=== PATIENT | female | born 1950 | race Caucasian/White ===

== ENCOUNTER 2020-09-22 19:38 | Inpatient (IN) ==
--- NOTE | 2020-09-22 20:25 | DR.DIZZY ---
HPI Time seen Time Seen by Provider: 09/22/20 20:00 HPI Comment HPI Comment: weakness- fevers- malaise. chills. dysuria. no cough- no SOB. Complaint Chief Complaint Doctor Comments: as above Chief Complaint:: pt has been to two ER visits at other facilities this week with two negative covid tests. Daughter states pt is dehydrated and only received 1 bag of fluid last night at the ED. Daughter states pt is very weak. Self Treatment fo Chief Complaint: two ER visits. discharged both times. COVID-19 Coronavirus risk:travel/contact w/high risk person: No Has patient experienced Coronavirus symptoms: No Nurses Notes Reviewed Nurses Notes Review: Yes Source History Provided: Patient and Family Member Mode of Arrival Mode of Arrival: Wheelchair Timing Onset of Chief Complaint: 09/15/20 Context Stroke Symptoms: None PMH PMH Past Medical History: Yes Past Medical History: Diabetes and Hypertension Past Surgical History: Yes Surgical History: Unknown Family History History of Family Medical Conditions: Yes Family Medical History: Diabetes Mellitus and Hypertension Infectious screening In the last 2 months have you had wt loss of >10#?: NO Have you had fever, night sweats or hemotysis?: No Have you traveled outside the country in the last 6 months?: No Isolation: Droplet ROS Review of Systems Constitutional: See HPI, Fever, Malaise, Weakness and Fatigue Eyes: No Symptoms Reported ENTM: No Symptoms Reported Respiratoy: No Symptoms Reported Cardiovascular: No Symptoms Reported Gastrointestinal/Abdominal: No Symptoms Reported Genitourinary: See HPI and Dysuria Neurological: No Symptoms Reported Musculoskeletal: No Symptoms Reported Integumentary: No Symptoms Reported Hematologic/Lymphatic: No Symptoms Reported Endocrine: No Symptoms Reported PE Vital Signs Vitals: Temperature 100.8 F Pulse Rate [Left] 76 Pulse Rate 74 Respiratory Rate 27 Blood Pressure [Left Arm] 168/79 Blood Pressure 169/80 O2 Sat by Pulse Oximetry 91 General Limitations: Altered Mental Status General Appearance: Alert and In Distress Head Head Exam: Normal Inspection and Atraumatic Eyes Eye exam: Normal Appearance, PERRL and EOMI ENT ENT Exam: Normal Exam, Normal Oropharynx, Normal External Ear Exam and Mucous Membranes Dry Neck Neck Exam: Normal Inspection Respiratory Respiratory Exam: Normal Lung Sounds Bilat; negative Accessory Muscle Use and Respiratory Distress Abdominal Exam Abdominal Exam: Normal Inspection, Normal Bowel Sounds and Soft Extremeties Extremities Exam: Normal Inspection and Full ROM Back Back Exam: Normal Inspection Neurologic Neurological Exam: Alert and Oriented X3; negative Motor Sensory Deficit and Reflexes Normal MDM Additional Information Obtained Additional Information Obtained From: Family Differential Diagnosis Differential Diagnosis: Dehydration COURSE Treatment Treatment: IV fluid resusc, IV abx. improving in ED. Reevaluation 1st: Improved ROR Labs Reviewed Laboratory Results Reviewed?: Yes Result Diagrams: 09/22/20 20:05 09/22/20 20:05 Laboratory: WBC 19.8 X10^3/uL (3.6-10.0) H 09/22/20 20:05 RBC 4.51 X10^6/uL (3.5-5.4) 09/22/20 20:05 Hgb 11.6 g/dL (12.0-16.0) L 09/22/20 20:05 Hct 37.0 % (36.0-47.0) 09/22/20 20:05 MCV 82.1 fL (80.0-100.0) 09/22/20 20:05 MCH 25.8 pg (27.0-34.0) L 09/22/20 20:05 MCHC 31.4 g/dL (33.0-35.0) L 09/22/20 20:05 RDW 18.0 % (11.6-16.5) H 09/22/20 20:05 Plt Count 168 X10^3/uL (150.0-450.0) 09/22/20 20:05 Plt Count Comment Adequate (ADEQUATE) 09/22/20 20:05 MPV 9.7 fL (7.4-11.0) 09/22/20 20:05 Neut % (Auto) 55.1 % (42.0-75.0) 09/22/20 20:05 Lymph % (Auto) 22.0 % (21.0-51.0) 09/22/20 20:05 [place] % (Auto) 22.0 % (0.0-13.0) H 09/22/20 20:05 Eos % (Auto) 0.1 % (0.9-2.9) L 09/22/20 20:05 Baso % (Auto) 0.8 % (0.2-1.0) 09/22/20 20:05 Neut # (Auto) 10.9 x10^3/uL (2.2-4.8) H 09/22/20 20:05 Lymph # (Auto) 4.4 X10^3/uL (1.3-2.9) H 09/22/20 20:05 [place] # (Auto) 4.3 x10^3/uL (0.3-0.8) H 09/22/20 20:05 Eos # (Auto) 0.0 x10^3/uL (0.0-0.2) 09/22/20 20:05 Baso # (Auto) 0.2 X10^3/uL (0.0-0.1) H 09/22/20 20:05 Absolute Nucleated RBC 1.6 /100WBC 09/22/20 20:05 Total Counted 100 09/22/20 20:05 Neutrophils % (Manual) 66 % (39-76) 09/22/20 20:05 Lymphocytes % (Manual) 20 % (13-43) 09/22/20 20:05 Monocytes % (Manual) 14 % (4-9) H 09/22/20 20:05 Plt Morphology Comment Normal (NORMAL) 09/22/20 20:05 RBC Morphology Abnormal (NORMAL) A 09/22/20 20:05 Hypochromasia Slight A 09/22/20 20:05 Anisocytosis Slight A 09/22/20 20:05 ESR 7 MM/HOUR (0-20) 09/22/20 20:05 PT 15.2 SECONDS (11.8-14.3) 09/22/20 20:05 INR Target Range - 09/22/20 20:05 INR 1.24 (0.8-1.3) 09/22/20 20:05 Sodium 140 mmol/L (136-145) 09/22/20 20:05 Corrected Sodium 140 mmol/L (136-145) 09/22/20 20:05 Potassium 3.7 mmol/L (3.5-5.1) 09/22/20 20:05 Chloride 103 mmol/L (98-107) 09/22/20 20:05 Carbon Dioxide 21.6 mmol/L (21-32) 09/22/20 20:05 BUN 14 mg/dL (7-18) 09/22/20 20:05 Creatinine 0.88 mg/dL (0.55-1.02) 09/22/20 20:05 Est GFR (MDRD) Af Amer > 60 (>60) 09/22/20 20:05 Est GFR (MDRD) Non-Af > 60 (>60) 09/22/20 20:05 Glucose 117 mg/dL (65-99) H 09/22/20 20:05 Lactic Acid 3.8 mmol/L (0.4-2.0) H 09/22/20 20:05 Calcium 10.1 mg/dL (8.5-10.1) 09/22/20 20:05 Corrected Calcium 10.9 mg/dL (8.5-10.1) H 09/22/20 20:05 Magnesium 2.0 mg/dL (1.7-2.9) 09/22/20 20:05 Total Bilirubin 1.20 mg/dL (0.2-1.0) H 09/22/20 20:05 AST 225 Units/L (15-37) H 09/22/20 20:05 ALT 73 Units/L (12-78) 09/22/20 20:05 Alkaline Phosphatase 378 Units/L (46-116) H 09/22/20 20:05 Lactate Dehydrogenase 4395 Units/L (81-234) H 09/22/20 20:05 Creatine Kinase 267 Units/L (26-192) H 09/22/20 20:05 CK-MB (CK-2) 1.3 ng/mL (0-4.0) 09/22/20 20:05 CK/CKMB % Calc 0.5 % (<4) 09/22/20 20:05 Troponin I < 0.02 ng/mL (0-1.5) 09/22/20 20:05 C-Reactive Protein 48.90 mg/L (0-3.0) H 09/22/20 20:05 B-Natriuretic Peptide 91.1 pg/mL (0-79) H 09/22/20 20:05 Total Protein 6.3 g/dL (6.4-8.2) L 09/22/20 20:05 Albumin 3.0 g/dL (3.4-5.0) L 09/22/20 20:05 Globulin 3.3 g/dL (2.5-4.5) 09/22/20 20:05 Albumin/Globulin Ratio 0.9 Ratio (1.1-2.1) L 09/22/20 20:05 Specimen Type Catherized urine 09/22/20 21:01 Urine Color Yellow (YELLOW) 09/22/20 21:01 Urine Appearance Slightly hazy (CLEAR) 09/22/20 21:01 Urine pH 5.0 (5.0 - 8.0) 09/22/20 21:01 Ur Specific [place] 1.020 (1.000-1.030) 09/22/20 21:01 Urine Protein 4+ (NEGATIVE) 09/22/20 21: Urine Glucose (UA) Negative (NEGATIVE) 09/22/20 21: Urine Ketones 2+ (NEGATIVE) 09/22/20 21: Urine Occult Blood 4+ (NEGATIVE) 09/22/20 21: Urine Nitrite Positive (NEGATIVE) 09/22/20 21: Urine Bilirubin Negative (NEGATIVE) 09/22/20 21: Urine Urobilinogen 2+ (NORMAL) 09/22/20 21: Ur Leukocyte Esterase 1+ (NEGATIVE) 09/22/20 21:01 Urine Opiates Screen Negative (NEG=<300) 09/22/20 21:01 Urine Methadone Screen Negative (NEG=<300) 09/22/20 21:01 Ur Barbiturates Screen Negative (NEG=<200) 09/22/20 21:01 Ur Phencyclidine Scrn Negative (NEG=<25) 09/22/20 21:01 Ur Amphetamines Screen Negative (NEG=<1000) 09/22/20 21: U Benzodiazepines Scrn Negative (NEG=<200) 09/22/20 21:01 Urine Cocaine Screen Negative (NEG=<300) 09/22/20 21:01 U Marijuana (THC) Screen Negative (NEG=<50) 09/22/20 21:01 Other Results Comments: elev lactate, elev wbc. pos UA XRAY XRAY Interpreted by: Radiologist X-ray Results: neg plain films chest Opioid Opioid Risk Tool Total: 0 Total Score Risk Category: Low Risk Copyright: Efren CARDENAS predicting aberrant behaviors Diagnosis Discharge Problem: Sepsis, Acute UTI Instructions Forms: Precautions for COVID19 Patient Portal Social Distancing ADDITIONAL NOTES Additional Notes Additional Notes: spoke w dr tong who agrees to admit for urosepsis
[2020-09-22] MEDS ORDERED: NS 1000 ML 1,000 ML ONE ×2 (20:28→21:32)
[2020-09-22] MEDS: NS 1000 ML 1,000 ML IV ONE ×4 (20:32→21:42)
[2020-09-22 20:46] LABS: BASOPHILS # (AUTO) 0.2 X10^3/uL (0.0-0.1); BASOPHILS % (AUTO) 0.8 % (0.2-1.0); EOSINOPHILS % (AUTO) 0.1 % (0.9-2.9); HEMOGLOBIN 11.6 g/dL (12.0-16.0); LYMPHOCYTES # (AUTO) 4.4 X10^3/uL (1.3-2.9); MEAN CORPUSCULAR HEMOGLOBIN 25.8 pg (27.0-34.0); MEAN CORPUSCULAR HGB CONC 31.4 g/dL (33.0-35.0); MEAN CORPUSCULAR VOLUME 82.1 fL (80.0-100.0); MEAN PLATELET VOLUME 9.7 fL (7.4-11.0); MONOCYTES # (AUTO) 4.3 x10^3/uL (0.3-0.8); NEUTROPHILS # (AUTO) 10.9 x10^3/uL (2.2-4.8); NEUTROPHILS % (AUTO) 55.1 % (42.0-75.0); PLATELET COUNT 168 X10^3/uL (150.0-450.0); RED BLOOD COUNT 4.51 X10^6/uL (3.5-5.4); WHITE BLOOD COUNT 19.8 X10^3/uL (3.6-10.0)
--- NOTE | 2020-09-22 20:53 | RAD ---
HISTORYShortness of breath; WeaknessSTUDYCHEST, 1 VIEWCOMPARISONNone availableTECHNIQUEChest radiographic imaging, AP portable projection, 1 imageFINDINGSNo cardiomegaly.No focal airspace disease.No pleural effusion.No pneumothorax.No acute osseous abnormality.IMPRESSIONNo imaging findings of acute cardiopulmonary disease.Electronically signed by: Martin Rivers (Sep 22, 2020 20:50:40)
[2020-09-22 20:59] LABS: LACTIC ACID 3.8 mmol/L (0.4-2.0)
[2020-09-22 21:08] LABS: BLOOD UREA NITROGEN 14 mg/dL (7-18); CALCIUM 10.1 mg/dL (8.5-10.1); CARBON DIOXIDE 21.6 mmol/L (21-32); CHLORIDE 103 mmol/L (98-107); COR NA(FOR HYPERGLY) 140 mmol/L (136-145); CREATININE 0.88 mg/dL (0.55-1.02); SODIUM 140 mmol/L (136-145); TROPONIN I < 0.02 ng/mL (0-1.5); eGFR NON BLACK RACES > 60 (>60)
[2020-09-22 21:12] LABS: ALANINE AMINOTRANSFERASE 73 Units/L (12-78); ALKALINE PHOSPHATASE 378 Units/L (46-116); ASPARTATE AMINO TRANSFERASE 225 Units/L (15-37); CKMB % 0.5 % (<4); COR CA(FOR HYPOALB) 10.9 mg/dL (8.5-10.1); CREATINE KINASE 267 Units/L (26-192); CREATINE KINASE MB 1.3 ng/mL (0-4.0); TOTAL PROTEIN 6.3 g/dL (6.4-8.2)
[2020-09-22 21:22] LABS: ANISOCYTOSIS SLIGHT; HYPOCHROMASIA SLIGHT; PLATELET MORPHOLOGY COMMENT NORMAL (NORMAL)
[2020-09-22 21:24] LABS: ERYTHROCYTE SEDIMENTATION RATE 7 MM/HOUR (0-20)
[2020-09-22 21:26] LABS: LACTATE DEHYDROGENASE 4395 Units/L (81-234)
[2020-09-22] MEDS ORDERED: ROCEPHIN 1 GRAM IV PREMIX 1 G/50 ML IV.SOLN. IV ONE ×2 (21:28→21:33)
[2020-09-22 21:36] LABS: BILIRUBIN,URINE NEGATIVE (NEGATIVE); BLOOD/HEMOGLOBIN,URINE 4+ (NEGATIVE); GLUCOSE, URINE NEGATIVE (NEGATIVE); KETONES,URINE 2+ (NEGATIVE); LEUKOCYTE ESTERASE ,URINE 1+ (NEGATIVE); NITRITES,URINE POSITIVE (NEGATIVE); PROTEIN,URINE 4+ (NEGATIVE); UROBILINOGEN,URINE 2+ (NORMAL)
[2020-09-22 21:38] LABS: APPEARANCE,URINE SLIGHTLY HAZY (CLEAR); COLOR,URINE YELLOW (YELLOW)
[2020-09-23 00:32] VITALS: BMI 25.8
[2020-09-23] MEDS: NS 1000 ML 1,000 ML IV SCH ×3 (00:45→15:45)
[2020-09-23] MEDS ORDERED: NS 1000 ML 1,000 ML ONE (00:49)
[2020-09-23 05:22] LABS: BASOPHILS # (AUTO) 0.1 X10^3/uL (0.0-0.1); BASOPHILS % (AUTO) 0.4 % (0.2-1.0); EOSINOPHILS % (AUTO) 0.1 % (0.9-2.9); HEMATOCRIT 33.4 % (36.0-47.0); HEMOGLOBIN 10.5 g/dL (12.0-16.0); LYMPHOCYTES # (AUTO) 3.9 X10^3/uL (1.3-2.9); LYMPHOCYTES % (AUTO) 26.6 % (21.0-51.0); MEAN CORPUSCULAR HEMOGLOBIN 25.8 pg (27.0-34.0); MEAN CORPUSCULAR HGB CONC 31.6 g/dL (33.0-35.0); MEAN CORPUSCULAR VOLUME 81.8 fL (80.0-100.0); MEAN PLATELET VOLUME 10.2 fL (7.4-11.0); MONOCYTES # (AUTO) 2.6 x10^3/uL (0.3-0.8); MONOCYTES % (AUTO) 17.6 % (0.0-13.0); NEUTROPHILS # (AUTO) 8.1 x10^3/uL (2.2-4.8); NEUTROPHILS % (AUTO) 55.3 % (42.0-75.0); PLATELET COUNT 150 X10^3/uL (150.0-450.0); RED BLOOD COUNT 4.08 X10^6/uL (3.5-5.4); RED CELL DISTRIBUTION WIDTH 18.5 % (11.6-16.5); WHITE BLOOD COUNT 14.6 X10^3/uL (3.6-10.0)
[2020-09-23 05:30] LABS: ALANINE AMINOTRANSFERASE 57 Units/L (12-78); ALBUMIN 2.7 g/dL (3.4-5.0); ALKALINE PHOSPHATASE 310 Units/L (46-116); ASPARTATE AMINO TRANSFERASE 186 Units/L (15-37); BLOOD UREA NITROGEN 13 mg/dL (7-18); CALCIUM 9.2 mg/dL (8.5-10.1); CARBON DIOXIDE 21.9 mmol/L (21-32); CHLORIDE 106 mmol/L (98-107); COR CA(FOR HYPOALB) 10.2 mg/dL (8.5-10.1); COR NA(FOR HYPERGLY) 142 mmol/L (136-145); CREATININE 0.71 mg/dL (0.55-1.02); SODIUM 141 mmol/L (136-145); TOTAL PROTEIN 5.7 g/dL (6.4-8.2); eGFR NON BLACK RACES > 60 (>60)
[2020-09-23 06:05] LABS: ANISOCYTOSIS SLIGHT; HYPOCHROMASIA SLIGHT; PLATELET MORPHOLOGY COMMENT NORMAL (NORMAL)
[2020-09-23] MEDS: LEVAQUIN PREMIX IV 500 MG 500 MG/100 ML BAG IV SCH (10:37)
[2020-09-23] MEDS ORDERED: PHARMACY CONSULT - TPN XX SCH (11:00)
[2020-09-23] MEDS: FORTAZ or TAZICEF VIAL INJ 1 G in NS 100 ML IV + SPIKE MINIBAG* 100 ML IV SCH ×5 (11:11→21:23)
--- NOTE | 2020-09-23 12:18 | DR.H&P ---
H&P - History & Physical for Day of: H&P Date: 09/23/20 - Chief Complaint Chief Complaint: NAUSEA, VOMITING, WEAKNESS, FEVER, CHILLS, DYSURIA, AND SHORTNESS OF BREATH - History of Present Illness History of Present Illness: IS A 70 YEAR OLD FEMALE WHO PRESENTED TO THE ER WITH COMPLAINTS OF NAUSEA, VOMITING, WEAKNESS, FEVER, CHILLS, DYSURIA, AND SHORTNESS OF BREATH. PATIENT HAS BEEN SEEN AT AN ER FACILITY ON TWO DIFFERENT OCCASIONS THIS WEEK. SHE WAS GIVEN ONE LITER OF IV FLUIDS ON WEDNESDAY NIGHT AND WAS THEN DISCHARGED. SHE HAS TESTED NEGATIVE FOR COVID-19 TWO TIMES WELL. HER PMH INCLUDES DIABETES AND HYPERTENSION. ON ARRIVAL TO THE ER, VITALS WERE 100.8-76-18-92%RA-183/92. LABS WERE OBTAINED. ABNORMAL LAB VALUES INCLUDE THE FOLLOWING: WBC 19.8, HGB 11.6, GLUCOSE 117, LACTIC ACID 3.8, TOTAL BILI 1.20, AST 225, ALK PHOS 378, LACTATE DEHYDROGENASE 4395, CREATINE KINASE 267, CRP 48.90, BNP 91.1, TOTAL PROTEIN 6.3, ALBUMIN 3.0. URINALYSIS REVEALED POSITIVE NITRITES, OCCULT BLOOD 1+, KETONES 2+, LEUKOCYTES 1+, PROTEIN 4+. COVID-19, INFLUENZA, AND RSV NEGATIVE. BLOOD CULTURES WERE SET UP. A CHEST XRAY WAS OBTAINED AND REVEALED: No imaging findings of acute cardiopulmonary disease. WHILE IN THE ER, SHE WAS GIVEN A NORMAL SALINE BOLUS X 2 LITERS, ROCEPHIN 1G IV X 1. SHE WAS ADMITTED TO THE HOSPITAL FOR FURTHER EVALUATION AND TREATMENT OF SEPSIS DUE TO UTI. SHE WAS STARTED ON NS AT KVO, LEVAQUIN 500MG IV DAILY, FORTAZ 1G IV Q8H, ZOFRAN 4MG IV Q4H PRN NAUSEA, CLINIMIX FOR NUTRITION AT 40 ML/HR. OTHERWISE, WE WILL FOLLOW UP WITH AM LABS AND CONTINUE TO MONITOR. TIME SPENT ON CLINICAL ASSESSMENT, REVIEWING LABS AND IMAGING, DECISION MAKING, AND DOCUMENTATION GREATER THAN 75 MINUTES. - Past Medical History Past Medical History: Hypertension, Diabetes - Past Surgical History Surgical History: Appendectomy, Cholecystectomy, Hysterectomy, Weight Loss Surgery - Family History Family Medical History: Hypertension - Social History Does patient currently use any type of tobacco product: No Have you used tobacco products in the last 12 months: No Type of Tobacco Use: None Alcohol Use: None Drug Use: None - Medications Home Medications: codeine Allergy (Verified 09/22/20 20:50) CONTINUE taking the following medications aspirin [Aspir-81] 81 mg PO DAILY 09/22/20 [History] benzonatate 200 mg PO Q8H PRN 09/22/20 [History] bisoprolol-hydrochlorothiazide 1 tab PO DAILY 09/22/20 [History] ciprofloxacin HCl 500 mg PO BID 09/22/20 [History] levothyroxine 75 mcg PO DAILY 09/22/20 [History] lisinopril 10 mg PO DAILY 09/22/20 [History] metformin 500 mg PO DAILY 09/22/20 [History] ondansetron 4 mg PO Q8H PRN 09/22/20 [History] sertraline 50 mg PO DAILY 09/22/20 [History] simvastatin 40 mg PO QHS 09/22/20 [History] - Review of Systems Constitutional: See HPI, Fever, Chills, Weakness Eyes: No Symptoms Reported ENT: No Symptoms Reported Respiratory: Shortness of Breath. denies: Cough Cardiovascular: No Symptoms Reported Gastrointestinal: See HPI, Nausea, Vomiting Genitourinary: No Symptoms Reported Musculoskeletal: No Symptoms Reported Skin: No Symptoms Reported Neurological: Weakness - Physical Exam Vital Signs: Temperature 97.1 F Pulse Rate [Left] 70 Pulse Rate 64 Respiratory Rate 20 Blood Pressure [Left Arm] 191/80 Blood Pressure 135/84 O2 Sat by Pulse Oximetry 94 Oriented: Normal Eyes: Normal Ear: Normal Nose: Normal Throat: Normal Respiratory: Diminished Throughout Cardiovascular: Normal : Normal Auscultation: Bowel Sounds: Normal Palpation: Normal Tenderness: Normal Skin: Normal Musculoskeletal: Normal Psychiatric: Normal Mood Description: Calm Affect: Normal Speech Pattern: Clear - Assessment/Plan (1) Acute UTI Status: Acute Plan: ADMIT, NS AT KVO, LEVAQUIN 500MG IV DAILY, FORTAZ 1G IV Q8H, ZOFRAN 4MG IV Q4H PRN NAUSEA, CLINIMIX FOR NUTRITION AT 40 ML/HR. (2) Sepsis Qualifiers: Sepsis type: sepsis due to unspecified organism Sepsis acute organ dysfunction status: unspecified Qualified Code(s): A41.9 - Sepsis, unspecified organism Status: Acute (3) Intractable nausea and vomiting Status: Acute - Allergies Allergies/Adverse Reactions: Allergies Allergy/AdvReac Type Severity Reaction Status Date / Time codeine Allergy Verified 09/22/20 20:50
[2020-09-23] MEDS: CLINIMIX IV SCH (13:15)
[2020-09-23] MEDS ORDERED: BUTT CREAM (COMPOUND) TOP PRN (13:45)
[2020-09-23] MEDS: VISTARIL PO PRN (15:58)
[2020-09-24] MEDS: VISTARIL PO PRN
[2020-09-24] MEDS: NS 1000 ML 1,000 ML IV SCH ×4 (01:17→22:47)
[2020-09-24 04:35] LABS: BASOPHILS # (AUTO) 0.3 X10^3/uL (0.0-0.1); EOSINOPHILS % (AUTO) 0.1 % (0.9-2.9); HEMATOCRIT 34.1 % (36.0-47.0); HEMOGLOBIN 10.7 g/dL (12.0-16.0); LYMPHOCYTES # (AUTO) 6.6 X10^3/uL (1.3-2.9); LYMPHOCYTES % (AUTO) 27.1 % (21.0-51.0); MEAN CORPUSCULAR HEMOGLOBIN 25.4 pg (27.0-34.0); MEAN CORPUSCULAR HGB CONC 31.3 g/dL (33.0-35.0); MEAN CORPUSCULAR VOLUME 81.1 fL (80.0-100.0); MONOCYTES # (AUTO) 6.4 x10^3/uL (0.3-0.8); MONOCYTES % (AUTO) 26.2 % (0.0-13.0); NEUTROPHILS # (AUTO) 11.1 x10^3/uL (2.2-4.8); NEUTROPHILS % (AUTO) 45.6 % (42.0-75.0); RED BLOOD COUNT 4.21 X10^6/uL (3.5-5.4); RED CELL DISTRIBUTION WIDTH 19.1 % (11.6-16.5); WHITE BLOOD COUNT 24.5 X10^3/uL (3.6-10.0)
[2020-09-24 04:48] LABS: ALANINE AMINOTRANSFERASE 45 Units/L (12-78); ALBUMIN 2.7 g/dL (3.4-5.0); ALKALINE PHOSPHATASE 302 Units/L (46-116); ASPARTATE AMINO TRANSFERASE 185 Units/L (15-37); BLOOD UREA NITROGEN 13 mg/dL (7-18); CARBON DIOXIDE 22.3 mmol/L (21-32); CHLORIDE 104 mmol/L (98-107); COR NA(FOR HYPERGLY) 138 mmol/L (136-145); CREATININE 0.79 mg/dL (0.55-1.02); SODIUM 138 mmol/L (136-145); TOTAL PROTEIN 5.7 g/dL (6.4-8.2); eGFR NON BLACK RACES > 60 (>60)
[2020-09-24] MEDS ORDERED: POTASSIUM CHLORIDE LIQ 20 MEQ UDC PO PRN (05:19)
[2020-09-24] MEDS ORDERED: POTASSIUM CHL 40 MEQ/NS 0.45% 500 ML IV PRN (05:19)
[2020-09-24] MEDS ORDERED: MICRO K EXTEN CAP 10 MEQ PO PRN (05:19)
[2020-09-24] MEDS ORDERED: KLOR-CON PO PRN (05:19)
[2020-09-24] MEDS ORDERED: POTASSIUM CHL 60 MEQ/NS 0.45% 500 ML IV PRN (05:19)
[2020-09-24] MEDS ORDERED: K-DUR TAB 20 MEQ PO PRN (05:19)
[2020-09-24] MEDS: FORTAZ or TAZICEF VIAL INJ 1 G in NS 100 ML IV + SPIKE MINIBAG* 100 ML IV SCH ×3 (06:21→21:02)
[2020-09-24 08:36] LABS: AMYLASE 15 Units/L (25-115); LIPASE 193 Units/L (73-393)
[2020-09-24] MEDS: CLINIMIX IV SCH (08:47)
[2020-09-24] MEDS: LEVAQUIN PREMIX IV 500 MG 500 MG/100 ML BAG IV SCH (08:56)
[2020-09-24] MEDS ORDERED: NS 100 ML IV 100 ML IV ONE (11:01)
--- NOTE | 2020-09-24 11:52 | CT ---
HISTORY:Nausea, vomiting, abdominal pain, history of gastric surgery, appendectomyStudy: CT abdomen and pelvis with contrastComparison:NoneTechnique: Multiple axial images of the abdomen and pelvis were obtained with IV contrast. Oral contrast was not administered. Dose reduction techniques including Automated Exposure Control (AEC) and adjustment of mA and kV were utilized.FINDINGS:The lung bases are clear. Spleen is mildly enlarged measuring 13.6 centimeters in craniocaudal dimension. There is fatty infiltration of the pancreas. No renal calculi or obstructive uropathy. There is a 1.9 centimeter hypodense lesion in the liver axial image 28 for which further evaluation with ultrasound is recommended. There is gallbladder wall thickening also noted which can be further evaluated with ultrasound. There is an indeterminate partially enhancing right adrenal mass measuring 2 centimeters for which further evaluation is recommended. There is fat stranding around the duodenum and retroperitoneum. Correlate for pancreatitis or duodenitis.No free intraperitoneal air. Small amount of ascites is seen along the left pericolic gutter and in the pelvis. Appendix is removed. 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 No evidence of abscess. Scattered colonic diverticula are present without inflammation.There are degenerative changes of the lumbosacral spine with grade 1-2 anterolisthesis of L4 on L5. No pars defects identified. The vascular structures are unremarkable . No pathologically enlarged lymph nodes are identified.Urinary bladder is decompressed by a Zazueta catheter. Uterus is removed.IMPRESSION ABDOMEN/PELVIS:1. Mild nonspecific retroperitoneal stranding around the duodenum for which clinical correlation for duodenitis or pancreatitis is recommended. A small amount of free fluid is seen along the left pericolic gutter and in the pelvis.2. Gallbladder wall thickening which can be further evaluated ultrasound. There is also 1.9 centimeter hypodense lesion in the right hepatic lobe which can be further evaluated with ultrasound.3. Indeterminate 2 centimeter right adrenal nodule that does not meet criteria for adenoma. Nonemergent adrenal protocol CT recommended for full characterization.4. Mild splenomegaly and additional chronic findings as described.Electronically signed by: LUZ MARINA GUAMAN (Sep 24, 2020 11:50:17)
[2020-09-24 11:57] LABS: BILIRUBIN,URINE NEGATIVE (NEGATIVE); BLOOD/HEMOGLOBIN,URINE 5+ (NEGATIVE); GLUCOSE, URINE NEGATIVE (NEGATIVE); KETONES,URINE NEGATIVE (NEGATIVE); LEUKOCYTE ESTERASE ,URINE NEGATIVE (NEGATIVE); NITRITES,URINE NEGATIVE (NEGATIVE); PROTEIN,URINE 3+ (NEGATIVE); UROBILINOGEN,URINE 1+ (NORMAL)
[2020-09-24 12:07] LABS: APPEARANCE,URINE SLIGHTLY HAZY (CLEAR); BACTERIA,URINE TRACE /HPF (NEGATIVE); COLOR,URINE YELLOW (YELLOW); SQUAMOUS EPITHELIAL CELL,UR RARE /HPF (NEGATIVE)
--- NOTE | 2020-09-24 15:09 | US ---
HISTORY:Right upper quadrant painStudy: Right upper quadrant abdominal ultrasoundComparison: CT same dayTechnique: Multiple elizabeth scale and color flow Doppler images of the right upper quadrant were obtained.Findings:There is mild fatty infiltration of the liver. There is a hyperechoic mass in the right hepatic lobe measuring 2.6 centimeters compatible with a hemangioma when correlated with today's CT exam. There is hepatopetal flow in the portal vein. Gallbladder is distended and thick walled measuring 5 mm. There is pericholecystic fluid and large volume of dense sludge in the gallbladder lumen. A positive sonographic Agudelo sign was reported.The right kidney appears normal in size without focal parenchymal mass or nephrolithiasis. The right kidney measures 9.8 centimeters. No evidence of hydronephrosis. The visualized portions of the pancreas are unremarkable. IVC is patent.IMPRESSION:1. Distended gallbladder filled with sludge. There is gallbladder wall thickening, pericholecystic fluid and positive sonographic Agudelo sign concerning for acute cholecystitis.2. Benign 2.6 centimeter hemangioma in the liver.Electronically signed by: LUZ MARINA GUAMAN (Sep 24, 2020 15:07:53)
[2020-09-25 04:46] LABS: BASOPHILS # (AUTO) 0.4 X10^3/uL (0.0-0.1); BASOPHILS % (AUTO) 1.2 % (0.2-1.0); EOSINOPHILS # (AUTO) 0.1 x10^3/uL (0.0-0.2); EOSINOPHILS % (AUTO) 0.4 % (0.9-2.9); HEMATOCRIT 34.3 % (36.0-47.0); HEMOGLOBIN 10.8 g/dL (12.0-16.0); LYMPHOCYTES # (AUTO) 7.8 X10^3/uL (1.3-2.9); LYMPHOCYTES % (AUTO) 25.2 % (21.0-51.0); MEAN CORPUSCULAR HEMOGLOBIN 25.4 pg (27.0-34.0); MEAN CORPUSCULAR HGB CONC 31.3 g/dL (33.0-35.0); MONOCYTES % (AUTO) 25.8 % (0.0-13.0); NEUTROPHILS # (AUTO) 14.7 x10^3/uL (2.2-4.8); NEUTROPHILS % (AUTO) 47.4 % (42.0-75.0); PLATELET COUNT 158 X10^3/uL (150.0-450.0); RED BLOOD COUNT 4.24 X10^6/uL (3.5-5.4); RED CELL DISTRIBUTION WIDTH 19.2 % (11.6-16.5)
[2020-09-25 04:54] LABS: ALANINE AMINOTRANSFERASE 39 Units/L (12-78); ALBUMIN 2.5 g/dL (3.4-5.0); ALKALINE PHOSPHATASE 303 Units/L (46-116); ASPARTATE AMINO TRANSFERASE 214 Units/L (15-37); BLOOD UREA NITROGEN 11 mg/dL (7-18); CARBON DIOXIDE 22.2 mmol/L (21-32); CHLORIDE 105 mmol/L (98-107); COR CA(FOR HYPOALB) 11.2 mg/dL (8.5-10.1); CREATININE 0.74 mg/dL (0.55-1.02); SODIUM 140 mmol/L (136-145); TOTAL PROTEIN 5.5 g/dL (6.4-8.2); eGFR NON BLACK RACES > 60 (>60)
[2020-09-25 05:20] LABS: PLATELET MORPHOLOGY COMMENT NORMAL (NORMAL)
[2020-09-25] MEDS: FORTAZ or TAZICEF VIAL INJ 1 G in NS 100 ML IV + SPIKE MINIBAG* 100 ML IV SCH ×3 (05:39→22:40)
[2020-09-25] MEDS: LEVAQUIN PREMIX IV 500 MG 500 MG/100 ML BAG IV SCH (08:21)
[2020-09-25] MEDS: NS 1000 ML 1,000 ML IV SCH ×3 (08:21→23:31)
[2020-09-25] MEDS ORDERED: TRACE ELEMENTS IV SCH ×10 (09:00→13:00)
[2020-09-25] MEDS ORDERED: CLINIMIX IV SCH ×10 (09:00→13:00)
[2020-09-25] MEDS ORDERED: [UNRECOGNIZED DRUG - OTHER] IV SCH ×10 (09:00→13:00)
--- NOTE | 2020-09-25 11:07 | PCM.PROG ---
Progress Note - Progress Note for Day of Date of Exam: 09/24/20 - Subjective Subjective: WAS ADMITTED FOR TREATMENT OF ACUTE UTI, SEPSIS, AND ABDOMINAL PAIN. SHE CONTINUES WITH ABDOMINAL PAIN AND NAUSEA THIS MORNING. SHE HAS HAD AN ELEVATED TEMPERATURE THROUGHOUT THE NIGHT. ON EXAMINATION, HEART IS REGULAR IN RATE AND RHYTHM. BILATERAL LUNGS ARE NOTED WITH DIMINISHED LUNG SOUNDS THROUGHOUT. ABDOMEN IS ROUND, SOFT, AND NOTED WITH DIFFUSE TENDERNESS TO PALPATION. NORMAL BOWEL SOUNDS ARE NOTED IN ALL QUADRANTS. HER VITALS THIS MORNING ARE: 99.8-84-20-91%-179/81. LABS WERE OBTAINED. ABNORMAL LAB VALUES INCLUDE THE FOLLOWING: WBC 24.5, HGB 10.7, HCT 34.1, POTASSIUM 3.4, GLUCOSE 115, AST 185, ALK PHOS 302, TOTAL PROTEIN 5.7, ALBUMIN 2.7, AMYLASE 15, 15. BLOOD CULTURES ARE PENDING. WE OBTAINED AN ABDOMEN/PELVIS CT WITH CONTRAST. IT REVEALED: 1. Mild nonspecific retroperitoneal stranding around the duodenum for which clinical correlation for duodenitis or pancreatitis is recommended. A small amount of free fluid is seen along the left pericolic gutter and in the p yesenia. 2. Gallbladder wall thickening which can be further evaluated ultrasound. There is also 1.9 centimeter hypodense lesion in the right hepatic lobe which can be further evaluated with ultrasound. 3. Indeterminate 2 centimeter right adrenal nodule that does not meet criteria for adenoma. Nonemergent adrenal protocol CT recommended for full characterization. 4. Mild splenomegaly. SHE IS CURRENTLY RECEIVING NS AT KVO, LEVAQUIN 500MG IV DAILY, FORTAZ 1G IV Q8H, ZOFRAN 4MG IV Q4H PRN NAUSEA, CLINIMIX FOR NUTRITION AT 40 ML/HR. TODAY, WE WILL REPEAT A URINALYSIS AND SET UP A URINE CULTURE. WE WILL OBTAIN A GALLBLADDER ULTRASOUND. OTHERWISE, WE PLAN TO FOLLOW UP WITH AM LABS AND CONTINUE TO MO NITOR. TIME SPENT ON CLINICAL ASSESSMENT, REVIEWING LABS AND IMAGING, DECISION MAKING, AND DOCUMENTATION GREATER THAN 75 MINUTES. - Past Medical Family Social History Past Med/Fam/Surg Hx: No changes since H&P Allergies: Allergies codeine Allergy (Verified 09/22/20 20:50) - Review of Systems ROS: No change since H&P - Vital Signs and I&O's Vital Signs: Temperature 99.1 F Pulse Rate [Left] 83 Pulse Rate 64 Respiratory Rate 16 Blood Pressure [Right Arm] 183/85 Blood Pressure [Left Arm] 158/79 Blood Pressure 135/84 O2 Sat by Pulse Oximetry 94 Intake and Output: Intake & Output 09/22/20 09/23/20 09/24/20 09/25/20 11:59 11:59 11:59 11:59 Intake Total 980 / 980 2800 / 2800 2470 / 2470 Output Total 600 / 600 1225 / 1225 2350 / 2350 Balance 380 / 380 1575 / 1575 120 / 120 - Physical Exam Oriented: Normal Eyes: Normal Ear: Normal Nose: Normal Throat: Normal Respiratory: Generalized, Diminished Cardiovascular: Normal : Normal Auscultation: Bowel Sounds: Normal Palpation: Normal Tenderness: Normal Skin: Normal Musculoskeletal: Normal Psychiatric: Normal Mood Description: Calm Affect: Normal Speech Pattern: Appropriate - Laboratory and Diagnostics Result Diagrams: 09/25/20 04:05 09/25/20 04:05 Labs: 09/24/20 11:46 Urine,Clean Catch Urine Culture - Preliminary 09/22/20 20:30 Blood Blood Culture - Preliminary 09/22/20 20:05 Blood Blood Culture - Preliminary Laboratory WBC 31.0 X10^3/uL (3.6-10.0) H* 09/25/20 04:05 RBC 4.24 X10^6/uL (3.5-5.4) 09/25/20 04:05 Hgb 10.8 g/dL (12.0-16.0) L 09/25/20 04:05 Hct 34.3 % (36.0-47.0) L 09/25/20 04:05 MCV 81.0 fL (80.0-100.0) 09/25/20 04:05 MCH 25.4 pg (27.0-34.0) L 09/25/20 04:05 MCHC 31.3 g/dL (33.0-35.0) L 09/25/20 04:05 RDW 19.2 % (11.6-16.5) H 09/25/20 04:05 Plt Count 158 X10^3/uL (150.0-450.0) 09/25/20 04:05 Plt Count Comment Adequate (ADEQUATE) 09/25/20 04:05 MPV 10.0 fL (7.4-11.0) 09/25/20 04:05 Neut % (Auto) 47.4 % (42.0-75.0) 09/25/20 04:05 Lymph % (Auto) 25.2 % (21.0-51.0) 09/25/20 04:05 [place] % (Auto) 25.8 % (0.0-13.0) H 09/25/20 04:05 Eos % (Auto) 0.4 % (0.9-2.9) L 09/25/20 04:05 Baso % (Auto) 1.2 % (0.2-1.0) H 09/25/20 04:05 Neut # (Auto) 14.7 x10^3/uL (2.2-4.8) H 09/25/20 04:05 Lymph # (Auto) 7.8 X10^3/uL (1.3-2.9) H 09/25/20 04:05 [place] # (Auto) 8.0 x10^3/uL (0.3-0.8) H 09/25/20 04:05 Eos # (Auto) 0.1 x10^3/uL (0.0-0.2) 09/25/20 04:05 Baso # (Auto) 0.4 X10^3/uL (0.0-0.1) H 09/25/20 04:05 Absolute Nucleated RBC 6.3 /100WBC 09/25/20 04:05 Total Counted 100 09/25/20 04:05 Neutrophils % (Manual) 68 % (39-76) 09/25/20 04:05 Band Neutrophils % Cancelled 09/24/20 04:00 Lymphocytes % (Manual) 20 % (13-43) 09/25/20 04:05 Monocytes % (Manual) 12 % (4-9) H 09/25/20 04:05 Eosinophils % (Manual) Cancelled 09/24/20 04:00 Basophils % (Manual) Cancelled 09/24/20 04:00 Metamyelocytes % Cancelled 09/24/20 04:00 Myelocytes % Cancelled 09/24/20 04:00 Promyelocytes % Cancelled 09/24/20 04:00 Nucleated RBCs 12 09/25/20 04:05 Atypical Lymphocytes Cancelled 09/24/20 04:00 Blast Cells Cancelled 09/24/20 04:00 Smudge Cells Cancelled 09/24/20 04:00 Toxic Granulation Cancelled 09/24/20 04:00 Dohle Bodies Cancelled 09/24/20 04:00 Isabeal Rods Cancelled 09/24/20 04:00 Plt Clumps, EDTA Cancelled 09/24/20 04:00 Giant Platelets Cancelled 09/24/20 04:00 Plt Morphology Comment Normal (NORMAL) 09/25/20 04:05 RBC Morphology Normal (NORMAL) 09/25/20 04:05 Dimorphic RBCs Cancelled 09/24/20 04:00 Polychromasia Cancelled 09/24/20 04:00 Hypochromasia Cancelled 09/24/20 04:00 Poikilocytosis Cancelled 09/24/20 04:00 Basophilic Stippling Cancelled 09/24/20 04:00 Anisocytosis Cancelled 09/24/20 04:00 Microcytosis Cancelled 09/24/20 04:00 Macrocytosis Cancelled 09/24/20 04:00 Spherocytes Cancelled 09/24/20 04:00 Pappenheimer Bodies Cancelled 09/24/20 04:00 Sickle Cells Cancelled 09/24/20 04:00 Target Cells Cancelled 09/24/20 04:00 Tear Drop Cells Cancelled 09/24/20 04:00 Ovalocytes Cancelled 09/24/20 04:00 Stomatocytes Cancelled 09/24/20 04:00 Helmet Cells Cancelled 09/24/20 04:00 Lockhart-Antoine Bodies Cancelled 09/24/20 04:00 [place] Rings Cancelled 09/24/20 04:00 [place] Cells Cancelled 09/24/20 04:00 Crenated Cell Cancelled 09/24/20 04:00 Acanthocytes (Spur) Cancelled 09/24/20 04:00 Rouleaux Cancelled 09/24/20 04:00 Schistocytes Cancelled 09/24/20 04:00 ESR 7 MM/HOUR (0-20) 09/22/20 20:05 PT 15.2 SECONDS (11.8-14.3) 09/22/20 20:05 INR Target Range - 09/22/20 20:05 INR 1.24 (0.8-1.3) 09/22/20 20:05 Sodium 140 mmol/L (136-145) 09/25/20 04:05 Corrected Sodium TNP 09/25/20 04:05 Potassium 3.4 mmol/L (3.5-5.1) L 09/25/20 04:05 Chloride 105 mmol/L (98-107) 09/25/20 04:05 Carbon Dioxide 22.2 mmol/L (21-32) 09/25/20 04:05 BUN 11 mg/dL (7-18) 09/25/20 04:05 Creatinine 0.74 mg/dL (0.55-1.02) 09/25/20 04:05 Est GFR (MDRD) Af Amer > 60 (>60) 09/25/20 04:05 Est GFR (MDRD) Non-Af > 60 (>60) 09/25/20 04:05 Glucose 91 mg/dL (65-99) 09/25/20 04:05 POC Glucose (mg/dL) 96 mg/dL (65-99) 09/24/20 20:02 Lactic Acid 3.3 mmol/L (0.4-2.0) H 09/25/20 09:09 Calcium 10.0 mg/dL (8.5-10.1) 09/25/20 04:05 Corrected Calcium 11.2 mg/dL (8.5-10.1) H 09/25/20 04:05 Magnesium 2.0 mg/dL (1.7-2.9) 09/24/20 04:00 Total Bilirubin 1.00 mg/dL (0.2-1.0) 09/25/20 04:05 AST 214 Units/L (15-37) H 09/25/20 04:05 ALT 39 Units/L (12-78) 09/25/20 04:05 Alkaline Phosphatase 303 Units/L (46-116) H 09/25/20 04:05 Lactate Dehydrogenase 4395 Units/L (81-234) H 09/22/20 20:05 Creatine Kinase 267 Units/L (26-192) H 09/22/20 20:05 CK-MB (CK-2) 1.3 ng/mL (0-4.0) 09/22/20 20:05 CK/CKMB % Calc 0.5 % (<4) 09/22/20 20:05 Troponin I < 0.02 ng/mL (0-1.5) 09/22/20 20:05 C-Reactive Protein 48.90 mg/L (0-3.0) H 09/22/20 20:05 B-Natriuretic Peptide 91.1 pg/mL (0-79) H 09/22/20 20:05 Total Protein 5.5 g/dL (6.4-8.2) L 09/25/20 04:05 Albumin 2.5 g/dL (3.4-5.0) L 09/25/20 04:05 Globulin 3.0 g/dL (2.5-4.5) 09/25/20 04:05 Albumin/Globulin Ratio 0.8 Ratio (1.1-2.1) L 09/25/20 04:05 Amylase 15 Units/L (25-115) L 09/24/20 04:10 Lipase 193 Units/L (73-393) 09/24/20 04:10 Specimen Type Clean catch urine 09/24/20 11:46 Urine Color Yellow (YELLOW) 09/24/20 11:46 Urine Appearance Slightly hazy (CLEAR) 09/24/20 11:46 Urine pH 6.0 (5.0 - 8.0) 09/24/20 11:46 Ur Specific [place] 1.010 (1.000-1.030) 09/24/20 11:46 Urine Protein 3+ (NEGATIVE) 09/24/20 11:46 Urine Glucose (UA) Negative (NEGATIVE) 09/24/20 11:46 Urine Ketones Negative (NEGATIVE) 09/24/20 11:46 Urine Occult Blood 5+ (NEGATIVE) 09/24/20 11:46 Urine Nitrite Negative (NEGATIVE) 09/24/20 11:46 Urine Bilirubin Negative (NEGATIVE) 09/24/20 11:46 Urine Urobilinogen 1+ (NORMAL) 09/24/20 11:46 Ur Leukocyte Esterase Negative (NEGATIVE) 09/24/20 11:46 Urine RBC 10-20 /HPF (0-3) A 09/24/20 11:46 Urine WBC 5-10 /HPF (0-5) A 09/24/20 11:46 Ur Squamous Epith Cells Rare /HPF (NEGATIVE) 09/24/20 11:46 Urine Bacteria Trace /HPF (NEGATIVE) 09/24/20 11:46 Ur Culture Indicated? Yes/culture set up 09/24/20 11:46 Urine Opiates Screen Negative (NEG=<300) 09/22/20 21:01 Urine Methadone Screen Negative (NEG=<300) 09/22/20 21:01 Ur Barbiturates Screen Negative (NEG=<200) 09/22/20 21:01 Ur Phencyclidine Scrn Negative (NEG=<25) 09/22/20 21:01 Ur Amphetamines Screen Negative (NEG=<1000) 09/22/20 21:01 U Benzodiazepines Scrn Negative (NEG=<200) 09/22/20 21:01 Urine Cocaine Screen Negative (NEG=<300) 09/22/20 21:01 U Marijuana (THC) Screen Negative (NEG=<50) 09/22/20 21:01 SARS-CoV-2 (PCR) Negative (NEGATIVE) 09/23/20 00:08 Influenza Type A (PCR) Negative (NEGATIVE) 09/23/20 00:08 Influenza Type B (PCR) Negative (NEGATIVE) 09/23/20 00:08 RSV (PCR) Negative (NEGATIVE) 09/23/20 00:08 - Plan (1) Acute UTI Status: Acute Plan: NS AT KVO, LEVAQUIN 500MG IV DAILY, FORTAZ 1G IV Q8H, ZOFRAN 4MG IV Q4H PRN NAUSEA, CLINIMIX FOR NUTRITION AT 40 ML/HR. (2) Sepsis Status: Acute Qualifiers: Sepsis type: sepsis due to unspecified organism Sepsis acute organ dysfunction status: unspecified Qualified Code(s): A41.9 - Sepsis, unspecified organism (3) Intractable nausea and vomiting Status: Acute
--- NOTE | 2020-09-25 11:14 | PCM.PROG ---
Progress Note - Progress Note for Day of Date of Exam: 09/25/20 - Subjective Subjective: WAS ADMITTED FOR TREATMENT OF ACUTE UTI, SEPSIS, AND ABDOMINAL PAIN. SHE CONTINUES WITH ABDOMINAL PAIN AND NAUSEA THIS MORNING. SHE HAS HAD AN ELEVATED TEMPERATURE THROUGHOUT THE NIGHT. ON EXAMINATION, HEART IS REGULAR IN RATE AND RHYTHM. BILATERAL LUNGS ARE NOTED WITH DIMINISHED LUNG SOUNDS THROUGHOUT. ABDOMEN IS ROUND, SOFT, AND NOTED WITH DIFFUSE TENDERNESS TO PALPATION. NORMAL BOWEL SOUNDS ARE NOTED IN ALL QUADRANTS. HER VITALS THIS MORNING ARE: 99.1-83-16-94%-183/85. LABS WERE OBTAINED. ABNORMAL LAB VALUES INCLUDE THE FOLLOWING: WBC 31.0, HGB 10.8, HCT 34.3, POTASSIUM 3.4, LACTIC ACID 3.3, AST 214, ALK PHOS 303, TOTAL PROTEIN 5.5, ALBUMIN 2.5. BLOOD CULTURES ARE PENDING. WE OBTAINED AN ABDOMEN/PELVIS CT WITH CONTRAST YESTERDAY. IT REVEALED: 1. Mild nonspecific retroperitoneal stranding around the duodenum for which clinical correlation for duodenitis or pancreatitis is recommended. A small amount of free fluid is seen along the left pericolic gutter and in the pelvis. 2. Gallbladder wall thickening which can be further evaluated ultrasound. There is also 1.9 centimeter hypodense lesion in the right hepatic lobe which can be further evaluated with ultrasound. 3. Indeterminate 2 centimeter right adrenal nodule that does not meet criteria for adenoma. Nonemergent adrenal protocol CT recommended for full characterization. 4. Mild splenomegaly. WE THEN OBTAINED A GALLBLADDER US WHICH REVEALED: 1. Distended gallbladder filled with sludge. There is gallbladder wall thickening, pericholecystic fluid and positive sonographic Agudelo sign concerning for acute cholecystitis. 2. Benign 2.6 centimeter hemangioma in the liver. WE CONSULTED . AFTER REVIEWING SCANS AND CONSULTING WITH PATIENT, HE PLANS FOR A CHOLECYSTECTOMY TODAY. WE ARE IN AGREEMENT WITH PLANS. PATIENT IS MEDICALLY CLEAR FOR SURGERY. SHE IS CURRENTLY RECEIVING NS AT KVO, LEVAQUIN 500MG IV DAILY, FORTAZ 1G IV Q8H, ZOFRAN 4MG IV Q4H PRN NAUSEA, CLINIMIX FOR NUTRITION AT 40 ML/HR. WE WILL CONTINUE WITH CURRENT PLAN OF CARE TODAY. OTHERWISE, WE PLAN TO FOLLOW UP WITH AM LABS AND CONTINUE TO MONITOR. TIME SPENT ON CLINICAL ASSESSMENT, REVIEWING LABS AND IMAGING, DECISION MAKING, AND DOCUMENTATION GREATER THAN 75 MINUTES. - Past Medical Family Social History Past Med/Fam/Surg Hx: No changes since H&P Allergies: Allergies codeine Allergy (Verified 09/22/20 20:50) - Review of Systems ROS: No change since H&P - Vital Signs and I&O's Vital Signs: Temperature 99.1 F Pulse Rate [Left] 83 Pulse Rate 64 Respiratory Rate 16 Blood Pressure [Right Arm] 183/85 Blood Pressure [Left Arm] 158/79 Blood Pressure 135/84 O2 Sat by Pulse Oximetry 94 Intake and Output: Intake & Output 09/22/20 09/23/20 09/24/20 09/25/20 11:59 11:59 11:59 11:59 Intake Total 980 / 980 2800 / 2800 2470 / 2470 Output Total 600 / 600 1225 / 1225 2350 / 2350 Balance 380 / 380 1575 / 1575 120 / 120 - Physical Exam Oriented: Normal Eyes: Normal Ear: Normal Nose: Normal Throat: Normal Respiratory: Generalized, Diminished Cardiovascular: Normal : Normal Auscultation: Bowel Sounds: Normal Palpation: Normal Tenderness: Diffuse Skin: Normal Musculoskeletal: Normal Psychiatric: Normal Mood Description: Calm Affect: Normal Speech Pattern: Appropriate - Laboratory and Diagnostics Result Diagrams: 09/25/20 04:05 09/25/20 04:05 Labs: 09/24/20 11:46 Urine,Clean Catch Urine Culture - Preliminary 09/22/20 20:30 Blood Blood Culture - Preliminary 09/22/20 20:05 Blood Blood Culture - Preliminary Laboratory WBC 31.0 X10^3/uL (3.6-10.0) H* 09/25/20 04:05 RBC 4.24 X10^6/uL (3.5-5.4) 09/25/20 04:05 Hgb 10.8 g/dL (12.0-16.0) L 09/25/20 04:05 Hct 34.3 % (36.0-47.0) L 09/25/20 04:05 MCV 81.0 fL (80.0-100.0) 09/25/20 04:05 MCH 25.4 pg (27.0-34.0) L 09/25/20 04:05 MCHC 31.3 g/dL (33.0-35.0) L 09/25/20 04:05 RDW 19.2 % (11.6-16.5) H 09/25/20 04:05 Plt Count 158 X10^3/uL (150.0-450.0) 09/25/20 04:05 Plt Count Comment Adequate (ADEQUATE) 09/25/20 04:05 MPV 10.0 fL (7.4-11.0) 09/25/20 04:05 Neut % (Auto) 47.4 % (42.0-75.0) 09/25/20 04:05 Lymph % (Auto) 25.2 % (21.0-51.0) 09/25/20 04:05 [place] % (Auto) 25.8 % (0.0-13.0) H 09/25/20 04:05 Eos % (Auto) 0.4 % (0.9-2.9) L 09/25/20 04:05 Baso % (Auto) 1.2 % (0.2-1.0) H 09/25/20 04:05 Neut # (Auto) 14.7 x10^3/uL (2.2-4.8) H 09/25/20 04:05 Lymph # (Auto) 7.8 X10^3/uL (1.3-2.9) H 09/25/20 04:05 [place] # (Auto) 8.0 x10^3/uL (0.3-0.8) H 09/25/20 04:05 Eos # (Auto) 0.1 x10^3/uL (0.0-0.2) 09/25/20 04:05 Baso # (Auto) 0.4 X10^3/uL (0.0-0.1) H 09/25/20 04:05 Absolute Nucleated RBC 6.3 /100WBC 09/25/20 04:05 Total Counted 100 09/25/20 04:05 Neutrophils % (Manual) 68 % (39-76) 09/25/20 04:05 Band Neutrophils % Cancelled 09/24/20 04:00 Lymphocytes % (Manual) 20 % (13-43) 09/25/20 04:05 Monocytes % (Manual) 12 % (4-9) H 09/25/20 04:05 Eosinophils % (Manual) Cancelled 09/24/20 04:00 Basophils % (Manual) Cancelled 09/24/20 04:00 Metamyelocytes % Cancelled 09/24/20 04:00 Myelocytes % Cancelled 09/24/20 04:00 Promyelocytes % Cancelled 09/24/20 04:00 Nucleated RBCs 12 09/25/20 04:05 Atypical Lymphocytes Cancelled 09/24/20 04:00 Blast Cells Cancelled 09/24/20 04:00 Smudge Cells Cancelled 09/24/20 04:00 Toxic Granulation Cancelled 09/24/20 04:00 Dohle Bodies Cancelled 09/24/20 04:00 Isabela Rods Cancelled 09/24/20 04:00 Plt Clumps, EDTA Cancelled 09/24/20 04:00 Giant Platelets Cancelled 09/24/20 04:00 Plt Morphology Comment Normal (NORMAL) 09/25/20 04:05 RBC Morphology Normal (NORMAL) 09/25/20 04:05 Dimorphic RBCs Cancelled 09/24/20 04:00 Polychromasia Cancelled 09/24/20 04:00 Hypochromasia Cancelled 09/24/20 04:00 Poikilocytosis Cancelled 09/24/20 04:00 Basophilic Stippling Cancelled 09/24/20 04:00 Anisocytosis Cancelled 09/24/20 04:00 Microcytosis Cancelled 09/24/20 04:00 Macrocytosis Cancelled 09/24/20 04:00 Spherocytes Cancelled 09/24/20 04:00 Pappenheimer Bodies Cancelled 09/24/20 04:00 Sickle Cells Cancelled 09/24/20 04:00 Target Cells Cancelled 09/24/20 04:00 Tear Drop Cells Cancelled 09/24/20 04:00 Ovalocytes Cancelled 09/24/20 04:00 Stomatocytes Cancelled 09/24/20 04:00 Helmet Cells Cancelled 09/24/20 04:00 Lockhart-[place] Bodies Cancelled 09/24/20 04:00 [place] Rings Cancelled 09/24/20 04:00 [place] Cells Cancelled 09/24/20 04:00 Crenated Cell Cancelled 09/24/20 04:00 Acanthocytes (Spur) Cancelled 09/24/20 04:00 Rouleaux Cancelled 09/24/20 04:00 Schistocytes Cancelled 09/24/20 04:00 ESR 7 MM/HOUR (0-20) 09/22/20 20:05 PT 15.2 SECONDS (11.8-14.3) 09/22/20 20:05 INR Target Range - 09/22/20 20:05 INR 1.24 (0.8-1.3) 09/22/20 20:05 Sodium 140 mmol/L (136-145) 09/25/20 04:05 Corrected Sodium TNP 09/25/20 04:05 Potassium 3.4 mmol/L (3.5-5.1) L 09/25/20 04:05 Chloride 105 mmol/L (98-107) 09/25/20 04:05 Carbon Dioxide 22.2 mmol/L (21-32) 09/25/20 04:05 BUN 11 mg/dL (7-18) 09/25/20 04:05 Creatinine 0.74 mg/dL (0.55-1.02) 09/25/20 04:05 Est GFR (MDRD) Af Amer > 60 (>60) 09/25/20 04:05 Est GFR (MDRD) Non-Af > 60 (>60) 09/25/20 04:05 Glucose 91 mg/dL (65-99) 09/25/20 04:05 POC Glucose (mg/dL) 96 mg/dL (65-99) 09/24/20 20:02 Lactic Acid 3.3 mmol/L (0.4-2.0) H 09/25/20 09:09 Calcium 10.0 mg/dL (8.5-10.1) 09/25/20 04:05 Corrected Calcium 11.2 mg/dL (8.5-10.1) H 09/25/20 04:05 Magnesium 2.0 mg/dL (1.7-2.9) 09/24/20 04:00 Total Bilirubin 1.00 mg/dL (0.2-1.0) 09/25/20 04:05 AST 214 Units/L (15-37) H 09/25/20 04:05 ALT 39 Units/L (12-78) 09/25/20 04:05 Alkaline Phosphatase 303 Units/L (46-116) H 09/25/20 04:05 Lactate Dehydrogenase 4395 Units/L (81-234) H 09/22/20 20:05 Creatine Kinase 267 Units/L (26-192) H 09/22/20 20:05 CK-MB (CK-2) 1.3 ng/mL (0-4.0) 09/22/20 20:05 CK/CKMB % Calc 0.5 % (<4) 09/22/20 20:05 Troponin I < 0.02 ng/mL (0-1.5) 09/22/20 20:05 C-Reactive Protein 48.90 mg/L (0-3.0) H 09/22/20 20:05 B-Natriuretic Peptide 91.1 pg/mL (0-79) H 09/22/20 20:05 Total Protein 5.5 g/dL (6.4-8.2) L 09/25/20 04:05 Albumin 2.5 g/dL (3.4-5.0) L 09/25/20 04:05 Globulin 3.0 g/dL (2.5-4.5) 09/25/20 04:05 Albumin/Globulin Ratio 0.8 Ratio (1.1-2.1) L 09/25/20 04:05 Amylase 15 Units/L (25-115) L 09/24/20 04:10 Lipase 193 Units/L (73-393) 09/24/20 04:10 Specimen Type Clean catch urine 09/24/20 11:46 Urine Color Yellow (YELLOW) 09/24/20 11:46 Urine Appearance Slightly hazy (CLEAR) 09/24/20 11:46 Urine pH 6.0 (5.0 - 8.0) 09/24/20 11:46 Ur Specific [place] 1.010 (1.000-1.030) 09/24/20 11:46 Urine Protein 3+ (NEGATIVE) 09/24/20 11:46 Urine Glucose (UA) Negative (NEGATIVE) 09/24/20 11:46 Urine Ketones Negative (NEGATIVE) 09/24/20 11:46 Urine Occult Blood 5+ (NEGATIVE) 09/24/20 11:46 Urine Nitrite Negative (NEGATIVE) 09/24/20 11:46 Urine Bilirubin Negative (NEGATIVE) 09/24/20 11:46 Urine Urobilinogen 1+ (NORMAL) 09/24/20 11:46 Ur Leukocyte Esterase Negative (NEGATIVE) 09/24/20 11:46 Urine RBC 10-20 /HPF (0-3) A 09/24/20 11:46 Urine WBC 5-10 /HPF (0-5) A 09/24/20 11:46 Ur Squamous Epith Cells Rare /HPF (NEGATIVE) 09/24/20 11:46 Urine Bacteria Trace /HPF (NEGATIVE) 09/24/20 11:46 Ur Culture Indicated? Yes/culture set up 09/24/20 11:46 Urine Opiates Screen Negative (NEG=<300) 09/22/20 21:01 Urine Methadone Screen Negative (NEG=<300) 09/22/20 21:01 Ur Barbiturates Screen Negative (NEG=<200) 09/22/20 21:01 Ur Phencyclidine Scrn Negative (NEG=<25) 09/22/20 21:01 Ur Amphetamines Screen Negative (NEG=<1000) 09/22/20 21:01 U Benzodiazepines Scrn Negative (NEG=<200) 09/22/20 21:01 Urine Cocaine Screen Negative (NEG=<300) 09/22/20 21:01 U Marijuana (THC) Screen Negative (NEG=<50) 09/22/20 21:01 SARS-CoV-2 (PCR) Negative (NEGATIVE) 09/23/20 00:08 Influenza Type A (PCR) Negative (NEGATIVE) 09/23/20 00:08 Influenza Type B (PCR) Negative (NEGATIVE) 09/23/20 00:08 RSV (PCR) Negative (NEGATIVE) 09/23/20 00:08 - Plan (1) Acute cholecystitis Status: Acute Plan: NS AT KVO, LEVAQUIN 500MG IV DAILY, FORTAZ 1G IV Q8H, ZOFRAN 4MG IV Q4H PRN NAUSEA, CLINIMIX FOR NUTRITION AT 40 ML/HR. (2) Acute UTI Status: Acute (3) Sepsis Status: Acute Qualifiers: Sepsis type: sepsis due to unspecified organism Sepsis acute organ dysfunction status: unspecified Qualified Code(s): A41.9 - Sepsis, unspecified organism (4) Intractable nausea and vomiting Status: Acute
[2020-09-25] MEDS ORDERED: NS 1000 ML 1,000 ML ONE ×3 (12:38→20:38)
[2020-09-25] MEDS ORDERED: BACTROBAN TOPICAL OINT ONE (12:57)
[2020-09-25] MEDS ORDERED: FENTANYL INJ 250 mcg ONE (13:03)
[2020-09-25] MEDS ORDERED: PHENERGAN INJ 25 MG IM PRN (13:09)
[2020-09-25] MEDS ORDERED: REGLAN INJ 10 MG VIAL IVP PRN (13:09)
[2020-09-25] MEDS ORDERED: ZOFRAN INJ 4 MG VIAL IVP PRN (13:09)
[2020-09-25] MEDS ORDERED: BENADRYL INJ 50 MG VIAL IVP PRN (13:09)
[2020-09-25] MEDS ORDERED: DIPRIVAN VIAL ONE (13:40)
[2020-09-25] MEDS ORDERED: QUELICIN (OR ANECTINE) ONE ×2 (13:40→17:43)
[2020-09-25] MEDS ORDERED: SUPRANE ONE ×2 (13:40→18:35)
[2020-09-25] MEDS ORDERED: BREVIBLOC ONE (13:40)
[2020-09-25] MEDS ORDERED: VERSED ONE (13:40)
[2020-09-25] MEDS ORDERED: ZOFRAN INJ 4 MG VIAL ONE (13:40)
[2020-09-25] MEDS ORDERED: NORCURON INJ 10 MG VIAL ONE ×2 (13:40→18:35)
[2020-09-25] MEDS ORDERED: FENTANYL INJ 100 mcg ONE ×2 (14:29→17:45)
[2020-09-25] MEDS ORDERED: LR 1000 ML IV 1,000 ML IV ONE (15:33)
[2020-09-25] MEDS ORDERED: DILAUDID INJ ONE (16:04)
[2020-09-25] MEDS: DILAUDID INJ IVP PRN ×2 (16:06→16:16)
[2020-09-25 16:29] LABS: HEMATOCRIT 30.9 % (36.0-47.0); MEAN CORPUSCULAR VOLUME 84.2 fL (80.0-100.0); MONOCYTES # (AUTO) 17.5 x10^3/uL (0.3-0.8); RED BLOOD COUNT 3.67 X10^6/uL (3.5-5.4)
[2020-09-25 16:37] LABS: BASOPHILS # (AUTO) 1.5 X10^3/uL (0.0-0.1); BASOPHILS % (AUTO) 2.5 % (0.2-1.0); EOSINOPHILS # (AUTO) 0.3 x10^3/uL (0.0-0.2); EOSINOPHILS % (AUTO) 0.5 % (0.9-2.9); HEMOGLOBIN 9.4 g/dL (12.0-16.0); LYMPHOCYTES # (AUTO) 21.7 X10^3/uL (1.3-2.9); LYMPHOCYTES % (AUTO) 36.4 % (21.0-51.0); MEAN CORPUSCULAR HEMOGLOBIN 25.6 pg (27.0-34.0); MEAN CORPUSCULAR HGB CONC 30.4 g/dL (33.0-35.0); MEAN PLATELET VOLUME 9.7 fL (7.4-11.0); MONOCYTES % (AUTO) 29.3 % (0.0-13.0); NEUTROPHILS # (AUTO) 18.7 x10^3/uL (2.2-4.8); NEUTROPHILS % (AUTO) 31.3 % (42.0-75.0); PLATELET COUNT 189 X10^3/uL (150.0-450.0); RED CELL DISTRIBUTION WIDTH 19.8 % (11.6-16.5)
[2020-09-25 16:40] LABS: ALBUMIN 2.2 g/dL (3.4-5.0); CALCIUM 9.9 mg/dL (8.5-10.1); CARBON DIOXIDE 15.4 mmol/L (21-32); COR CA(FOR HYPOALB) 11.3 mg/dL (8.5-10.1); CREATININE 1.17 mg/dL (0.55-1.02); TOTAL PROTEIN 5.1 g/dL (6.4-8.2)
[2020-09-25] MEDS ORDERED: NS 1000 ML 1,000 ML IV ONE ×2 (17:10→17:50)
[2020-09-25] MEDS: DOPAMINE IV PREMIX 400 MG/250 ML 400 MG/250 ML BAG IV PRN (17:34)
[2020-09-25 17:35] LABS: ABG BASE EXCESS -18.4 mmol/L (-2.0-2.0)
[2020-09-25 17:36] LABS: ABG HCO3 8.6 mmol/L (22-26)
[2020-09-25] MEDS: SODIUM BICARBONATE 8.4% INJ ADULT IVP ONE ×2 (17:36→18:39)
[2020-09-25] MEDS ORDERED: VERSED IV PREMIX 100 MG/100 ML IV.SOLN IV ONE (17:45)
[2020-09-25] MEDS ORDERED: QUELICIN (OR ANECTINE) IVP ONE (17:48)
[2020-09-25] MEDS ORDERED: FENTANYL INJ 250 mcg IVP ONE (17:48)
[2020-09-25] MEDS: VERSED IV PREMIX 100 MG/100 ML IV.SOLN IV PRN (17:54)
[2020-09-25 18:02] LABS: HEMATOCRIT 29.5 % (36.0-47.0); HEMOGLOBIN 8.8 g/dL (12.0-16.0)
[2020-09-25 18:05] LABS: WHITE BLOOD COUNT 59.6 X10^3/uL (3.6-10.0)
[2020-09-25 18:17] LABS: CKMB % 0.4 % (<4); CREATINE KINASE 794 Units/L (26-192); CREATINE KINASE MB 3.2 ng/mL (0-4.0); TROPONIN I < 0.02 ng/mL (0-1.5)
[2020-09-25 18:18] LABS: ABG BASE EXCESS -15.4 mmol/L (-2.0-2.0)
[2020-09-25 18:20] LABS: BAND NEUTROPHILS % 5 % (0-10)
[2020-09-25 18:21] LABS: METAMYELOCYTES % 1; MYELOCYTES % 4
--- NOTE | 2020-09-25 18:23 | RAD ---
HISTORYET TUBE PLACEMENTSTUDYCHEST, 1 VIEWCOMPARISONJanuary 2020FINDINGSSUPPORT DEVICES: Endotracheal tube projects 2.7 cm from the leandra.LUNGS/PLEURA: Reduced lung volumes. No pulmonary edema or focal consolidation. No pleural effusion or space occupying pneumothorax.HEART AND MEDIASTINUM: The cardiac and mediastinum contours appear normal.BONES AND SOFT TISSUES: No acute abnormality.IMPRESSION1. No acute cardiopulmonary abnormality.Electronically signed by: Buster Powell (Sep 25, 2020 18:21:37)
[2020-09-25] MEDS ORDERED: SODIUM BICARBONATE 8.4% INJ ADULT IVP ONE (18:33)
[2020-09-25] MEDS ORDERED: NEO-SYNEPHRINE INJ ONE (18:35)
[2020-09-25 18:46] LABS: ANISOCYTOSIS 1+; PLATELET MORPHOLOGY COMMENT NORMAL (NORMAL)
[2020-09-25] MEDS ORDERED: POLYMYXIN B SULFATE ONE (18:51)
--- NOTE | 2020-09-25 21:50 | RAD ---
EXAM: CHEST X-RAYHISTORY: Evaluation for central line positioning status post line placement.TECHNIQUE: AP chest x-ray dated 09/25/2020 at 8:57 PM.COMPARISON: CXR dated 09/25/2020 at 5:53 PM.FINDINGS:There is interval appearance of a right internal jugular central venous catheter with distal tip in the distal right atrium. Recommend partial withdrawal approximately 5 [address] the tip at the optimal proximal cavoatrial junction and mitigate risk of inducing cardiac ectopy. Recommend careful clinical correlation to ensure venous blood return.ET tube in situ with distal tip approximately 3 cm above the leandra (adequate position). The heart size and mediastinum are within normal limits. The lung lin and costophrenic angles are clear. There is no acute parenchymal infiltrate, pleural effusion, or pneumothorax seen. The visualized bony structures are within normal limits.IMPRESSION:1. Interval appearance of a right internal jugular central venous catheter with distal tip in the distal right atrium. Recommend partial withdrawal approximately 5 [address] the tip at the optimal proximal cavoatrial junction and mitigate risk of inducing cardiac ectopy. Recommend careful clinical correlation to ensure venous blood return.2. No evidence for acute cardiopulmonary disease seen.Electronically signed by: Samir Roberts (Sep 25, 2020 21:48:31)
[2020-09-25] MEDS ORDERED: FORTAZ or TAZICEF VIAL INJ ONE (21:55)
[2020-09-25] MEDS ORDERED: NS 100 ML IV + SPIKE MINIBAG* 100 ML IV ONE (21:56)
[2020-09-25] MEDS ORDERED: OFIRMEV IV 1000 MG VIAL 1,000 MG/100 ML VIAL IV ONE (22:58)
[2020-09-25] MEDS: OFIRMEV IV 1000 MG VIAL 1,000 MG/100 ML VIAL IV PRN (23:08)
[2020-09-25 23:28] LABS: HEMATOCRIT 33.6 % (36.0-47.0); HEMOGLOBIN 10.3 g/dL (12.0-16.0)
[2020-09-26 00:55] LABS: CKMB % 0.6 % (<4); CREATINE KINASE MB 2.9 ng/mL (0-4.0); TROPONIN I 0.09 ng/mL (0-1.5)
--- NOTE | 2020-09-26 02:58 | DR.PROGNOT ---
Hospital Progress Notes - Progress Note for Day of: Progress Note Date: 09/26/20 - Chief Complaint Chief Complaint: post op exploratory laparotomy , evacuationt of blood clots and drainage . no bleeding was found . Pt is on respirator . still in septic shock ..BP is supported with Dopamine and IVF - Past Medical Family Social History Past Med/Fam/Surg Hx: No changes since H&P Allergies: Allergies codeine Allergy (Verified 09/22/20 20:50) - Review Of Systems ROS: No change since H&P - Vital Signs Vital Signs: Temperature 100.8 F Pulse Rate [Left] 145 Pulse Rate 144 Respiratory Rate 26 Blood Pressure [Right Arm] 115/58 Blood Pressure [Left Arm] 158/79 Blood Pressure 110/73 O2 Sat by Pulse Oximetry 100 - Physical Exam Eyes: Normal Ear: Normal Nose: Normal Throat: Normal Respiratory: OTHER (on respirator) Cardiovascular: Normal : Normal GI:Auscultation: Decreased (soft abdomen ) GI:Palpation: Normal GI: Tenderness: Diffuse Skin: Normal Musculoskeletal: Normal Psychiatric: Normal Mood Description: Calm Affect: Normal Speech Pattern: Appropriate - Laboratory and Diagnostics Result Diagrams: 09/25/20 23:10 09/25/20 16:22 Labs: 09/24/20 11:46 Urine,Clean Catch Urine Culture - Preliminary 09/22/20 20:30 Blood Blood Culture - Preliminary 09/22/20 20:05 Blood Blood Culture - Preliminary Laboratory WBC 59.6 X10^3/uL (3.6-10.0) H* D 09/25/20 16:22 RBC 3.67 X10^6/uL (3.5-5.4) 09/25/20 16:22 Hgb 10.3 g/dL (12.0-16.0) L 09/25/20 23:10 Hct 33.6 % (36.0-47.0) L 09/25/20 23:10 MCV 84.2 fL (80.0-100.0) 09/25/20 16:22 MCH 25.6 pg (27.0-34.0) L 09/25/20 16:22 MCHC 30.4 g/dL (33.0-35.0) L 09/25/20 16:22 RDW 19.8 % (11.6-16.5) H 09/25/20 16:22 Plt Count 189 X10^3/uL (150.0-450.0) 09/25/20 16:22 Plt Count Comment Adequate (ADEQUATE) 09/25/20 16:22 MPV 9.7 fL (7.4-11.0) 09/25/20 16:22 Neut % (Auto) 31.3 % (42.0-75.0) L 09/25/20 16:22 Lymph % (Auto) 36.4 % (21.0-51.0) 09/25/20 16:22 [place] % (Auto) 29.3 % (0.0-13.0) H 09/25/20 16:22 Eos % (Auto) 0.5 % (0.9-2.9) L 09/25/20 16:22 Baso % (Auto) 2.5 % (0.2-1.0) H 09/25/20 16:22 Neut # (Auto) 18.7 x10^3/uL (2.2-4.8) H 09/25/20 16:22 Lymph # (Auto) 21.7 X10^3/uL (1.3-2.9) H 09/25/20 16:22 [place] # (Auto) 17.5 x10^3/uL (0.3-0.8) H 09/25/20 16:22 Eos # (Auto) 0.3 x10^3/uL (0.0-0.2) H 09/25/20 16:22 Baso # (Auto) 1.5 X10^3/uL (0.0-0.1) H 09/25/20 16:22 Absolute Nucleated RBC 3.3 /100WBC 09/25/20 16:22 Total Counted 100 09/25/20 16:22 Neutrophils % (Manual) 26 % (39-76) L 09/25/20 16:22 Band Neutrophils % 5 % (0-10) 09/25/20 16:22 Lymphocytes % (Manual) 55 % (13-43) H 09/25/20 16:22 Monocytes % (Manual) 6 % (4-9) 09/25/20 16:22 Eosinophils % (Manual) 3 % (0-6) 09/25/20 16:22 Basophils % (Manual) Cancelled 09/24/20 04:00 Metamyelocytes % 1 09/25/20 16:22 Myelocytes % 4 09/25/20 16:22 Promyelocytes % Cancelled 09/24/20 04:00 Nucleated RBCs 11 09/25/20 16:22 Atypical Lymphocytes Cancelled 09/24/20 04:00 Blast Cells Cancelled 09/24/20 04:00 Smudge Cells Cancelled 09/24/20 04:00 Toxic Granulation Cancelled 09/24/20 04:00 Dohle Bodies Cancelled 09/24/20 04:00 Isabela Rods Cancelled 09/24/20 04:00 Plt Clumps, EDTA Cancelled 09/24/20 04:00 Giant Platelets Cancelled 09/24/20 04:00 Plt Morphology Comment Normal (NORMAL) 09/25/20 16:22 RBC Morphology Abnormal (NORMAL) A 09/25/20 16:22 Dimorphic RBCs Cancelled 09/24/20 04:00 Polychromasia Cancelled 09/24/20 04:00 Hypochromasia Cancelled 09/24/20 04:00 Poikilocytosis Cancelled 09/24/20 04:00 Basophilic Stippling Cancelled 09/24/20 04:00 Anisocytosis 1+ A 09/25/20 16:22 Microcytosis Cancelled 09/24/20 04:00 Macrocytosis Cancelled 09/24/20 04:00 Spherocytes Cancelled 09/24/20 04:00 Pappenheimer Bodies Cancelled 09/24/20 04:00 Sickle Cells Cancelled 09/24/20 04:00 Target Cells Cancelled 09/24/20 04:00 Tear Drop Cells Cancelled 09/24/20 04:00 Ovalocytes Cancelled 09/24/20 04:00 Stomatocytes Cancelled 09/24/20 04:00 Helmet Cells Cancelled 09/24/20 04:00 Lockhart-Cliff Bodies Cancelled 09/24/20 04:00 [place] Rings Cancelled 09/24/20 04:00 Wiliam Cells Cancelled 09/24/20 04:00 Crenated Cell Cancelled 09/24/20 04:00 Acanthocytes (Spur) Cancelled 09/24/20 04:00 Rouleaux Cancelled 09/24/20 04:00 Schistocytes Cancelled 09/24/20 04:00 ESR 7 MM/HOUR (0-20) 09/22/20 20:05 PT 18.4 SECONDS (11.8-14.3) 09/25/20 16:22 INR Target Range - 09/25/20 16:22 INR 1.58 (0.8-1.3) H 09/25/20 16:22 APTT 39.5 SECONDS (22.9-36.5) H 09/25/20 16:22 PTT Comment - 09/25/20 16:22 Sample Site Lbra 09/25/20 18:11 ABG pH 7.170 (7.35-7.45) L* 09/25/20 18:11 ABG pCO2 33.0 mmHg (35.0-45.0) L 09/25/20 18:11 ABG pO2 91.0 mmHg (80.0-100.0) 09/25/20 18:11 ABG HCO3 12.0 mmol/L (22-26) L* 09/25/20 18:11 ABG O2 Saturation 94.0 % (90-100) 09/25/20 18:11 ABG Base Excess -15.4 mmol/L (-2.0-2.0) L 09/25/20 18:11 Isreal Test N/a 09/25/20 18:11 A-a Gradient 296.0 mmHg 09/25/20 18:11 FiO2 60.0 09/25/20 18:11 Blood Gas Comments Pt juventino well elj cdn 09/25/20 18:11 Sodium 141 mmol/L (136-145) 09/25/20 16:22 Corrected Sodium 142 mmol/L (136-145) 09/25/20 16:22 Potassium 4.4 mmol/L (3.5-5.1) 09/25/20 16:22 Chloride 107 mmol/L (98-107) 09/25/20 16:22 Carbon Dioxide 15.4 mmol/L (21-32) L 09/25/20 16:22 BUN 13 mg/dL (7-18) 09/25/20 16:22 Creatinine 1.17 mg/dL (0.55-1.02) H 09/25/20 16:22 Est GFR (MDRD) Af Amer 59 (>60) 09/25/20 16:22 Est GFR (MDRD) Non-Af 49 (>60) L 09/25/20 16:22 Glucose 154 mg/dL (65-99) H 09/25/20 16:22 POC Glucose (mg/dL) 111 mg/dL (65-99) H 09/25/20 21:45 Lactic Acid 3.3 mmol/L (0.4-2.0) H 09/25/20 09:09 Calcium 9.9 mg/dL (8.5-10.1) 09/25/20 16:22 Corrected Calcium 11.3 mg/dL (8.5-10.1) H 09/25/20 16:22 Magnesium 2.0 mg/dL (1.7-2.9) 09/24/20 04:00 Total Bilirubin 0.80 mg/dL (0.2-1.0) 09/25/20 16:22 AST 252 Units/L (15-37) H 09/25/20 16:22 ALT 35 Units/L (12-78) 09/25/20 16:22 Alkaline Phosphatase 302 Units/L (46-116) H 09/25/20 16:22 Lactate Dehydrogenase 4395 Units/L (81-234) H 09/22/20 20:05 Creatine Kinase 525 Units/L (26-192) H 09/26/20 00:23 CK-MB (CK-2) 2.9 ng/mL (0-4.0) 09/26/20 00:23 CK/CKMB % Calc 0.6 % (<4) 09/26/20 00:23 Troponin I 0.09 ng/mL (0-1.5) 09/26/20 00:23 C-Reactive Protein 48.90 mg/L (0-3.0) H 09/22/20 20:05 B-Natriuretic Peptide 91.1 pg/mL (0-79) H 09/22/20 20:05 Total Protein 5.1 g/dL (6.4-8.2) L 09/25/20 16:22 Albumin 2.2 g/dL (3.4-5.0) L 09/25/20 16:22 Globulin 2.9 g/dL (2.5-4.5) 09/25/20 16:22 Albumin/Globulin Ratio 0.8 Ratio (1.1-2.1) L 09/25/20 16:22 Amylase 15 Units/L (25-115) L 09/24/20 04:10 Lipase 193 Units/L (73-393) 09/24/20 04:10 Specimen Type Clean catch urine 09/24/20 11:46 Urine Color Yellow (YELLOW) 09/24/20 11:46 Urine Appearance Slightly hazy (CLEAR) 09/24/20 11:46 Urine pH 6.0 (5.0 - 8.0) 09/24/20 11:46 Ur Specific [place] 1.010 (1.000-1.030) 09/24/20 11:46 Urine Protein 3+ (NEGATIVE) 09/24/20 11:46 Urine Glucose (UA) Negative (NEGATIVE) 09/24/20 11:46 Urine Ketones Negative (NEGATIVE) 09/24/20 11:46 Urine Occult Blood 5+ (NEGATIVE) 09/24/20 11:46 Urine Nitrite Negative (NEGATIVE) 09/24/20 11:46 Urine Bilirubin Negative (NEGATIVE) 09/24/20 11:46 Urine Urobilinogen 1+ (NORMAL) 09/24/20 11:46 Ur Leukocyte Esterase Negative (NEGATIVE) 09/24/20 11:46 Urine RBC 10-20 /HPF (0-3) A 09/24/20 11:46 Urine WBC 5-10 /HPF (0-5) A 09/24/20 11:46 Ur Squamous Epith Cells Rare /HPF (NEGATIVE) 09/24/20 11:46 Urine Bacteria Trace /HPF (NEGATIVE) 09/24/20 11:46 Ur Culture Indicated? Yes/culture set up 09/24/20 11:46 Urine Opiates Screen Negative (NEG=<300) 09/22/20 21:01 Urine Methadone Screen Negative (NEG=<300) 09/22/20 21:01 Ur Barbiturates Screen Negative (NEG=<200) 09/22/20 21:01 Ur Phencyclidine Scrn Negative (NEG=<25) 09/22/20 21:01 Ur Amphetamines Screen Negative (NEG=<1000) 09/22/20 21:01 U Benzodiazepines Scrn Negative (NEG=<200) 09/22/20 21:01 Urine Cocaine Screen Negative (NEG=<300) 09/22/20 21:01 U Marijuana (THC) Screen Negative (NEG=<50) 09/22/20 21:01 SARS-CoV-2 (PCR) Negative (NEGATIVE) 09/23/20 00:08 Influenza Type A (PCR) Negative (NEGATIVE) 09/23/20 00:08 Influenza Type B (PCR) Negative (NEGATIVE) 09/23/20 00:08 RSV (PCR) Negative (NEGATIVE) 09/23/20 00:08 Tissue Pathology To follow 09/25/20 15:24 Blood Type A POSITIVE 09/25/20 17:30 Antibody Screen Negative 09/25/20 17:30 Crossmatch See Detail 09/25/20 17:30 - Assessment and Plan 1: Post op laparoscopic chelecystectomy then exploratory lap for hypotention .. no active bleeding was found . Pt is in septic shock secodary to gangrenous cholecystitis and UTI . same PO care . Pt is in critical condition because of the above factors.. - Problem Patient Problems: Patient Problems Sepsis (Acute) A41.9 Acute UTI (Acute) N39.0 Intractable nausea and vomiting (Acute) R11.2 Acute cholecystitis (Acute) K81.0
[2020-09-26] MEDS ORDERED: NS 1000 ML 1,000 ML ONE ×2 (03:10→12:59)
[2020-09-26] MEDS ORDERED: VERSED IV PREMIX 100 MG/100 ML IV.SOLN IV ONE ×2 (03:47→15:41)
[2020-09-26] MEDS: NS 1000 ML 1,000 ML IV SCH ×4 (04:00→21:56)
[2020-09-26 04:27] LABS: ABG BASE EXCESS -3.5 mmol/L (-2.0-2.0); ABG HCO3 20.3 mmol/L (22-26)
[2020-09-26 04:28] LABS: ABG ALLEN TEST POS
[2020-09-26] MEDS: VERSED IV PREMIX 100 MG/100 ML IV.SOLN IV PRN ×2 (04:47→15:47)
[2020-09-26] MEDS ORDERED: NS 100 ML IV + SPIKE MINIBAG* 100 ML IV ONE ×3 (05:00→19:45)
[2020-09-26] MEDS ORDERED: FORTAZ or TAZICEF VIAL INJ ONE ×3 (05:00→19:45)
[2020-09-26] MEDS: FORTAZ or TAZICEF VIAL INJ 1 G in NS 100 ML IV + SPIKE MINIBAG* 100 ML IV SCH ×3 (05:27→21:55)
[2020-09-26 06:53] LABS: BASOPHILS # (AUTO) 0.1 X10^3/uL (0.0-0.1); BASOPHILS % (AUTO) 0.6 % (0.2-1.0); EOSINOPHILS # (AUTO) 0.1 x10^3/uL (0.0-0.2); EOSINOPHILS % (AUTO) 0.2 % (0.9-2.9); HEMATOCRIT 30.7 % (36.0-47.0); HEMOGLOBIN 9.6 g/dL (12.0-16.0); LYMPHOCYTES # (AUTO) 4.3 X10^3/uL (1.3-2.9); LYMPHOCYTES % (AUTO) 17.8 % (21.0-51.0); MEAN CORPUSCULAR HEMOGLOBIN 26.5 pg (27.0-34.0); MEAN CORPUSCULAR HGB CONC 31.4 g/dL (33.0-35.0); MEAN CORPUSCULAR VOLUME 84.4 fL (80.0-100.0); MEAN PLATELET VOLUME 10.7 fL (7.4-11.0); MONOCYTES # (AUTO) 3.8 x10^3/uL (0.3-0.8); MONOCYTES % (AUTO) 15.7 % (0.0-13.0); NEUTROPHILS # (AUTO) 15.9 x10^3/uL (2.2-4.8); NEUTROPHILS % (AUTO) 65.7 % (42.0-75.0); PLATELET COUNT 140 X10^3/uL (150.0-450.0); RED BLOOD COUNT 3.64 X10^6/uL (3.5-5.4); WHITE BLOOD COUNT 24.2 X10^3/uL (3.6-10.0)
[2020-09-26 07:12] LABS: ALBUMIN 1.9 g/dL (3.4-5.0); CALCIUM 8.7 mg/dL (8.5-10.1); CARBON DIOXIDE 19.3 mmol/L (21-32); COR CA(FOR HYPOALB) 10.4 mg/dL (8.5-10.1); CREATININE 1.32 mg/dL (0.55-1.02); TOTAL PROTEIN 4.5 g/dL (6.4-8.2)
[2020-09-26 07:22] LABS: ANISOCYTOSIS SLIGHT; BAND NEUTROPHILS % 11 % (0-10); METAMYELOCYTES % 2; PLATELET MORPHOLOGY COMMENT ABNORMAL (NORMAL)
--- NOTE | 2020-09-26 07:45 | RAD ---
HISTORYVENTILATOR DEPENDENTSTUDYCHEST, 1 VIEWCOMPARISONPortable chest September 25, 2020FINDINGSThe trachea is midline. ET tube is in place in good position right internal jugular line is in place tip in the right atrium. The cardiac silhouette is unremarkable . The lungs are clear without focal infiltrate or effusion. Mild atelectasis is seen in the left lower lobe retrocardiac region unchanged from September 25. The bony thorax is unremarkable.IMPRESSIONNo acute cardiopulmonary abnormalities other than mild airspace disease probably atelectasis in the left lower lobe retrocardiac region..ET tube and right internal jugular line are in good positionElectronically signed by: CHAN MARTINEZ (Sep 26, 2020 07:43:04)
[2020-09-26] MEDS ORDERED: DOPAMINE IV PREMIX 400 MG/250 ML 400 MG/250 ML BAG IV ONE (07:56)
[2020-09-26] MEDS: DOPAMINE IV PREMIX 400 MG/250 ML 400 MG/250 ML BAG IV PRN (08:01)
[2020-09-26] MEDS: CLINIMIX IV SCH ×4 (08:13)
[2020-09-26] MEDS: [UNRECOGNIZED DRUG - OTHER] IV SCH ×4 (08:13)
[2020-09-26] MEDS: TRACE ELEMENTS IV SCH ×4 (08:13)
[2020-09-26] MEDS ORDERED: LEVAQUIN PREMIX IV 500 MG 500 MG/100 ML BAG IV ONE (09:14)
[2020-09-26] MEDS: LEVAQUIN PREMIX IV 500 MG 500 MG/100 ML BAG IV SCH (09:22)
[2020-09-26 09:34] LABS: LACTIC ACID 1.7 mmol/L (0.4-2.0)
[2020-09-26 09:35] LABS: CKMB % 0.8 % (<4); CREATINE KINASE MB 2.5 ng/mL (0-4.0); TROPONIN I 0.13 ng/mL (0-1.5)
[2020-09-26] MEDS: ALBUMIN HUMAN 25%- 100 ML 100 ML IV SCH (10:05)
[2020-09-26 18:34] LABS: ABG BASE EXCESS 0.2 mmol/L (-2.0-2.0); ABG HCO3 23.5 mmol/L (22-26)
[2020-09-27] MEDS ORDERED: LOPRESSOR INJ 5 MG AMP ONE ×3 (01:06→06:29)
[2020-09-27] MEDS: LOPRESSOR INJ 5 MG AMP IVP PRN ×3 (01:10→07:10)
[2020-09-27] MEDS ORDERED: NS 1000 ML 1,000 ML ONE (01:15)
[2020-09-27] MEDS: NS 1000 ML 1,000 ML IV SCH ×2 (01:30→10:34)
[2020-09-27] MEDS ORDERED: NS 100 ML IV + SPIKE MINIBAG* 100 ML IV ONE ×2 (04:45→13:32)
[2020-09-27] MEDS ORDERED: FORTAZ or TAZICEF VIAL INJ ONE ×2 (04:45→13:32)
[2020-09-27 05:02] LABS: ABG BASE EXCESS 1.4 mmol/L (-2.0-2.0); ABG HCO3 24.7 mmol/L (22-26)
[2020-09-27 05:03] LABS: ABG ALLEN TEST POSS
[2020-09-27] MEDS: FORTAZ or TAZICEF VIAL INJ 1 G in NS 100 ML IV + SPIKE MINIBAG* 100 ML IV SCH ×3 (05:16→21:38)
[2020-09-27 05:44] LABS: PREALBUMIN 8.7 mg/dL (18-35.7)
[2020-09-27 05:47] LABS: BASOPHILS # (AUTO) 0.1 X10^3/uL (0.0-0.1); BASOPHILS % (AUTO) 0.8 % (0.2-1.0); EOSINOPHILS # (AUTO) 0.1 x10^3/uL (0.0-0.2); EOSINOPHILS % (AUTO) 0.5 % (0.9-2.9); HEMATOCRIT 26.4 % (36.0-47.0); HEMOGLOBIN 8.6 g/dL (12.0-16.0); LYMPHOCYTES # (AUTO) 3.3 X10^3/uL (1.3-2.9); LYMPHOCYTES % (AUTO) 19.5 % (21.0-51.0); MEAN CORPUSCULAR HEMOGLOBIN 27.1 pg (27.0-34.0); MEAN CORPUSCULAR HGB CONC 32.5 g/dL (33.0-35.0); MEAN CORPUSCULAR VOLUME 83.4 fL (80.0-100.0); MEAN PLATELET VOLUME 10.2 fL (7.4-11.0); MONOCYTES # (AUTO) 2.3 x10^3/uL (0.3-0.8); MONOCYTES % (AUTO) 13.5 % (0.0-13.0); NEUTROPHILS # (AUTO) 11.3 x10^3/uL (2.2-4.8); NEUTROPHILS % (AUTO) 65.7 % (42.0-75.0); PLATELET COUNT 112 X10^3/uL (150.0-450.0); RED BLOOD COUNT 3.16 X10^6/uL (3.5-5.4); RED CELL DISTRIBUTION WIDTH 20.5 % (11.6-16.5); WHITE BLOOD COUNT 17.1 X10^3/uL (3.6-10.0)
[2020-09-27 05:50] LABS: ALANINE AMINOTRANSFERASE 65 Units/L (12-78); ALBUMIN 2.3 g/dL (3.4-5.0); ALKALINE PHOSPHATASE 205 Units/L (46-116); ASPARTATE AMINO TRANSFERASE 290 Units/L (15-37); BLOOD UREA NITROGEN 26 mg/dL (7-18); CALCIUM 9.4 mg/dL (8.5-10.1); CHLORIDE 113 mmol/L (98-107); COR CA(FOR HYPOALB) 10.8 mg/dL (8.5-10.1); COR NA(FOR HYPERGLY) 148 mmol/L (136-145); CREATININE 0.98 mg/dL (0.55-1.02); MAGNESIUM 1.8 mg/dL (1.7-2.9); SODIUM 146 mmol/L (136-145); TOTAL PROTEIN 4.9 g/dL (6.4-8.2); eGFR NON BLACK RACES 60 (>60)
[2020-09-27 07:43] LABS: ANISOCYTOSIS 1+; PLATELET MORPHOLOGY COMMENT NORMAL (NORMAL)
[2020-09-27] MEDS ORDERED: LEVAQUIN PREMIX IV 500 MG 500 MG/100 ML BAG IV ONE (09:06)
[2020-09-27] MEDS: ALBUMIN HUMAN 25%- 100 ML 100 ML IV SCH (09:10)
[2020-09-27] MEDS: TRACE ELEMENTS IV SCH ×4 (10:12)
[2020-09-27] MEDS: [UNRECOGNIZED DRUG - OTHER] IV SCH ×4 (10:12)
[2020-09-27] MEDS: CLINIMIX IV SCH ×4 (10:12)
[2020-09-27] MEDS ORDERED: OFIRMEV IV 1000 MG VIAL 1,000 MG/100 ML VIAL IV ONE (10:14)
[2020-09-27] MEDS: OFIRMEV IV 1000 MG VIAL 1,000 MG/100 ML VIAL IV PRN (10:15)
[2020-09-27] MEDS: LEVAQUIN PREMIX IV 500 MG 500 MG/100 ML BAG IV SCH (10:16)
--- NOTE | 2020-09-27 13:12 | RAD ---
HISTORYEDEMA INTUBATIONSTUDYCHEST, 1 VIEWCOMPARISONPortable chest September 26, 2020FINDINGSThe trachea is midline. An ET tube is in good position 3 cm above the leandra. Right internal jugular central venous catheter tip is in the right atrium. The cardiac silhouette is unremarkable . The lungs are clear without focal infiltrate or effusion. The bony thorax is unremarkable.IMPRESSIONETT in right internal jugular central venous catheter in good position.No acute infiltrates are observed and there is no change compared to the last study of September 26, 2020.Electronically signed by: CHAN MARTINEZ (Sep 27, 2020 13:10:01)
[2020-09-27 14:36] LABS: BILIRUBIN,URINE NEGATIVE (NEGATIVE); BLOOD/HEMOGLOBIN,URINE 5+ (NEGATIVE); GLUCOSE, URINE NEGATIVE (NEGATIVE); KETONES,URINE NEGATIVE (NEGATIVE); LEUKOCYTE ESTERASE ,URINE NEGATIVE (NEGATIVE); NITRITES,URINE NEGATIVE (NEGATIVE); PROTEIN,URINE 3+ (NEGATIVE); UROBILINOGEN,URINE NORMAL (NORMAL)
[2020-09-27 14:53] LABS: APPEARANCE,URINE HAZY (CLEAR); COLOR,URINE DARK YELLOW (YELLOW); RBC,URINE 30-50 /HPF (0-3)
[2020-09-27 14:54] LABS: BACTERIA,URINE NEGATIVE /HPF (NEGATIVE); SQUAMOUS EPITHELIAL CELL,UR NEGATIVE /HPF (NEGATIVE); URIC ACID CRYSTALS,URINE FEW /HPF (NEGATIVE)
[2020-09-27] MEDS ORDERED: PHARMACY CONSULT - IVERMECTIN XX SCH (15:00)
[2020-09-27] MEDS ORDERED: D5 1/2 NS 1000 ML 1,000 ML IV ONE (16:19)
[2020-09-27] MEDS: D5 1/2 NS 1000 ML 1,000 ML IV SCH (16:30)
--- NOTE | 2020-09-27 17:56 | DR.PROGNOT ---
Hospital Progress Notes - Progress Note for Day of: Progress Note Date: 09/27/20 - Chief Complaint Chief Complaint: stable and we were able to extubate her this PM . stil not responsive to verbal commands . - Past Medical Family Social History Past Med/Fam/Surg Hx: No changes since H&P Allergies: Allergies codeine Allergy (Verified 09/22/20 20:50) - Review Of Systems ROS: No change since H&P - Vital Signs Vital Signs: Temperature 99.8 F Pulse Rate [Left] 97 Pulse Rate 144 Respiratory Rate 32 Blood Pressure [Right Arm] 152/53 Blood Pressure [Left Arm] 158/79 Blood Pressure 192/91 O2 Sat by Pulse Oximetry 97 - Physical Exam Oriented: Normal, Other (not responsive .) Eyes: Normal Ear: Normal Nose: Normal Throat: Normal Respiratory: OTHER (on respirator) Cardiovascular: Normal : Normal GI:Auscultation: Decreased (soft abdomen . BS hypoactive ..) GI:Palpation: Normal GI: Tenderness: Diffuse Skin: Normal Musculoskeletal: Normal Psychiatric: Normal Mood Description: Calm Affect: Normal Speech Pattern: Appropriate - Laboratory and Diagnostics Result Diagrams: 09/27/20 04:05 09/27/20 04:05 Labs: 09/24/20 11:46 Urine,Clean Catch Urine Culture - Final 09/22/20 20:30 Blood Blood Culture - Preliminary 09/22/20 20:05 Blood Blood Culture - Preliminary Laboratory WBC 17.1 X10^3/uL (3.6-10.0) H 09/27/20 04:05 RBC 3.16 X10^6/uL (3.5-5.4) L 09/27/20 04:05 Hgb 8.6 g/dL (12.0-16.0) L 09/27/20 04:05 Hct 26.4 % (36.0-47.0) L 09/27/20 04:05 MCV 83.4 fL (80.0-100.0) 09/27/20 04:05 MCH 27.1 pg (27.0-34.0) 09/27/20 04:05 MCHC 32.5 g/dL (33.0-35.0) L 09/27/20 04:05 RDW 20.5 % (11.6-16.5) H 09/27/20 04:05 Plt Count 112 X10^3/uL (150.0-450.0) L 09/27/20 04:05 Plt Count Comment Decreased (ADEQUATE) A 09/27/20 04:05 MPV 10.2 fL (7.4-11.0) 09/27/20 04:05 Neut % (Auto) 65.7 % (42.0-75.0) 09/27/20 04:05 Lymph % (Auto) 19.5 % (21.0-51.0) L 09/27/20 04:05 [place] % (Auto) 13.5 % (0.0-13.0) H 09/27/20 04:05 Eos % (Auto) 0.5 % (0.9-2.9) L 09/27/20 04:05 Baso % (Auto) 0.8 % (0.2-1.0) 09/27/20 04:05 Neut # (Auto) 11.3 x10^3/uL (2.2-4.8) H 09/27/20 04:05 Lymph # (Auto) 3.3 X10^3/uL (1.3-2.9) H 09/27/20 04:05 [place] # (Auto) 2.3 x10^3/uL (0.3-0.8) H 09/27/20 04:05 Eos # (Auto) 0.1 x10^3/uL (0.0-0.2) 09/27/20 04:05 Baso # (Auto) 0.1 X10^3/uL (0.0-0.1) 09/27/20 04:05 Absolute Nucleated RBC 3.7 /100WBC 09/27/20 04:05 Total Counted 100 09/27/20 04:05 Neutrophils % (Manual) 68 % (39-76) 09/27/20 04:05 Band Neutrophils % 11 % (0-10) H 09/26/20 05:16 Lymphocytes % (Manual) 20 % (13-43) 09/27/20 04:05 Monocytes % (Manual) 8 % (4-9) 09/27/20 04:05 Eosinophils % (Manual) 1 % (0-6) 09/27/20 04:05 Basophils % (Manual) Cancelled 09/24/20 04:00 Metamyelocytes % 2 09/26/20 05:16 Myelocytes % 4 09/25/20 16:22 Promyelocytes % Cancelled 09/24/20 04:00 Nucleated RBCs 13 09/27/20 04:05 Atypical Lymphocytes Rare A 09/27/20 04:05 Blast Cells Cancelled 09/24/20 04:00 Smudge Cells Cancelled 09/24/20 04:00 Toxic Granulation Cancelled 09/24/20 04:00 Dohle Bodies Cancelled 09/24/20 04:00 Isabela Rods Cancelled 09/24/20 04:00 Plt Clumps, EDTA Cancelled 09/24/20 04:00 Giant Platelets Cancelled 09/24/20 04:00 Plt Morphology Comment Normal (NORMAL) 09/27/20 04:05 RBC Morphology Abnormal (NORMAL) A 09/27/20 04:05 Dimorphic RBCs Cancelled 09/24/20 04:00 Polychromasia Cancelled 09/24/20 04:00 Hypochromasia Cancelled 09/24/20 04:00 Poikilocytosis Cancelled 09/24/20 04:00 Basophilic Stippling Cancelled 09/24/20 04:00 Anisocytosis 1+ A 09/27/20 04:05 Microcytosis Cancelled 09/24/20 04:00 Macrocytosis Cancelled 09/24/20 04:00 Spherocytes Cancelled 09/24/20 04:00 Pappenheimer Bodies Cancelled 09/24/20 04:00 Sickle Cells Cancelled 09/24/20 04:00 Target Cells Cancelled 09/24/20 04:00 Tear Drop Cells Cancelled 09/24/20 04:00 Ovalocytes Cancelled 09/24/20 04:00 Stomatocytes Cancelled 09/24/20 04:00 Helmet Cells Cancelled 09/24/20 04:00 Lockhart-Bulger Bodies Cancelled 09/24/20 04:00 [place] Rings Cancelled 09/24/20 04:00 Wiliam Cells Cancelled 09/24/20 04:00 Crenated Cell Cancelled 09/24/20 04:00 Acanthocytes (Spur) Cancelled 09/24/20 04:00 Rouleaux Cancelled 09/24/20 04:00 Schistocytes Cancelled 09/24/20 04:00 ESR 7 MM/HOUR (0-20) 09/22/20 20:05 PT 18.4 SECONDS (11.8-14.3) 09/25/20 16:22 INR Target Range - 09/25/20 16:22 INR 1.58 (0.8-1.3) H 09/25/20 16:22 APTT 39.5 SECONDS (22.9-36.5) H 09/25/20 16:22 PTT Comment - 09/25/20 16:22 Sample Site R rad 09/27/20 04:55 ABG pH 7.470 (7.35-7.45) H 09/27/20 04:55 ABG pCO2 34.0 mmHg (35.0-45.0) L 09/27/20 04:55 ABG pO2 96.0 mmHg (80.0-100.0) 09/27/20 04:55 ABG HCO3 24.7 mmol/L (22-26) 09/27/20 04:55 ABG O2 Saturation 98.0 % (90-100) 09/27/20 04:55 ABG Base Excess 1.4 mmol/L (-2.0-2.0) 09/27/20 04:55 Isreal Test Poss 09/27/20 04:55 A-a Gradient 61.0 mmHg 09/27/20 04:55 FiO2 28.0 09/27/20 04:55 Blood Gas Comments Kirit well kb 09/27/20 04:55 Sodium 146 mmol/L (136-145) H 09/27/20 04:05 Corrected Sodium 148 mmol/L (136-145) H 09/27/20 04:05 Potassium 3.3 mmol/L (3.5-5.1) L 09/27/20 04:05 Chloride 113 mmol/L (98-107) H 09/27/20 04:05 Carbon Dioxide 25.0 mmol/L (21-32) 09/27/20 04:05 BUN 26 mg/dL (7-18) H 09/27/20 04:05 Creatinine 0.98 mg/dL (0.55-1.02) 09/27/20 04:05 Est GFR (MDRD) Af Amer > 60 (>60) 09/27/20 04:05 Est GFR (MDRD) Non-Af 60 (>60) 09/27/20 04:05 Glucose 199 mg/dL (65-99) H 09/27/20 04:05 POC Glucose (mg/dL) 141 mg/dL (65-99) H 09/27/20 15:58 Lactic Acid 1.7 mmol/L (0.4-2.0) 09/26/20 08:47 Calcium 9.4 mg/dL (8.5-10.1) 09/27/20 04:05 Corrected Calcium 10.8 mg/dL (8.5-10.1) H 09/27/20 04:05 Magnesium 1.8 mg/dL (1.7-2.9) 09/27/20 04:05 Total Bilirubin 0.50 mg/dL (0.2-1.0) 09/27/20 04:05 AST 290 Units/L (15-37) H 09/27/20 04:05 ALT 65 Units/L (12-78) 09/27/20 04:05 Alkaline Phosphatase 205 Units/L (46-116) H 09/27/20 04:05 Lactate Dehydrogenase 4395 Units/L (81-234) H 09/22/20 20:05 Creatine Kinase 326 Units/L (26-192) H 09/26/20 08:47 CK-MB (CK-2) 2.5 ng/mL (0-4.0) 09/26/20 08:47 CK/CKMB % Calc 0.8 % (<4) 09/26/20 08:47 Troponin I 0.13 ng/mL (0-1.5) 09/26/20 08:47 C-Reactive Protein 74.60 mg/L (0-3.0) H 09/27/20 04:05 B-Natriuretic Peptide 37.5 pg/mL (0-79) 09/27/20 04:05 Total Protein 4.9 g/dL (6.4-8.2) L 09/27/20 04:05 Albumin 2.3 g/dL (3.4-5.0) L 09/27/20 04:05 Globulin 2.6 g/dL (2.5-4.5) 09/27/20 04:05 Albumin/Globulin Ratio 0.9 Ratio (1.1-2.1) L 09/27/20 04:05 Prealbumin 8.7 mg/dL (18-35.7) L 09/27/20 04:05 Amylase 15 Units/L (25-115) L 09/24/20 04:10 Lipase 193 Units/L (73-393) 09/24/20 04:10 Specimen Type Catherized urine 09/27/20 14:03 Urine Color Dark yellow (YELLOW) 09/27/20 14:03 Urine Appearance Hazy (CLEAR) 09/27/20 14:03 Urine pH 5.0 (5.0 - 8.0) 09/27/20 14:03 Ur Specific [place] 1.020 (1.000-1.030) 09/27/20 14:03 Urine Protein 3+ (NEGATIVE) 09/27/20 14:03 Urine Glucose (UA) Negative (NEGATIVE) 09/27/20 14:03 Urine Ketones Negative (NEGATIVE) 09/27/20 14:03 Urine Occult Blood 5+ (NEGATIVE) 09/27/20 14:03 Urine Nitrite Negative (NEGATIVE) 09/27/20 14:03 Urine Bilirubin Negative (NEGATIVE) 09/27/20 14:03 Urine Urobilinogen Normal (NORMAL) 09/27/20 14:03 Ur Leukocyte Esterase Negative (NEGATIVE) 09/27/20 14:03 Urine RBC 30-50 /HPF (0-3) A 09/27/20 14:03 Urine WBC None seen /HPF (0-5) 09/27/20 14:03 Ur Squamous Epith Cells Negative /HPF (NEGATIVE) 09/27/20 14:03 Uric Acid Crystals Few /HPF (NEGATIVE) 09/27/20 14:03 Urine Bacteria Negative /HPF (NEGATIVE) 09/27/20 14:03 Ur Culture Indicated? No/not indicated 09/27/20 14:03 Urine Opiates Screen Negative (NEG=<300) 09/22/20 21:01 Urine Methadone Screen Negative (NEG=<300) 09/22/20 21:01 Ur Barbiturates Screen Negative (NEG=<200) 09/22/20 21:01 Ur Phencyclidine Scrn Negative (NEG=<25) 09/22/20 21:01 Ur Amphetamines Screen Negative (NEG=<1000) 09/22/20 21:01 U Benzodiazepines Scrn Negative (NEG=<200) 09/22/20 21:01 Urine Cocaine Screen Negative (NEG=<300) 09/22/20 21:01 U Marijuana (THC) Screen Negative (NEG=<50) 09/22/20 21:01 SARS-CoV-2 (PCR) Negative (NEGATIVE) 09/23/20 00:08 Influenza Type A (PCR) Negative (NEGATIVE) 09/23/20 00:08 Influenza Type B (PCR) Negative (NEGATIVE) 09/23/20 00:08 RSV (PCR) Negative (NEGATIVE) 09/23/20 00:08 Tissue Pathology To follow 09/25/20 15:24 Blood Type A POSITIVE 09/25/20 22:05 Antibody Screen Negative 09/25/20 17:30 Crossmatch See Detail 09/25/20 17:30 Tx React Prelim Eval Inconclusive 09/25/20 22:05 Tx React Symptoms Fever 09/25/20 22:05 Reaction Path Interpret Febrile reaction 09/25/20 22:[address] 09/25/20 22:05 Blood Bank Comment Performed by P2 09/25/20 22:05 - Assessment and Plan 1: sepsis from gangrenous GB and UTI . s/p cholecystectomy . same IV ATB and PO care .. Pt is still critical .. started on IVF now . - Problem Patient Problems: Patient Problems Sepsis (Acute) A41.9 Acute UTI (Acute) N39.0 Intractable nausea and vomiting (Acute) R11.2 Acute cholecystitis (Acute) K81.0
[2020-09-27] MEDS ORDERED: IVERMECTIN PO ONE (18:00)
[2020-09-27] MEDS: DILAUDID INJ IVP PRN (22:45)
[2020-09-28] MEDS: LOPRESSOR INJ 5 MG AMP IVP PRN (00:36)
[2020-09-28] MEDS: D5 1/2 NS 1000 ML 1,000 ML IV SCH ×5 (01:21→17:24)
[2020-09-28] MEDS: DILAUDID INJ IVP PRN ×3 (02:38→20:12)
--- NOTE | 2020-09-28 03:09 | RAD ---
PROCEDURE: Chest X-ray 1 View .HISTORY: Short of breath and abnormal auscultation.TECHNIQUE: AP view .COMPARISON: 09/27/2020.TECHNICAL QUALITY: Satisfactory .FINDINGS:Interval extubation. Right internal jugular central venous line tip projected over the right atrium is unchanged.Normal size heart.Mediastinum and hilar regions show no masses or lymphadenopathy .Normal central vascularity .No pulmonary consolidation, masses, pleural fluid, or pneumothorax .No acute bony abnormality .IMPRESSION:1. No active cardiopulmonary disease .2. Interval extubation of the patientElectronically signed by: Sarath Gonzalez (Sep 28, 2020 03:07:43)
[2020-09-28] MEDS: FORTAZ or TAZICEF VIAL INJ 1 G in NS 100 ML IV + SPIKE MINIBAG* 100 ML IV SCH ×3 (06:01→22:05)
[2020-09-28 06:06] LABS: ALANINE AMINOTRANSFERASE 54 Units/L (12-78); ALBUMIN 2.1 g/dL (3.4-5.0); ALKALINE PHOSPHATASE 144 Units/L (46-116); ASPARTATE AMINO TRANSFERASE 123 Units/L (15-37); BLOOD UREA NITROGEN 30 mg/dL (7-18); CARBON DIOXIDE 26.1 mmol/L (21-32); CHLORIDE 112 mmol/L (98-107); COR CA(FOR HYPOALB) 10.5 mg/dL (8.5-10.1); COR NA(FOR HYPERGLY) 150 mmol/L (136-145); SODIUM 146 mmol/L (136-145); TOTAL PROTEIN 4.3 g/dL (6.4-8.2); eGFR NON BLACK RACES 59 (>60)
[2020-09-28 06:18] LABS: ABG BASE EXCESS 0.8 mmol/L (-2.0-2.0); ABG HCO3 25.3 mmol/L (22-26)
[2020-09-28 06:20] LABS: BASOPHILS # (AUTO) 0.1 X10^3/uL (0.0-0.1); BASOPHILS % (AUTO) 0.8 % (0.2-1.0); EOSINOPHILS % (AUTO) 0.3 % (0.9-2.9); HEMATOCRIT 21.4 % (36.0-47.0); LYMPHOCYTES # (AUTO) 1.3 X10^3/uL (1.3-2.9); LYMPHOCYTES % (AUTO) 15.2 % (21.0-51.0); MEAN CORPUSCULAR VOLUME 84.5 fL (80.0-100.0); MEAN PLATELET VOLUME 9.6 fL (7.4-11.0); MONOCYTES # (AUTO) 0.6 x10^3/uL (0.3-0.8); MONOCYTES % (AUTO) 7.8 % (0.0-13.0); NEUTROPHILS # (AUTO) 6.2 x10^3/uL (2.2-4.8); NEUTROPHILS % (AUTO) 75.9 % (42.0-75.0); PLATELET COUNT 86 X10^3/uL (150.0-450.0); RED BLOOD COUNT 2.53 X10^6/uL (3.5-5.4); RED CELL DISTRIBUTION WIDTH 20.4 % (11.6-16.5); WHITE BLOOD COUNT 8.2 X10^3/uL (3.6-10.0)
[2020-09-28 06:21] LABS: ABG ALLEN TEST POSS
[2020-09-28 06:23] LABS: HEMOGLOBIN 6.9 g/dL (12.0-16.0)
[2020-09-28 07:02] LABS: ANISOCYTOSIS 1+; BAND NEUTROPHILS % 8 % (0-10); BASOPHILS % (MANUAL) 1 % (0-1); PLATELET MORPHOLOGY COMMENT NORMAL (NORMAL)
[2020-09-28] MEDS: LEVAQUIN PREMIX IV 500 MG 500 MG/100 ML BAG IV SCH (08:24)
[2020-09-28] MEDS: ALBUMIN HUMAN 25%- 100 ML 100 ML IV SCH (09:34)
--- NOTE | 2020-09-28 10:34 | PCM.PROG ---
Progress Note Progress Note for Day of Date of Exam: 09/28/20 Subjective Subjective: Pt is a 70 year old female admitted for sepsis due to combination of gangrenous gallbladder and urosepsis. She was recently extubated and is currently on CPAP with FiO2 28%. There is some difficulty with her following commands, only opening her eyes after asking multiple times. No acute events overnight. Labs/imaging: Wbc 8.2, Hgb 6.9, Plt 86, Na 146, K 3.3, Cr 1.00, Glucose 280, AST 123, ALT 54, ALP 144, CRP 34, ABG: PH 7.42, PC02 39, P02 185, HC03 25, 02 SAT 100%, FI02 50. CXR: 1. No active cardiopulmonary disease. 2. Interval extubation of the patient. Will continue to wean oxygen as tolerated. Continue IV antibiotics Fortaz and Levaquin. Hemoglobin is low this morning, will repeat CBC again at noon and consider blood transfusion if indicated. Otherwise continue current treatment plan. Monitor and follow up labs/imaging in the morning. Past Medical Family Social History Past Med/Fam/Surg Hx: No changes since H&P Allergies: Allergies codeine Allergy (Verified 09/22/20 20:50) Review of Systems ROS: No change since H&P Vital Signs and I&O's Vital Signs: Temperature 98.4 F Pulse Rate [Left] 74 Pulse Rate 144 Respiratory Rate 14 Blood Pressure [Right Arm] 115/73 Blood Pressure [Left Arm] 158/79 Blood Pressure 169/88 O2 Sat by Pulse Oximetry 100 Intake and Output: Intake & Output 09/25/20 09/26/20 09/27/20 09/28/20 23:59 23:59 23:59 23:59 Intake Total 7889 / 7889 4300.0 / 4300.0 2523 / 2523 2227 / 2227 Output Total 3150 / 3150 1274 / 1274 1717 / 1717 Balance 4739 / 4739 3026.0 / 3026.0 806 / 806 2207 / 2207 Physical Exam Oriented: Normal and Other (not responsive .) Eyes: Normal Ear: Normal Nose: Normal Throat: Normal Respiratory: OTHER (on respirator) Cardiovascular: Normal : Normal Auscultation: Bowel Sounds: Decreased (soft abdomen . BS hypoactive ..) Tenderness: Diffuse Skin: Normal Musculoskeletal: Normal Psychiatric: Normal Mood Description: Calm Affect: Normal Speech Pattern: Appropriate Laboratory and Diagnostics Result Diagrams: 09/28/20 05:28 09/28/20 05:28 Labs: 09/26/20 05:16 Blood Blood Culture - Preliminary 09/26/20 05:10 Blood Blood Culture - Preliminary 09/22/20 20:30 Blood Blood Culture - Final 09/22/20 20:05 Blood Blood Culture - Final 09/24/20 11:46 Urine,Clean Catch Urine Culture - Final Laboratory WBC 8.2 X10^3/uL (3.6-10.0) D 09/28/20 05:28 RBC 2.53 X10^6/uL (3.5-5.4) L 09/28/20 05:28 Hgb 6.9 g/dL (12.0-16.0) L* 09/28/20 05:28 Hct 21.4 % (36.0-47.0) L 09/28/20 05:28 MCV 84.5 fL (80.0-100.0) 09/28/20 05:28 MCH 27.0 pg (27.0-34.0) 09/28/20 05:28 MCHC 32.0 g/dL (33.0-35.0) L 09/28/20 05:28 RDW 20.4 % (11.6-16.5) H 09/28/20 05:28 Plt Count 86 X10^3/uL (150.0-450.0) L 09/28/20 05:28 Plt Count Comment Decreased (ADEQUATE) A 09/28/20 05:28 MPV 9.6 fL (7.4-11.0) 09/28/20 05:28 Neut % (Auto) 75.9 % (42.0-75.0) H 09/28/20 05:28 Lymph % (Auto) 15.2 % (21.0-51.0) L 09/28/20 05:28 [place] % (Auto) 7.8 % (0.0-13.0) 09/28/20 05:28 Eos % (Auto) 0.3 % (0.9-2.9) L 09/28/20 05:28 Baso % (Auto) 0.8 % (0.2-1.0) 09/28/20 05:28 Neut # (Auto) 6.2 x10^3/uL (2.2-4.8) H 09/28/20 05:28 Lymph # (Auto) 1.3 X10^3/uL (1.3-2.9) 09/28/20 05:28 [place] # (Auto) 0.6 x10^3/uL (0.3-0.8) 09/28/20 05:28 Eos # (Auto) 0.0 x10^3/uL (0.0-0.2) 09/28/20 05:28 Baso # (Auto) 0.1 X10^3/uL (0.0-0.1) 09/28/20 05:28 Absolute Nucleated RBC 3.0 /100WBC 09/28/20 05:28 Total Counted 100 09/28/20 05:28 Neutrophils % (Manual) 66 % (39-76) 09/28/20 05:28 Band Neutrophils % 8 % (0-10) 09/28/20 05:28 Lymphocytes % (Manual) 16 % (13-43) 09/28/20 05:28 Monocytes % (Manual) 9 % (4-9) 09/28/20 05:28 Eosinophils % (Manual) 1 % (0-6) 09/27/20 04:05 Basophils % (Manual) 1 % (0-1) 09/28/20 05:28 Metamyelocytes % 2 09/26/20 05:16 Myelocytes % 4 09/25/20 16:22 Promyelocytes % Cancelled 09/24/20 04:00 Nucleated RBCs 2 09/28/20 05:28 Atypical Lymphocytes Rare A 09/27/20 04:05 Blast Cells Cancelled 09/24/20 04:00 Smudge Cells Cancelled 09/24/20 04:00 Toxic Granulation Cancelled 09/24/20 04:00 Dohle Bodies Cancelled 09/24/20 04:00 Isabela Rods Cancelled 09/24/20 04:00 Plt Clumps, EDTA Cancelled 09/24/20 04:00 Giant Platelets Cancelled 09/24/20 04:00 Plt Morphology Comment Normal (NORMAL) 09/28/20 05:28 RBC Morphology Abnormal (NORMAL) A 09/28/20 05:28 Dimorphic RBCs Cancelled 09/24/20 04:00 Polychromasia Cancelled 09/24/20 04:00 Hypochromasia Cancelled 09/24/20 04:00 Poikilocytosis Cancelled 09/24/20 04:00 Basophilic Stippling Cancelled 09/24/20 04:00 Anisocytosis 1+ A 09/28/20 05:28 Microcytosis Cancelled 09/24/20 04:00 Macrocytosis Cancelled 09/24/20 04:00 Spherocytes Cancelled 09/24/20 04:00 Pappenheimer Bodies Cancelled 09/24/20 04:00 Sickle Cells Cancelled 09/24/20 04:00 Target Cells Cancelled 09/24/20 04:00 Tear Drop Cells Cancelled 09/24/20 04:00 Ovalocytes Cancelled 09/24/20 04:00 Stomatocytes Cancelled 09/24/20 04:00 Helmet Cells Cancelled 09/24/20 04:00 [place] Bodies Cancelled 09/24/20 04:00 [place] Rings Cancelled 09/24/20 04:00 [place] Cells Cancelled 09/24/20 04:00 Crenated Cell Cancelled 09/24/20 04:00 Acanthocytes (Spur) Cancelled 09/24/20 04:00 Rouleaux Cancelled 09/24/20 04:00 Schistocytes Cancelled 09/24/20 04:00 ESR 7 MM/HOUR (0-20) 09/22/20 20:05 PT 18.4 SECONDS (11.8-14.3) 09/25/20 16:22 INR Target Range - 09/25/20 16:22 INR 1.58 (0.8-1.3) H 09/25/20 16:22 APTT 39.5 SECONDS (22.9-36.5) H 09/25/20 16:22 PTT Comment - 09/25/20 16:22 Sample Site R rad 09/28/20 06:10 ABG pH 7.420 (7.35-7.45) 09/28/20 06:10 ABG pCO2 39.0 mmHg (35.0-45.0) 09/28/20 06:10 ABG pO2 185.0 mmHg (80.0-100.0) H 09/28/20 06:10 ABG HCO3 25.3 mmol/L (22-26) 09/28/20 06:10 ABG O2 Saturation 100.0 % (90-100) 09/28/20 06:10 ABG Base Excess 0.8 mmol/L (-2.0-2.0) 09/28/20 06:10 Isreal Test Poss 09/28/20 06:10 A-a Gradient 123.0 mmHg 09/28/20 06:10 FiO2 50.0 09/28/20 06:10 Blood Gas Comments Kirit well kb 09/28/20 06:10 Sodium 146 mmol/L (136-145) H 09/28/20 05:28 Corrected Sodium 150 mmol/L (136-145) H 09/28/20 05:28 Potassium 3.3 mmol/L (3.5-5.1) L 09/28/20 05:28 Chloride 112 mmol/L (98-107) H 09/28/20 05:28 Carbon Dioxide 26.1 mmol/L (21-32) 09/28/20 05:28 BUN 30 mg/dL (7-18) H 09/28/20 05:28 Creatinine 1.00 mg/dL (0.55-1.02) 09/28/20 05:28 Est GFR (MDRD) Af Amer > 60 (>60) 09/28/20 05:28 Est GFR (MDRD) Non-Af 59 (>60) 09/28/20 05:28 Glucose 280 mg/dL (65-99) H 09/28/20 05:28 POC Glucose (mg/dL) 440 mg/dL (65-99) H 09/28/20 05:30 Lactic Acid 1.7 mmol/L (0.4-2.0) 09/26/20 08:47 Calcium 9.0 mg/dL (8.5-10.1) 09/28/20 05:28 Corrected Calcium 10.5 mg/dL (8.5-10.1) H 09/28/20 05:28 Magnesium 1.8 mg/dL (1.7-2.9) 09/27/20 04:05 Total Bilirubin 0.30 mg/dL (0.2-1.0) 09/28/20 05:28 AST 123 Units/L (15-37) H 09/28/20 05:28 ALT 54 Units/L (12-78) 09/28/20 05:28 Alkaline Phosphatase 144 Units/L (46-116) H 09/28/20 05:28 Lactate Dehydrogenase 4395 Units/L (81-234) H 09/22/20 20:05 Creatine Kinase 326 Units/L (26-192) H 09/26/20 08:47 CK-MB (CK-2) 2.5 ng/mL (0-4.0) 09/26/20 08:47 CK/CKMB % Calc 0.8 % (<4) 09/26/20 08:47 Troponin I 0.13 ng/mL (0-1.5) 09/26/20 08:47 C-Reactive Protein 34.00 mg/L (0-3.0) H 09/28/20 05:28 B-Natriuretic Peptide 37.5 pg/mL (0-79) 09/27/20 04:05 Total Protein 4.3 g/dL (6.4-8.2) L 09/28/20 05:28 Albumin 2.1 g/dL (3.4-5.0) L 09/28/20 05:28 Globulin 2.2 g/dL (2.5-4.5) L 09/28/20 05:28 Albumin/Globulin Ratio 1.0 Ratio (1.1-2.1) L 09/28/20 05:28 Prealbumin 8.7 mg/dL (18-35.7) L 09/27/20 04:05 Amylase 15 Units/L (25-115) L 09/24/20 04:10 Lipase 193 Units/L (73-393) 09/24/20 04:10 Specimen Type Catherized urine 09/27/20 14:03 Urine Color Dark yellow (YELLOW) 09/27/20 14:03 Urine Appearance Hazy (CLEAR) 09/27/20 14:03 Urine pH 5.0 (5.0 - 8.0) 09/27/20 14:03 Ur Specific [place] 1.020 (1.000-1.030) 09/27/20 14:03 Urine Protein 3+ (NEGATIVE) 09/27/20 14:03 Urine Glucose (UA) Negative (NEGATIVE) 09/27/20 14:03 Urine Ketones Negative (NEGATIVE) 09/27/20 14:03 Urine Occult Blood 5+ (NEGATIVE) 09/27/20 14:03 Urine Nitrite Negative (NEGATIVE) 09/27/20 14:03 Urine Bilirubin Negative (NEGATIVE) 09/27/20 14:03 Urine Urobilinogen Normal (NORMAL) 09/27/20 14:03 Ur Leukocyte Esterase Negative (NEGATIVE) 09/27/20 14:03 Urine RBC 30-50 /HPF (0-3) A 09/27/20 14:03 Urine WBC None seen /HPF (0-5) 09/27/20 14:03 Ur Squamous Epith Cells Negative /HPF (NEGATIVE) 09/27/20 14:03 Uric Acid Crystals Few /HPF (NEGATIVE) 09/27/20 14:03 Urine Bacteria Negative /HPF (NEGATIVE) 09/27/20 14:03 Ur Culture Indicated? No/not indicated 09/27/20 14:03 Urine Opiates Screen Negative (NEG=<300) 09/22/20 21:01 Urine Methadone Screen Negative (NEG=<300) 09/22/20 21:01 Ur Barbiturates Screen Negative (NEG=<200) 09/22/20 21:01 Ur Phencyclidine Scrn Negative (NEG=<25) 09/22/20 21:01 Ur Amphetamines Screen Negative (NEG=<1000) 09/22/20 21:01 U Benzodiazepines Scrn Negative (NEG=<200) 09/22/20 21:01 Urine Cocaine Screen Negative (NEG=<300) 09/22/20 21:01 U Marijuana (THC) Screen Negative (NEG=<50) 09/22/20 21:01 SARS-CoV-2 (PCR) Negative (NEGATIVE) 09/23/20 00:08 Influenza Type A (PCR) Negative (NEGATIVE) 09/23/20 00:08 Influenza Type B (PCR) Negative (NEGATIVE) 09/23/20 00:08 RSV (PCR) Negative (NEGATIVE) 09/23/20 00:08 Tissue Pathology To follow 09/25/20 15:24 Blood Type A POSITIVE 09/25/20 22:05 Antibody Screen Negative 09/25/20 17:30 Crossmatch See Detail 09/25/20 17:30 Tx React Prelim Eval Inconclusive 09/25/20 22:05 Tx React Symptoms Fever 09/25/20 22:05 Reaction Path Interpret Febrile reaction 09/25/20 22:[address]graham [place] 09/25/20 22:05 Blood Bank Comment Performed by Andrea 09/25/20 22:05 Plan (1) Acute cholecystitis: Status: Acute Plan: NS AT KVO, LEVAQUIN 500MG IV DAILY, FORTAZ 1G IV Q8H, ZOFRAN 4MG IV Q4H PRN NAUSEA, CLINIMIX FOR NUTRITION AT 40 ML/HR. (2) Acute UTI: Status: Acute Plan: NS AT KVO, LEVAQUIN 500MG IV DAILY, FORTAZ 1G IV Q8H, ZOFRAN 4MG IV Q4H PRN NAUSEA, CLINIMIX FOR NUTRITION AT 40 ML/HR. (3) Sepsis: Status: Acute Qualifiers: Sepsis acute organ dysfunction status: unspecified Sepsis type: sepsis due to unspecified organism Qualified Code(s): A41.9 - Sepsis, unspecified organism (4) Intractable nausea and vomiting: Status: Acute
--- NOTE | 2020-09-28 12:00 | DR.PROGNOT ---
Hospital Progress Notes - Progress Note for Day of: Progress Note Date: 09/28/20 - Chief Complaint Chief Complaint: stable VS ,. only slow response to pain stimuli.. fair urine output and minimal drainage in [place] .. - Past Medical Family Social History Past Med/Fam/Surg Hx: No changes since H&P Allergies: Allergies codeine Allergy (Verified 09/22/20 20:50) - Review Of Systems ROS: No change since H&P - Vital Signs Vital Signs: Temperature 98.4 F Pulse Rate [Left] 80 Pulse Rate 144 Respiratory Rate 16 Blood Pressure [Right Arm] 148/84 Blood Pressure [Left Arm] 158/79 Blood Pressure 169/88 O2 Sat by Pulse Oximetry 100 - Physical Exam Oriented: Normal, Other (not responsive .) Eyes: Normal Ear: Normal Nose: Normal Throat: Normal Respiratory: OTHER (on respirator) Cardiovascular: Normal : Normal GI:Auscultation: Decreased (soft abdomen . BS hypoactive ..) GI:Palpation: Normal GI: Tenderness: Diffuse Skin: Normal Musculoskeletal: Normal Psychiatric: Normal Mood Description: Calm Affect: Normal Speech Pattern: Appropriate - Laboratory and Diagnostics Result Diagrams: 09/28/20 05:28 09/28/20 05:28 Labs: 09/26/20 05:16 Blood Blood Culture - Preliminary 09/26/20 05:10 Blood Blood Culture - Preliminary 09/22/20 20:30 Blood Blood Culture - Final 09/22/20 20:05 Blood Blood Culture - Final 09/24/20 11:46 Urine,Clean Catch Urine Culture - Final Laboratory WBC 8.2 X10^3/uL (3.6-10.0) D 09/28/20 05:28 RBC 2.53 X10^6/uL (3.5-5.4) L 09/28/20 05:28 Hgb 6.9 g/dL (12.0-16.0) L* 09/28/20 05:28 Hct 21.4 % (36.0-47.0) L 09/28/20 05:28 MCV 84.5 fL (80.0-100.0) 09/28/20 05:28 MCH 27.0 pg (27.0-34.0) 09/28/20 05:28 MCHC 32.0 g/dL (33.0-35.0) L 09/28/20 05:28 RDW 20.4 % (11.6-16.5) H 09/28/20 05:28 Plt Count 86 X10^3/uL (150.0-450.0) L 09/28/20 05:28 Plt Count Comment Decreased (ADEQUATE) A 09/28/20 05:28 MPV 9.6 fL (7.4-11.0) 09/28/20 05:28 Neut % (Auto) 75.9 % (42.0-75.0) H 09/28/20 05:28 Lymph % (Auto) 15.2 % (21.0-51.0) L 09/28/20 05:28 [place] % (Auto) 7.8 % (0.0-13.0) 09/28/20 05:28 Eos % (Auto) 0.3 % (0.9-2.9) L 09/28/20 05:28 Baso % (Auto) 0.8 % (0.2-1.0) 09/28/20 05:28 Neut # (Auto) 6.2 x10^3/uL (2.2-4.8) H 09/28/20 05:28 Lymph # (Auto) 1.3 X10^3/uL (1.3-2.9) 09/28/20 05:28 [place] # (Auto) 0.6 x10^3/uL (0.3-0.8) 09/28/20 05:28 Eos # (Auto) 0.0 x10^3/uL (0.0-0.2) 09/28/20 05:28 Baso # (Auto) 0.1 X10^3/uL (0.0-0.1) 09/28/20 05:28 Absolute Nucleated RBC 3.0 /100WBC 09/28/20 05:28 Total Counted 100 09/28/20 05:28 Neutrophils % (Manual) 66 % (39-76) 09/28/20 05:28 Band Neutrophils % 8 % (0-10) 09/28/20 05:28 Lymphocytes % (Manual) 16 % (13-43) 09/28/20 05:28 Monocytes % (Manual) 9 % (4-9) 09/28/20 05:28 Eosinophils % (Manual) 1 % (0-6) 09/27/20 04:05 Basophils % (Manual) 1 % (0-1) 09/28/20 05:28 Metamyelocytes % 2 09/26/20 05:16 Myelocytes % 4 09/25/20 16:22 Promyelocytes % Cancelled 09/24/20 04:00 Nucleated RBCs 2 09/28/20 05:28 Atypical Lymphocytes Rare A 09/27/20 04:05 Blast Cells Cancelled 09/24/20 04:00 Smudge Cells Cancelled 09/24/20 04:00 Toxic Granulation Cancelled 09/24/20 04:00 Dohle Bodies Cancelled 09/24/20 04:00 Isabela Rods Cancelled 09/24/20 04:00 Plt Clumps, EDTA Cancelled 09/24/20 04:00 Giant Platelets Cancelled 09/24/20 04:00 Plt Morphology Comment Normal (NORMAL) 09/28/20 05:28 RBC Morphology Abnormal (NORMAL) A 09/28/20 05:28 Dimorphic RBCs Cancelled 09/24/20 04:00 Polychromasia Cancelled 09/24/20 04:00 Hypochromasia Cancelled 09/24/20 04:00 Poikilocytosis Cancelled 09/24/20 04:00 Basophilic Stippling Cancelled 09/24/20 04:00 Anisocytosis 1+ A 09/28/20 05:28 Microcytosis Cancelled 09/24/20 04:00 Macrocytosis Cancelled 09/24/20 04:00 Spherocytes Cancelled 09/24/20 04:00 Pappenheimer Bodies Cancelled 09/24/20 04:00 Sickle Cells Cancelled 09/24/20 04:00 Target Cells Cancelled 09/24/20 04:00 Tear Drop Cells Cancelled 09/24/20 04:00 Ovalocytes Cancelled 09/24/20 04:00 Stomatocytes Cancelled 09/24/20 04:00 Helmet Cells Cancelled 09/24/20 04:00 [place] Bodies Cancelled 09/24/20 04:00 [place] Rings Cancelled 09/24/20 04:00 [place] Cells Cancelled 09/24/20 04:00 Crenated Cell Cancelled 09/24/20 04:00 Acanthocytes (Spur) Cancelled 09/24/20 04:00 Rouleaux Cancelled 09/24/20 04:00 Schistocytes Cancelled 09/24/20 04:00 ESR 7 MM/HOUR (0-20) 09/22/20 20:05 PT 18.4 SECONDS (11.8-14.3) 09/25/20 16:22 INR Target Range - 09/25/20 16:22 INR 1.58 (0.8-1.3) H 09/25/20 16:22 APTT 39.5 SECONDS (22.9-36.5) H 09/25/20 16:22 PTT Comment - 09/25/20 16:22 Sample Site R rad 09/28/20 06:10 ABG pH 7.420 (7.35-7.45) 09/28/20 06:10 ABG pCO2 39.0 mmHg (35.0-45.0) 09/28/20 06:10 ABG pO2 185.0 mmHg (80.0-100.0) H 09/28/20 06:10 ABG HCO3 25.3 mmol/L (22-26) 09/28/20 06:10 ABG O2 Saturation 100.0 % (90-100) 09/28/20 06:10 ABG Base Excess 0.8 mmol/L (-2.0-2.0) 09/28/20 06:10 Isreal Test Poss 09/28/20 06:10 A-a Gradient 123.0 mmHg 09/28/20 06:10 FiO2 50.0 09/28/20 06:10 Blood Gas Comments Kirit well kb 09/28/20 06:10 Sodium 146 mmol/L (136-145) H 09/28/20 05:28 Corrected Sodium 150 mmol/L (136-145) H 09/28/20 05:28 Potassium 3.3 mmol/L (3.5-5.1) L 09/28/20 05:28 Chloride 112 mmol/L (98-107) H 09/28/20 05:28 Carbon Dioxide 26.1 mmol/L (21-32) 09/28/20 05:28 BUN 30 mg/dL (7-18) H 09/28/20 05:28 Creatinine 1.00 mg/dL (0.55-1.02) 09/28/20 05:28 Est GFR (MDRD) Af Amer > 60 (>60) 09/28/20 05:28 Est GFR (MDRD) Non-Af 59 (>60) 09/28/20 05:28 Glucose 280 mg/dL (65-99) H 09/28/20 05:28 POC Glucose (mg/dL) 129 mg/dL (65-99) H 09/28/20 11:52 Lactic Acid 1.7 mmol/L (0.4-2.0) 09/26/20 08:47 Calcium 9.0 mg/dL (8.5-10.1) 09/28/20 05:28 Corrected Calcium 10.5 mg/dL (8.5-10.1) H 09/28/20 05:28 Magnesium 1.8 mg/dL (1.7-2.9) 09/27/20 04:05 Total Bilirubin 0.30 mg/dL (0.2-1.0) 09/28/20 05:28 AST 123 Units/L (15-37) H 09/28/20 05:28 ALT 54 Units/L (12-78) 09/28/20 05:28 Alkaline Phosphatase 144 Units/L (46-116) H 09/28/20 05:28 Lactate Dehydrogenase 4395 Units/L (81-234) H 09/22/20 20:05 Creatine Kinase 326 Units/L (26-192) H 09/26/20 08:47 CK-MB (CK-2) 2.5 ng/mL (0-4.0) 09/26/20 08:47 CK/CKMB % Calc 0.8 % (<4) 09/26/20 08:47 Troponin I 0.13 ng/mL (0-1.5) 09/26/20 08:47 C-Reactive Protein 34.00 mg/L (0-3.0) H 09/28/20 05:28 B-Natriuretic Peptide 37.5 pg/mL (0-79) 09/27/20 04:05 Total Protein 4.3 g/dL (6.4-8.2) L 09/28/20 05:28 Albumin 2.1 g/dL (3.4-5.0) L 09/28/20 05:28 Globulin 2.2 g/dL (2.5-4.5) L 09/28/20 05:28 Albumin/Globulin Ratio 1.0 Ratio (1.1-2.1) L 09/28/20 05:28 Prealbumin 8.7 mg/dL (18-35.7) L 09/27/20 04:05 Amylase 15 Units/L (25-115) L 09/24/20 04:10 Lipase 193 Units/L (73-393) 09/24/20 04:10 Specimen Type Catherized urine 09/27/20 14:03 Urine Color Dark yellow (YELLOW) 09/27/20 14:03 Urine Appearance Hazy (CLEAR) 09/27/20 14:03 Urine pH 5.0 (5.0 - 8.0) 09/27/20 14:03 Ur Specific [place] 1.020 (1.000-1.030) 09/27/20 14:03 Urine Protein 3+ (NEGATIVE) 09/27/20 14:03 Urine Glucose (UA) Negative (NEGATIVE) 09/27/20 14:03 Urine Ketones Negative (NEGATIVE) 09/27/20 14:03 Urine Occult Blood 5+ (NEGATIVE) 09/27/20 14:03 Urine Nitrite Negative (NEGATIVE) 09/27/20 14:03 Urine Bilirubin Negative (NEGATIVE) 09/27/20 14:03 Urine Urobilinogen Normal (NORMAL) 09/27/20 14:03 Ur Leukocyte Esterase Negative (NEGATIVE) 09/27/20 14:03 Urine RBC 30-50 /HPF (0-3) A 09/27/20 14:03 Urine WBC None seen /HPF (0-5) 09/27/20 14:03 Ur Squamous Epith Cells Negative /HPF (NEGATIVE) 09/27/20 14:03 Uric Acid Crystals Few /HPF (NEGATIVE) 09/27/20 14:03 Urine Bacteria Negative /HPF (NEGATIVE) 09/27/20 14:03 Ur Culture Indicated? No/not indicated 09/27/20 14:03 Urine Opiates Screen Negative (NEG=<300) 09/22/20 21:01 Urine Methadone Screen Negative (NEG=<300) 09/22/20 21:01 Ur Barbiturates Screen Negative (NEG=<200) 09/22/20 21:01 Ur Phencyclidine Scrn Negative (NEG=<25) 09/22/20 21:01 Ur Amphetamines Screen Negative (NEG=<1000) 09/22/20 21:01 U Benzodiazepines Scrn Negative (NEG=<200) 09/22/20 21:01 Urine Cocaine Screen Negative (NEG=<300) 09/22/20 21:01 U Marijuana (THC) Screen Negative (NEG=<50) 09/22/20 21:01 SARS-CoV-2 (PCR) Negative (NEGATIVE) 09/23/20 00:08 Influenza Type A (PCR) Negative (NEGATIVE) 09/23/20 00:08 Influenza Type B (PCR) Negative (NEGATIVE) 09/23/20 00:08 RSV (PCR) Negative (NEGATIVE) 09/23/20 00:08 Tissue Pathology To follow 09/25/20 15:24 Blood Type A POSITIVE 09/25/20 22:05 Antibody Screen Negative 09/25/20 17:30 Crossmatch See Detail 09/25/20 17:30 Tx React Prelim Eval Inconclusive 09/25/20 22:05 Tx React Symptoms Fever 09/25/20 22:05 Reaction Path Interpret Febrile reaction 09/25/20 22:[address]ham [place] 09/25/20 22:05 Blood Bank Comment Performed by P2 09/25/20 22:05 - Assessment and Plan 1: sepsis from gangrenous GB and UTI . s/p cholecystectomy . same IV ATB and PO care .. Pt is still critical with metabolic encephalopathy .. - Problem Patient Problems: Patient Problems Sepsis (Acute) A41.9 Acute UTI (Acute) N39.0 Intractable nausea and vomiting (Acute) R11.2 Acute cholecystitis (Acute) K81.0
[2020-09-28 12:17] LABS: BASOPHILS # (AUTO) 0.1 X10^3/uL (0.0-0.1); EOSINOPHILS # (AUTO) 0.1 x10^3/uL (0.0-0.2); EOSINOPHILS % (AUTO) 1.4 % (0.9-2.9); HEMATOCRIT 21.7 % (36.0-47.0); LYMPHOCYTES # (AUTO) 1.2 X10^3/uL (1.3-2.9); LYMPHOCYTES % (AUTO) 15.7 % (21.0-51.0); MEAN CORPUSCULAR HEMOGLOBIN 26.6 pg (27.0-34.0); MEAN CORPUSCULAR VOLUME 83.2 fL (80.0-100.0); MEAN PLATELET VOLUME 9.5 fL (7.4-11.0); MONOCYTES # (AUTO) 0.7 x10^3/uL (0.3-0.8); MONOCYTES % (AUTO) 9.2 % (0.0-13.0); NEUTROPHILS # (AUTO) 5.6 x10^3/uL (2.2-4.8); NEUTROPHILS % (AUTO) 72.7 % (42.0-75.0); PLATELET COUNT 93 X10^3/uL (150.0-450.0); RED BLOOD COUNT 2.61 X10^6/uL (3.5-5.4); RED CELL DISTRIBUTION WIDTH 20.6 % (11.6-16.5); WHITE BLOOD COUNT 7.7 X10^3/uL (3.6-10.0)
[2020-09-28 12:49] LABS: ANISOCYTOSIS 1+; PLATELET MORPHOLOGY COMMENT NORMAL (NORMAL)
[2020-09-28] MEDS ORDERED: LOPRESSOR INJ 5 MG AMP IVP ONE (22:37)
[2020-09-28] MEDS ORDERED: LOPRESSOR INJ 5 MG AMP ONE (22:53)
--- NOTE | 2020-09-29 00:02 | CT ---
PROCEDURE: CT Head without Contrast .HISTORY: PUPILS UNREACTIVE .TECHNIQUE: Axial images were performed through the head without the administration of IV contrast with multiplanar reformations . Dose reduction techniques including Automated Exposure Control (AEC) and adjustment of mA and kV were utilized .COMPARISON: None.TECHNICAL QUALITY: Satisfactory .FINDINGS:Brain shows no mass, hemorrhage, or acute stroke.Ventricles are normal size for patient's age.No acute skull or scalp abnormality.Orbits are unremarkable.Mild mucosal thickening left maxillary sinus and clear mastoids.IMPRESSION:Normal CT scan of the brain.Electronically signed by: Sarath Gonzalez (Sep 29, 2020 00:00:30)
[2020-09-29] MEDS: DILAUDID INJ IVP PRN (00:31)
[2020-09-29] MEDS: D5 1/2 NS 1000 ML 1,000 ML IV SCH ×5 (01:27→19:43)
[2020-09-29] MEDS: FORTAZ or TAZICEF VIAL INJ 1 G in NS 100 ML IV + SPIKE MINIBAG* 100 ML IV SCH ×3 (05:15→21:01)
[2020-09-29 06:30] LABS: BASOPHILS # (AUTO) 0.2 X10^3/uL (0.0-0.1); BASOPHILS % (AUTO) 1.9 % (0.2-1.0); EOSINOPHILS # (AUTO) 0.1 x10^3/uL (0.0-0.2); EOSINOPHILS % (AUTO) 1.1 % (0.9-2.9); HEMATOCRIT 22.6 % (36.0-47.0); HEMOGLOBIN 7.4 g/dL (12.0-16.0); LYMPHOCYTES # (AUTO) 2.2 X10^3/uL (1.3-2.9); LYMPHOCYTES % (AUTO) 23.8 % (21.0-51.0); MEAN CORPUSCULAR HGB CONC 32.5 g/dL (33.0-35.0); MEAN CORPUSCULAR VOLUME 82.9 fL (80.0-100.0); MEAN PLATELET VOLUME 10.4 fL (7.4-11.0); MONOCYTES % (AUTO) 10.5 % (0.0-13.0); NEUTROPHILS # (AUTO) 5.9 x10^3/uL (2.2-4.8); NEUTROPHILS % (AUTO) 62.7 % (42.0-75.0); PLATELET COUNT 96 X10^3/uL (150.0-450.0); RED BLOOD COUNT 2.73 X10^6/uL (3.5-5.4); RED CELL DISTRIBUTION WIDTH 20.7 % (11.6-16.5); WHITE BLOOD COUNT 9.4 X10^3/uL (3.6-10.0)
[2020-09-29] MEDS: LOPRESSOR INJ 5 MG AMP IVP PRN ×2 (06:30→20:01)
[2020-09-29 06:35] LABS: ABG ALLEN TEST POS; ABG BASE EXCESS 2.9 mmol/L (-2.0-2.0); ABG HCO3 25.3 mmol/L (22-26)
[2020-09-29 06:42] LABS: ALANINE AMINOTRANSFERASE 47 Units/L (12-78); ALBUMIN 2.7 g/dL (3.4-5.0); ALKALINE PHOSPHATASE 180 Units/L (46-116); ASPARTATE AMINO TRANSFERASE 81 Units/L (15-37); BLOOD UREA NITROGEN 21 mg/dL (7-18); CALCIUM 10.1 mg/dL (8.5-10.1); CHLORIDE 113 mmol/L (98-107); COR CA(FOR HYPOALB) 11.1 mg/dL (8.5-10.1); COR NA(FOR HYPERGLY) 149 mmol/L (136-145); CREATININE 0.84 mg/dL (0.55-1.02); SODIUM 148 mmol/L (136-145); TOTAL PROTEIN 4.9 g/dL (6.4-8.2); eGFR NON BLACK RACES > 60 (>60)
[2020-09-29 07:09] LABS: BAND NEUTROPHILS % 3 % (0-10); BASOPHILS % (MANUAL) 1 % (0-1); PLATELET MORPHOLOGY COMMENT NORMAL (NORMAL)
[2020-09-29 07:10] LABS: ANISOCYTOSIS 1+
[2020-09-29] MEDS: K-RIDER 10 MEQ/NS 100 ML 10 MEQ/100 ML BAG IV PRN ×4 (07:53→19:44)
[2020-09-29] MEDS: ALBUMIN HUMAN 25%- 100 ML 100 ML IV SCH (09:26)
[2020-09-29] MEDS: APRESOLINE INJ 20 MG VIAL IVP PRN ×2 (09:44→18:10)
[2020-09-29] MEDS: LEVAQUIN PREMIX IV 500 MG 500 MG/100 ML BAG IV SCH (10:41)
--- NOTE | 2020-09-29 12:31 | PCM.PROG ---
Progress Note Progress Note for Day of Date of Exam: 09/29/20 Subjective Subjective: Pt is a 70 year old female admitted for sepsis due to combination of gangrenous gallbladder and urosepsis. She was recently extubated and breathing has improved, she has been able to be switched from CPAP to now requiring 4L nasal cannula. This morning she continues to moan and not follow verbal commands. CT head/brain overnight revealed no acute findings. Believe her mental status is a result of severe infection and may take some time to recover, will continue to closely monitor patient. Labs/imaging: Wbc 9.4, Hgb 7.4, Plt 96, Na 148, K 3.2, Cr 0.84, Glucose 149, AST 123, ALT 54, ALP 144, CRP 23, ABG: PH 7.52, PC02 31, P02 134, HC03 25, 02 SAT 99%, FI02 35%. CT brain: Normal CT scan of brain. Will continue to wean oxygen as tolerated and well as IV antibiotics Fortaz and Levaquin. Hemoglobin remains on the lower limits, will transfuse 1 unit packed red blood cells and repeat H/H. Pt does have edema of the left upper extremity, will get U/S to evaluate. Otherwise continue current treatment plan. Monitor and follow up labs/imaging in the morning. Past Medical Family Social History Past Med/Fam/Surg Hx: No changes since H&P Allergies: Allergies codeine Allergy (Verified 09/22/20 20:50) Review of Systems ROS: No change since H&P Vital Signs and I&O's Vital Signs: Temperature 98.2 F Pulse Rate [Left] 127 Pulse Rate 144 Respiratory Rate 22 Blood Pressure [Right Arm] 160/87 Blood Pressure [Left Arm] 172/101 Blood Pressure 180/98 O2 Sat by Pulse Oximetry 95 Intake and Output: Intake & Output 09/26/20 09/27/20 09/28/20 09/29/20 23:59 23:59 23:59 23:59 Intake Total 4300.0 / 4300.0 2523 / 2523 3647 / 3647 838 / 838 Output Total 1274 / 1274 1717 / 1717 600 / 600 185 / 185 Balance 3026.0 / 3026.0 806 / 806 3047 / 3047 653 / 653 Physical Exam Oriented: Normal and Other (not responsive .) Eyes: Normal Ear: Normal Nose: Normal Throat: Normal Respiratory: OTHER (on respirator) Cardiovascular: Normal : Normal Auscultation: Bowel Sounds: Decreased (soft abdomen . BS hypoactive ..) Tenderness: Diffuse Skin: Normal Musculoskeletal: Normal Psychiatric: Normal Mood Description: Calm Affect: Normal Speech Pattern: Inappropriate Laboratory and Diagnostics Result Diagrams: 09/29/20 05:14 09/29/20 05:14 Labs: 09/26/20 05:16 Blood Blood Culture - Preliminary 09/26/20 05:10 Blood Blood Culture - Preliminary 09/22/20 20:30 Blood Blood Culture - Final 09/22/20 20:05 Blood Blood Culture - Final 09/24/20 11:46 Urine,Clean Catch Urine Culture - Final Laboratory WBC 9.4 X10^3/uL (3.6-10.0) 09/29/20 05:14 RBC 2.73 X10^6/uL (3.5-5.4) L 09/29/20 05:14 Hgb 7.4 g/dL (12.0-16.0) L 09/29/20 05:14 Hct 22.6 % (36.0-47.0) L 09/29/20 05:14 MCV 82.9 fL (80.0-100.0) 09/29/20 05:14 MCH 27.0 pg (27.0-34.0) 09/29/20 05:14 MCHC 32.5 g/dL (33.0-35.0) L 09/29/20 05:14 RDW 20.7 % (11.6-16.5) H 09/29/20 05:14 Plt Count 96 X10^3/uL (150.0-450.0) L 09/29/20 05:14 Plt Count Comment Decreased (ADEQUATE) A 09/29/20 05:14 MPV 10.4 fL (7.4-11.0) 09/29/20 05:14 Neut % (Auto) 62.7 % (42.0-75.0) 09/29/20 05:14 Lymph % (Auto) 23.8 % (21.0-51.0) 09/29/20 05:14 Drew % (Auto) 10.5 % (0.0-13.0) 09/29/20 05:14 Eos % (Auto) 1.1 % (0.9-2.9) 09/29/20 05:14 Baso % (Auto) 1.9 % (0.2-1.0) H 09/29/20 05:14 Neut # (Auto) 5.9 x10^3/uL (2.2-4.8) H 09/29/20 05:14 Lymph # (Auto) 2.2 X10^3/uL (1.3-2.9) 09/29/20 05:14 Drew # (Auto) 1.0 x10^3/uL (0.3-0.8) H 09/29/20 05:14 Eos # (Auto) 0.1 x10^3/uL (0.0-0.2) 09/29/20 05:14 Baso # (Auto) 0.2 X10^3/uL (0.0-0.1) H 09/29/20 05:14 Absolute Nucleated RBC 2.4 /100WBC 09/29/20 05:14 Total Counted 100 09/29/20 05:14 Neutrophils % (Manual) 64 % (39-76) 09/29/20 05:14 Band Neutrophils % 3 % (0-10) 09/29/20 05:14 Lymphocytes % (Manual) 20 % (13-43) 09/29/20 05:14 Monocytes % (Manual) 11 % (4-9) H 09/29/20 05:14 Eosinophils % (Manual) 1 % (0-6) 09/29/20 05:14 Basophils % (Manual) 1 % (0-1) 09/29/20 05:14 Metamyelocytes % 2 09/26/20 05:16 Myelocytes % 4 09/25/20 16:22 Promyelocytes % Cancelled 09/24/20 04:00 Nucleated RBCs 3 09/29/20 05:14 Atypical Lymphocytes Rare A 09/27/20 04:05 Blast Cells Cancelled 09/24/20 04:00 Smudge Cells Cancelled 09/24/20 04:00 Toxic Granulation Cancelled 09/24/20 04:00 Dohle Bodies Cancelled 09/24/20 04:00 Isabela Rods Cancelled 09/24/20 04:00 Plt Clumps, EDTA Cancelled 09/24/20 04:00 Giant Platelets Cancelled 09/24/20 04:00 Plt Morphology Comment Normal (NORMAL) 09/29/20 05:14 RBC Morphology Abnormal (NORMAL) A 09/29/20 05:14 Dimorphic RBCs Cancelled 09/24/20 04:00 Polychromasia Cancelled 09/24/20 04:00 Hypochromasia Cancelled 09/24/20 04:00 Poikilocytosis Cancelled 09/24/20 04:00 Basophilic Stippling Cancelled 09/24/20 04:00 Anisocytosis 1+ A 09/29/20 05:14 Microcytosis Cancelled 09/24/20 04:00 Macrocytosis Cancelled 09/24/20 04:00 Spherocytes Cancelled 09/24/20 04:00 Pappenheimer Bodies Cancelled 09/24/20 04:00 Sickle Cells Cancelled 09/24/20 04:00 Target Cells Cancelled 09/24/20 04:00 Tear Drop Cells Cancelled 09/24/20 04:00 Ovalocytes Cancelled 09/24/20 04:00 Stomatocytes Cancelled 09/24/20 04:00 Helmet Cells Cancelled 09/24/20 04:00 [place] Bodies Cancelled 09/24/20 04:00 [place] Rings Cancelled 09/24/20 04:00 [place] Cells Cancelled 09/24/20 04:00 Crenated Cell Cancelled 09/24/20 04:00 Acanthocytes (Spur) Cancelled 09/24/20 04:00 Rouleaux Cancelled 09/24/20 04:00 Schistocytes Cancelled 09/24/20 04:00 ESR 7 MM/HOUR (0-20) 09/22/20 20:05 PT 18.4 SECONDS (11.8-14.3) 09/25/20 16:22 INR Target Range - 09/25/20 16:22 INR 1.58 (0.8-1.3) H 09/25/20 16:22 APTT 39.5 SECONDS (22.9-36.5) H 09/25/20 16:22 PTT Comment - 09/25/20 16:22 Sample Site Lr 09/29/20 06:15 ABG pH 7.520 (7.35-7.45) H 09/29/20 06:15 ABG pCO2 31.0 mmHg (35.0-45.0) L 09/29/20 06:15 ABG pO2 134.0 mmHg (80.0-100.0) H 09/29/20 06:15 ABG HCO3 25.3 mmol/L (22-26) 09/29/20 06:15 ABG O2 Saturation 99.0 % (90-100) 09/29/20 06:15 ABG Base Excess 2.9 mmol/L (-2.0-2.0) H 09/29/20 06:15 Isreal Test Pos 09/29/20 06:15 A-a Gradient 77.0 mmHg 09/29/20 06:15 FiO2 35.0 09/29/20 06:15 Blood Gas Comments zane Dorman 09/29/20 06:15 Sodium 148 mmol/L (136-145) H 09/29/20 05:14 Corrected Sodium 149 mmol/L (136-145) H 09/29/20 05:14 Potassium 3.2 mmol/L (3.5-5.1) L 09/29/20 05:14 Chloride 113 mmol/L (98-107) H 09/29/20 05:14 Carbon Dioxide 24.0 mmol/L (21-32) 09/29/20 05:14 BUN 21 mg/dL (7-18) H 09/29/20 05:14 Creatinine 0.84 mg/dL (0.55-1.02) 09/29/20 05:14 Est GFR (MDRD) Af Amer > 60 (>60) 09/29/20 05:14 Est GFR (MDRD) Non-Af > 60 (>60) 09/29/20 05:14 Glucose 149 mg/dL (65-99) H 09/29/20 05:14 POC Glucose (mg/dL) 137 mg/dL (65-99) H 09/29/20 12:03 Lactic Acid 1.7 mmol/L (0.4-2.0) 09/26/20 08:47 Calcium 10.1 mg/dL (8.5-10.1) 09/29/20 05:14 Corrected Calcium 11.1 mg/dL (8.5-10.1) H 09/29/20 05:14 Magnesium 1.6 mg/dL (1.7-2.9) L 09/29/20 05:14 Total Bilirubin 0.40 mg/dL (0.2-1.0) 09/29/20 05:14 AST 81 Units/L (15-37) H 09/29/20 05:14 ALT 47 Units/L (12-78) 09/29/20 05:14 Alkaline Phosphatase 180 Units/L (46-116) H 09/29/20 05:14 Lactate Dehydrogenase 4395 Units/L (81-234) H 09/22/20 20:05 Creatine Kinase 326 Units/L (26-192) H 09/26/20 08:47 CK-MB (CK-2) 2.5 ng/mL (0-4.0) 09/26/20 08:47 CK/CKMB % Calc 0.8 % (<4) 09/26/20 08:47 Troponin I 0.13 ng/mL (0-1.5) 09/26/20 08:47 C-Reactive Protein 23.80 mg/L (0-3.0) H 09/29/20 05:14 B-Natriuretic Peptide 37.5 pg/mL (0-79) 09/27/20 04:05 Total Protein 4.9 g/dL (6.4-8.2) L 09/29/20 05:14 Albumin 2.7 g/dL (3.4-5.0) L 09/29/20 05:14 Globulin 2.2 g/dL (2.5-4.5) L 09/29/20 05:14 Albumin/Globulin Ratio 1.2 Ratio (1.1-2.1) 09/29/20 05:14 Prealbumin 8.7 mg/dL (18-35.7) L 09/27/20 04:05 Amylase 15 Units/L (25-115) L 09/24/20 04:10 Lipase 193 Units/L (73-393) 09/24/20 04:10 Specimen Type Catherized urine 09/27/20 14:03 Urine Color Dark yellow (YELLOW) 09/27/20 14:03 Urine Appearance Hazy (CLEAR) 09/27/20 14:03 Urine pH 5.0 (5.0 - 8.0) 09/27/20 14:03 Ur Specific [place] 1.020 (1.000-1.030) 09/27/20 14:03 Urine Protein 3+ (NEGATIVE) 09/27/20 14:03 Urine Glucose (UA) Negative (NEGATIVE) 09/27/20 14:03 Urine Ketones Negative (NEGATIVE) 09/27/20 14:03 Urine Occult Blood 5+ (NEGATIVE) 09/27/20 14:03 Urine Nitrite Negative (NEGATIVE) 09/27/20 14:03 Urine Bilirubin Negative (NEGATIVE) 09/27/20 14:03 Urine Urobilinogen Normal (NORMAL) 09/27/20 14:03 Ur Leukocyte Esterase Negative (NEGATIVE) 09/27/20 14:03 Urine RBC 30-50 /HPF (0-3) A 09/27/20 14:03 Urine WBC None seen /HPF (0-5) 09/27/20 14:03 Ur Squamous Epith Cells Negative /HPF (NEGATIVE) 09/27/20 14:03 Uric Acid Crystals Few /HPF (NEGATIVE) 09/27/20 14:03 Urine Bacteria Negative /HPF (NEGATIVE) 09/27/20 14:03 Ur Culture Indicated? No/not indicated 09/27/20 14:03 Urine Opiates Screen Negative (NEG=<300) 09/22/20 21:01 Urine Methadone Screen Negative (NEG=<300) 09/22/20 21:01 Ur Barbiturates Screen Negative (NEG=<200) 09/22/20 21:01 Ur Phencyclidine Scrn Negative (NEG=<25) 09/22/20 21:01 Ur Amphetamines Screen Negative (NEG=<1000) 09/22/20 21:01 U Benzodiazepines Scrn Negative (NEG=<200) 09/22/20 21:01 Urine Cocaine Screen Negative (NEG=<300) 09/22/20 21:01 U Marijuana (THC) Screen Negative (NEG=<50) 09/22/20 21:01 SARS-CoV-2 (PCR) Negative (NEGATIVE) 09/23/20 00:08 Influenza Type A (PCR) Negative (NEGATIVE) 09/23/20 00:08 Influenza Type B (PCR) Negative (NEGATIVE) 09/23/20 00:08 RSV (PCR) Negative (NEGATIVE) 09/23/20 00:08 Tissue Pathology To follow 09/25/20 15:24 Blood Type A POSITIVE 09/25/20 22:05 Antibody Screen Negative 09/25/20 17:30 Crossmatch See Detail 09/25/20 17:30 Tx React Prelim Eval Inconclusive 09/25/20 22:05 Tx React Symptoms Fever 09/25/20 22:05 Reaction Path Interpret Febrile reaction 09/25/20 22:[address] 09/25/20 22:05 Blood Bank Comment Performed by P2 09/25/20 22:05 Plan (1) Acute cholecystitis: Status: Acute Plan: NS AT KVO, LEVAQUIN 500MG IV DAILY, FORTAZ 1G IV Q8H, ZOFRAN 4MG IV Q4H PRN NAUSEA, CLINIMIX FOR NUTRITION AT 40 ML/HR. (2) Acute UTI: Status: Acute Plan: NS AT KVO, LEVAQUIN 500MG IV DAILY, FORTAZ 1G IV Q8H, ZOFRAN 4MG IV Q4H PRN NAUSEA, CLINIMIX FOR NUTRITION AT 40 ML/HR. (3) Sepsis: Status: Acute Qualifiers: Sepsis acute organ dysfunction status: unspecified Sepsis type: sepsis due to unspecified organism Qualified Code(s): A41.9 - Sepsis, unspecified orga nis (4) Intractable nausea and vomiting: Status: Acute
[2020-09-29] MEDS: ATIVAN INJ 2 MG VIAL IVP PRN ×2 (14:46→21:00)
[2020-09-29] MEDS: MORPHINE SULFATE INJ 2 MG INJ IVP PRN ×4 (14:49→23:55)
[2020-09-29] MEDS: OFIRMEV IV 1000 MG VIAL 1,000 MG/100 ML VIAL IV PRN (17:25)
--- NOTE | 2020-09-29 18:15 | VAS ---
EXAM: LEFT UPPER EXTREMITY VENOUS DOPPLER ULTRASOUNDHISTORY: Pain. Swelling. Bruising.TECHNIQUE: The upper extremity veins were interrogated with a high-frequency linear transducer, employing grayscale imaging, duplex Doppler and color flow Doppler imaging.COMPARISON: None available.FINDINGS:There is no loss of compressibility, intraluminal color flow Doppler signal, or loss of duplex Doppler signal seen within the internal jugular vein, subclavian vein, axillary vein, brachial vein, radial vein, ulnar vein, basilic veins, and cephalic vein.No abnormal fluid collection is seen. No evidence for gross axillary lymphadenopathy is seen.Note: DVT could be missed early in the disease when clot burden is minimal. For patients with moderate and high pretest probability of DVT and negative ultrasound, the [place] [employer] clinical guidelines recommend testing with a d-dimer assay or repeat ultrasound in 5-7 days. If symptoms worsen, the Society of radiologists in ultrasound recommend repeating ultrasound even earlier.IMPRESSION:1. No evidence for DVT or SVT.2. No abnormal fluid collection seen.Electronically signed by: Samir Roberts (Sep 29, 2020 18:13:52)
[2020-09-30] MEDS ORDERED: NS 250 ML IV 250 ML IV SCH (01:00)
[2020-09-30] MEDS: D5 1/2 NS 1000 ML 1,000 ML IV SCH ×3 (01:06→17:00)
[2020-09-30] MEDS ORDERED: ATIVAN INJ 2 MG VIAL ONE (02:45)
[2020-09-30] MEDS: ATIVAN INJ 2 MG VIAL IVP PRN (03:00)
[2020-09-30] MEDS: MORPHINE SULFATE INJ 2 MG INJ IVP PRN ×5 (03:00→21:15)
[2020-09-30] MEDS: FORTAZ or TAZICEF VIAL INJ 1 G in NS 100 ML IV + SPIKE MINIBAG* 100 ML IV SCH (05:27)
[2020-09-30 06:02] LABS: ABG BASE EXCESS 2.9 mmol/L (-2.0-2.0)
[2020-09-30 06:03] LABS: ABG ALLEN TEST POS
[2020-09-30] MEDS: APRESOLINE INJ 20 MG VIAL IVP PRN ×2 (07:30→18:08)
[2020-09-30] MEDS: LEVAQUIN PREMIX IV 500 MG 500 MG/100 ML BAG IV SCH (08:00)
--- NOTE | 2020-09-30 08:06 | RAD ---
HISTORYHYPOXIASTUDYCHEST, 1 [id number] cardiomediastinal silhouette is stable. Right IJ central venous catheter unchanged. Hypoventilatory exam with worsening bilateral airspace opacities. The bony thorax appears intact.IMPRESSIONWorsening bilateral airspace opacities which may be seen with edema or pneumonia. Recommend follow-up to resolution.Electronically signed by: MICHELLE MENDOZA (Sep 30, 2020 08:04:59)
[2020-09-30 08:17] LABS: BASOPHILS # (AUTO) 0.4 X10^3/uL (0.0-0.1); BASOPHILS % (AUTO) 2.3 % (0.2-1.0); EOSINOPHILS # (AUTO) 0.1 x10^3/uL (0.0-0.2); EOSINOPHILS % (AUTO) 0.5 % (0.9-2.9); HEMATOCRIT 29.2 % (36.0-47.0); HEMOGLOBIN 9.4 g/dL (12.0-16.0); LYMPHOCYTES # (AUTO) 4.6 X10^3/uL (1.3-2.9); LYMPHOCYTES % (AUTO) 24.7 % (21.0-51.0); MEAN CORPUSCULAR HEMOGLOBIN 27.3 pg (27.0-34.0); MEAN CORPUSCULAR HGB CONC 32.3 g/dL (33.0-35.0); MEAN CORPUSCULAR VOLUME 84.4 fL (80.0-100.0); MEAN PLATELET VOLUME 10.3 fL (7.4-11.0); MONOCYTES # (AUTO) 1.7 x10^3/uL (0.3-0.8); MONOCYTES % (AUTO) 9.2 % (0.0-13.0); NEUTROPHILS # (AUTO) 11.7 x10^3/uL (2.2-4.8); NEUTROPHILS % (AUTO) 63.3 % (42.0-75.0); PLATELET COUNT 131 X10^3/uL (150.0-450.0); RED BLOOD COUNT 3.46 X10^6/uL (3.5-5.4); RED CELL DISTRIBUTION WIDTH 19.4 % (11.6-16.5); WHITE BLOOD COUNT 18.5 X10^3/uL (3.6-10.0)
[2020-09-30 08:21] LABS: ALANINE AMINOTRANSFERASE 37 Units/L (12-78); ALBUMIN 2.9 g/dL (3.4-5.0); ALKALINE PHOSPHATASE 176 Units/L (46-116); ASPARTATE AMINO TRANSFERASE 57 Units/L (15-37); BLOOD UREA NITROGEN 16 mg/dL (7-18); CALCIUM 11.5 mg/dL (8.5-10.1); CHLORIDE 111 mmol/L (98-107); COR CA(FOR HYPOALB) 12.4 mg/dL (8.5-10.1); COR NA(FOR HYPERGLY) 149 mmol/L (136-145); CREATININE 0.81 mg/dL (0.55-1.02); SODIUM 147 mmol/L (136-145); TOTAL PROTEIN 5.6 g/dL (6.4-8.2); eGFR NON BLACK RACES > 60 (>60)
[2020-09-30 08:31] LABS: BAND NEUTROPHILS % 10 % (0-10); METAMYELOCYTES % 1; MYELOCYTES % 1; PROMYELOCYTES % 1
[2020-09-30 08:32] LABS: ANISOCYTOSIS SLIGHT; PLATELET MORPHOLOGY COMMENT NORMAL (NORMAL)
[2020-09-30] MEDS ORDERED: IVERMECTIN PO ONE (09:00)
[2020-09-30] MEDS: ALBUMIN HUMAN 25%- 100 ML 100 ML IV SCH (09:57)
[2020-09-30] MEDS ORDERED: DULCOLAX SUPPOSITORY 10 MG RECTAL ONE (11:25)
[2020-09-30] MEDS ORDERED: PHARMACY CONSULT - VANCOMYCIN XX SCH (12:00)
[2020-09-30] MEDS: LASIX IVP SCH ×2 (12:09→22:04)
--- NOTE | 2020-09-30 12:39 | PCM.PROG ---
Progress Note - Progress Note for Day of Date of Exam: 09/26/20 - Subjective Subjective: IS BEING TREATED FOR ACUTE UTI, ACUTE CHOLECYSTITIS, SEPSIS, AND ABDOMINAL PAIN. AFTER OBTAINING IMAGING, IT WAS DETERMINED THAT PATIENTS GALLBLADDER NEEDED TO BE REMOVED. SHE IS DAY 1 S/P CHOLECYSTECTOMY. OTHER THAN SOME ISSUES WITH HER BLOOD PRESSURE, PATIENT WENT THROUGH SURGERY WELL. A [place] DRAIN PLACED. PATIENT DID LOSE 450 TO 500 ML BLOOD DURING PROCEDURE. AFTER THE PROCEDURE, PATIENT WAS TRANSPORTED BACK TO THE FLOOR. SHORTLY AFTER ARRIVAL TO THE FLOOR, THERE WAS A MODERATE ABOUNT OF BLOODY DRAINAGE NOTED TO DRESSING TO THE RIGHT LOWER QUADRANT AND IN THE [place] DRAIN. HER SATURATIONS WERE NOTED TO BE 88% ON 50% VM AT 6LPM. HER BLOOD PRESSURE WAS NOTED TO BE 78/50. WAS NOTIFIED. A DOPAMINE DRIP AND NORMAL SALINE BOLUS WAS STARTED AND THE DECISION WAS MADE TO INTUBATE PATIENT. PATIENT WAS EVENTUALLY TAKEN BACK TO THE OR TO RULE OUT ACTIVE BLEEDING. A MODERATE AMOUNT OF CLOTS WERE NOTED IN THE ABDOMEN ABOVE THE LIVER AND ON THE RIGHT GUTTER, HO WEVER, NO ACTIVE BLEEDING WAS NOTED. ABDOMEN WAS THOROUGHLY IRRIGATED. [place] DRAIN WAS LEFT IN PLACE. SHE WAS GIVEN ONE UNIT OF BLOOD. SHE REMAINS ON THE MECHANICAL VENT THIS MORNING. HER SETTINGS THIS MORNING ARE: A/C, VENT RATE 12, TIDAL VOLUME 550, PEEP 5, FI02 35. SHE HAS HAD FEVER THROUGHOUT THE NIGHT. ON EXAMINATION, SHE IS SLIGHTLY TACHYCARDIC WITH HR 99-110 BPM. BILATERAL LUNGS ARE NOTED WITH DIMINISHED LUNG SOUNDS THROUGHOUT. ABDOMEN IS ROUND, SOFT, AND NOTED TO HAVE DECREASED BOWEL SOUNDS IN ALL QUADRANTS. THERE IS A [place] DRAIN NOTED WITH A SMALL AMOUNT OF BLOODY DRAINAGE. DRESSINGS TO ABDOMEN ARE DRY AND INTACT WITH NO S/SX INFECTION NOTED. HER VITALS THIS MORNING ARE: [id number]/63. LABS WERE OBTAINED. ABNORMAL LAB VALUES INCLUDE THE FOLLOWING: WBC 24.2, HGB 9.6, HCT 30.7, PLT COUNT 140, CHLORIDE 112, CARBON DIOXIDE 19.3, BUN 28, CREATININE 1.32, GLUCOSE 189, AST 628, ALT 83, ALK PHOS 251, TOTAL PROTEIN 4.5, ALBUMIN 1.9. AN ABG WAS OBTAINED AND REVEALED: PH 7.410, PC02 32, P02 166, HC03 20.3, 02 SAT 100, BASE EXCESS -3.5, A-A GRADIENT 151, FI02 50. BLOOD AND URINE CULTURES ARE PENDING. A CHEST XRAY WAS OBTAINED AND REVEALED: No acute cardiopulmonary abnormalities other than mild airspace disease probably atelectasis in the left lower lobe retrocardiac region. ET tube and right internal jugular line are in good position. SHE IS CURRENTLY RECEIVING NORMAL SALINE, LEVAQUIN 500MG IV DAILY, FORTAZ 1G IV Q8H, VISTARIL 25-50MG Q8H PRN, ZOFRAN 4MG IV Q4H PRN, PHENERGAN 6.25MG IM PRN, THE POTASSIUM AND MAGNESIUM PROTOCOLS, TPN, DILAUDID 1MG IV Q3H PRN, DOPAMINE DRIP, AND A VERSED DRIP. WE WILL CONTINUE WITH CURRENT PLAN OF CARE TODAY. OTHERWISE, WE PLAN TO FOLLOW UP WITH AM LABS AND CONTINUE TO MONITOR. TIME SPENT ON CLINICAL ASSESSMENT, REVIEWING LABS AND IMAGING, DECISION MAKING, AND DOCUMENTATION GREATER THAN 75 MINUTES. - Past Medical Family Social History Past Med/Fam/Surg Hx: No changes since H&P Allergies: Allergies codeine Allergy (Verified 09/22/20 20:50) - Review of Systems ROS: No change since H&P - Vital Signs and I&O's Vital Signs: Temperature 100.2 F Pulse Rate [Left] 129 Pulse Rate 144 Respiratory Rate 24 Blood Pressure [Right Arm] 153/79 Blood Pressure [Left Arm] 172/101 Blood Pressure 164/89 O2 Sat by Pulse Oximetry 92 Intake and Output: Intake & Output 09/28/20 09/29/20 09/30/20 10/01/20 11:59 11:59 11:59 11:59 Intake Total 3863 / 3863 2258 / 2258 3690 / 3690 Output Total 1592 / 1592 765 / 765 2200 / 2200 Balance 2271 / 2271 1493 / 1493 1490 / 1490 - Physical Exam Oriented: Unable to test, Other (not responsive .) Eyes: Normal Ear: Normal Nose: Normal Throat: Normal Respiratory: Diminished Cardiovascular: Normal : Normal Auscultation: Bowel Sounds: Decreased (soft abdomen . BS hypoactive ..) Palpation: Normal Tenderness: Diffuse Skin: Normal Musculoskeletal: Normal Psychiatric: Normal Mood Description: Calm Affect: Normal Speech Pattern: Artificially Ventilated - Laboratory and Diagnostics Result Diagrams: 09/30/20 07:52 09/30/20 07:52 Labs: 09/26/20 05:16 Blood Blood Culture - Preliminary 09/26/20 05:10 Blood Blood Culture - Preliminary 09/22/20 20:30 Blood Blood Culture - Final 09/22/20 20:05 Blood Blood Culture - Final 09/24/20 11:46 Urine,Clean Catch Urine Culture - Final Laboratory WBC 18.5 X10^3/uL (3.6-10.0) H D 09/30/20 07:52 RBC 3.46 X10^6/uL (3.5-5.4) L 09/30/20 07:52 Hgb 9.4 g/dL (12.0-16.0) L D 09/30/20 07:52 Hct 29.2 % (36.0-47.0) L 09/30/20 07:52 MCV 84.4 fL (80.0-100.0) 09/30/20 07:52 MCH 27.3 pg (27.0-34.0) 09/30/20 07:52 MCHC 32.3 g/dL (33.0-35.0) L 09/30/20 07:52 RDW 19.4 % (11.6-16.5) H 09/30/20 07:52 Plt Count 131 X10^3/uL (150.0-450.0) L 09/30/20 07:52 Plt Count Comment Decreased (ADEQUATE) A 09/30/20 07:52 MPV 10.3 fL (7.4-11.0) 09/30/20 07:52 Neut % (Auto) 63.3 % (42.0-75.0) 09/30/20 07:52 Lymph % (Auto) 24.7 % (21.0-51.0) 09/30/20 07:52 [place] % (Auto) 9.2 % (0.0-13.0) 09/30/20 07:52 Eos % (Auto) 0.5 % (0.9-2.9) L 09/30/20 07:52 Baso % (Auto) 2.3 % (0.2-1.0) H 09/30/20 07:52 Neut # (Auto) 11.7 x10^3/uL (2.2-4.8) H 09/30/20 07:52 Lymph # (Auto) 4.6 X10^3/uL (1.3-2.9) H 09/30/20 07:52 [place] # (Auto) 1.7 x10^3/uL (0.3-0.8) H 09/30/20 07:52 Eos # (Auto) 0.1 x10^3/uL (0.0-0.2) 09/30/20 07:52 Baso # (Auto) 0.4 X10^3/uL (0.0-0.1) H 09/30/20 07:52 Absolute Nucleated RBC 3.3 /100WBC 09/30/20 07:52 Total Counted 100 09/30/20 07:52 Neutrophils % (Manual) 59 % (39-76) 09/30/20 07:52 Band Neutrophils % 10 % (0-10) 09/30/20 07:52 Lymphocytes % (Manual) 26 % (13-43) 09/30/20 07:52 Monocytes % (Manual) 3 % (4-9) L 09/30/20 07:52 Eosinophils % (Manual) 1 % (0-6) 09/29/20 05:14 Basophils % (Manual) 1 % (0-1) 09/29/20 05:14 Metamyelocytes % 1 09/30/20 07:52 Myelocytes % 1 09/30/20 07:52 Promyelocytes % 1 09/30/20 07:52 Nucleated RBCs 8 09/30/20 07:52 Atypical Lymphocytes Rare A 09/27/20 04:05 Blast Cells Cancelled 09/24/20 04:00 Smudge Cells Cancelled 09/24/20 04:00 Toxic Granulation Cancelled 09/24/20 04:00 Dohle Bodies Cancelled 09/24/20 04:00 Isabela Rods Cancelled 09/24/20 04:00 Plt Clumps, EDTA Cancelled 09/24/20 04:00 Giant Platelets Cancelled 09/24/20 04:00 Plt Morphology Comment Normal (NORMAL) 09/30/20 07:52 RBC Morphology Abnormal (NORMAL) A 09/30/20 07:52 Dimorphic RBCs Cancelled 09/24/20 04:00 Polychromasia Cancelled 09/24/20 04:00 Hypochromasia Cancelled 09/24/20 04:00 Poikilocytosis Cancelled 09/24/20 04:00 Basophilic Stippling Cancelled 09/24/20 04:00 Anisocytosis Slight A 09/30/20 07:52 Microcytosis Cancelled 09/24/20 04:00 Macrocytosis Cancelled 09/24/20 04:00 Spherocytes Cancelled 09/24/20 04:00 Pappenheimer Bodies Cancelled 09/24/20 04:00 Sickle Cells Cancelled 09/24/20 04:00 Target Cells Cancelled 09/24/20 04:00 Tear Drop Cells Cancelled 09/24/20 04:00 Ovalocytes Cancelled 09/24/20 04:00 Stomatocytes Cancelled 09/24/20 04:00 Helmet Cells Cancelled 09/24/20 04:00 [employer] Bodies Cancelled 09/24/20 04:00 [place] Rings Cancelled 09/24/20 04:00 [place] Cells Cancelled 09/24/20 04:00 Crenated Cell Cancelled 09/24/20 04:00 Acanthocytes (Spur) Cancelled 09/24/20 04:00 Rouleaux Cancelled 09/24/20 04:00 Schistocytes Cancelled 09/24/20 04:00 Smear Path Review See note 09/24/20 04:00 ESR 7 MM/HOUR (0-20) 09/22/20 20:05 PT 18.4 SECONDS (11.8-14.3) 09/25/20 16:22 INR Target Range - 09/25/20 16:22 INR 1.58 (0.8-1.3) H 09/25/20 16:22 APTT 39.5 SECONDS (22.9-36.5) H 09/25/20 16:22 PTT Comment - 09/25/20 16:22 Sample Site Lr 09/30/20 05:58 ABG pH 7.650 (7.35-7.45) H* 09/30/20 05:58 ABG pCO2 20.0 mmHg (35.0-45.0) L 09/30/20 05:58 ABG pO2 129.0 mmHg (80.0-100.0) H 09/30/20 05:58 ABG HCO3 22.0 mmol/L (22-26) 09/30/20 05:58 ABG O2 Saturation 99.0 % (90-100) 09/30/20 05:58 ABG Base Excess 2.9 mmol/L (-2.0-2.0) H 09/30/20 05:58 Isreal Test Pos 09/30/20 05:58 A-a Gradient 103.0 mmHg 09/30/20 05:58 FiO2 36.0 09/30/20 05:58 Blood Gas Comments Kirit well cb 09/30/20 05:58 Sodium 147 mmol/L (136-145) H 09/30/20 07:52 Corrected Sodium 149 mmol/L (136-145) H 09/30/20 07:52 Potassium 3.2 mmol/L (3.5-5.1) L 09/30/20 07:52 Chloride 111 mmol/L (98-107) H 09/30/20 07:52 Carbon Dioxide 23.0 mmol/L (21-32) 09/30/20 07:52 BUN 16 mg/dL (7-18) 09/30/20 07:52 Creatinine 0.81 mg/dL (0.55-1.02) 09/30/20 07:52 Est GFR (MDRD) Af Amer > 60 (>60) 09/30/20 07:52 Est GFR (MDRD) Non-Af > 60 (>60) 09/30/20 07:52 Glucose 170 mg/dL (65-99) H 09/30/20 07:52 POC Glucose (mg/dL) 166 mg/dL (65-99) H 09/30/20 12:04 Lactic Acid 1.7 mmol/L (0.4-2.0) 09/26/20 08:47 Calcium 11.5 mg/dL (8.5-10.1) H 09/30/20 07:52 Corrected Calcium 12.4 mg/dL (8.5-10.1) H 09/30/20 07:52 Magnesium 1.6 mg/dL (1.7-2.9) L 09/29/20 05:14 Total Bilirubin 0.80 mg/dL (0.2-1.0) 09/30/20 07:52 AST 57 Units/L (15-37) H 09/30/20 07:52 ALT 37 Units/L (12-78) 09/30/20 07:52 Alkaline Phosphatase 176 Units/L (46-116) H 09/30/20 07:52 Lactate Dehydrogenase 4395 Units/L (81-234) H 09/22/20 20:05 Creatine Kinase 326 Units/L (26-192) H 09/26/20 08:47 CK-MB (CK-2) 2.5 ng/mL (0-4.0) 09/26/20 08:47 CK/CKMB % Calc 0.8 % (<4) 09/26/20 08:47 Troponin I 0.13 ng/mL (0-1.5) 09/26/20 08:47 C-Reactive Protein 74.30 mg/L (0-3.0) H 09/30/20 07:52 B-Natriuretic Peptide 37.5 pg/mL (0-79) 09/27/20 04:05 Total Protein 5.6 g/dL (6.4-8.2) L 09/30/20 07:52 Albumin 2.9 g/dL (3.4-5.0) L 09/30/20 07:52 Globulin 2.7 g/dL (2.5-4.5) 09/30/20 07:52 Albumin/Globulin Ratio 1.1 Ratio (1.1-2.1) 09/30/20 07:52 Prealbumin 8.7 mg/dL (18-35.7) L 09/27/20 04:05 Amylase 15 Units/L (25-115) L 09/24/20 04:10 Lipase 193 Units/L (73-393) 09/24/20 04:10 Specimen Type Catherized urine 09/27/20 14:03 Urine Color Dark yellow (YELLOW) 09/27/20 14:03 Urine Appearance Hazy (CLEAR) 09/27/20 14:03 Urine pH 5.0 (5.0 - 8.0) 09/27/20 14:03 Ur Specific Ama 1.020 (1.000-1.030) 09/27/20 14:03 Urine Protein 3+ (NEGATIVE) 09/27/20 14:03 Urine Glucose (UA) Negative (NEGATIVE) 09/27/20 14:03 Urine Ketones Negative (NEGATIVE) 09/27/20 14:03 Urine Occult Blood 5+ (NEGATIVE) 09/27/20 14:03 Urine Nitrite Negative (NEGATIVE) 09/27/20 14:03 Urine Bilirubin Negative (NEGATIVE) 09/27/20 14:03 Urine Urobilinogen Normal (NORMAL) 09/27/20 14:03 Ur Leukocyte Esterase Negative (NEGATIVE) 09/27/20 14:03 Urine RBC 30-50 /HPF (0-3) A 09/27/20 14:03 Urine WBC None seen /HPF (0-5) 09/27/20 14:03 Ur Squamous Epith Cells Negative /HPF (NEGATIVE) 09/27/20 14:03 Uric Acid Crystals Few /HPF (NEGATIVE) 09/27/20 14:03 Urine Bacteria Negative /HPF (NEGATIVE) 09/27/20 14:03 Ur Culture Indicated? No/not indicated 09/27/20 14:03 Urine Opiates Screen Negative (NEG=<300) 09/22/20 21:01 Urine Methadone Screen Negative (NEG=<300) 09/22/20 21:01 Ur Barbiturates Screen Negative (NEG=<200) 09/22/20 21:01 Ur Phencyclidine Scrn Negative (NEG=<25) 09/22/20 21:01 Ur Amphetamines Screen Negative (NEG=<1000) 09/22/20 21:01 U Benzodiazepines Scrn Negative (NEG=<200) 09/22/20 21:01 Urine Cocaine Screen Negative (NEG=<300) 09/22/20 21:01 U Marijuana (THC) Screen Negative (NEG=<50) 09/22/20 21:01 SARS-CoV-2 (PCR) Negative (NEGATIVE) 09/23/20 00:08 Influenza Type A (PCR) Negative (NEGATIVE) 09/23/20 00:08 Influenza Type B (PCR) Negative (NEGATIVE) 09/23/20 00:08 RSV (PCR) Negative (NEGATIVE) 09/23/20 00:08 SARS CoV-2 RNA Rapid MIKHAIL Negative (NEGATIVE) 09/30/20 10:02 Tissue Pathology To follow 09/25/20 15:24 Blood Type A POSITIVE 09/29/20 12:51 Antibody Screen Negative 09/29/20 12:51 Crossmatch See Detail 09/29/20 12:51 Tx React Prelim Eval Inconclusive 09/25/20 22:05 Tx React Symptoms Fever 09/25/20 22:05 Reaction Path Interpret Febrile reaction 09/25/20 22:[address] 09/25/20 22:05 Blood Bank Comment Performed by Andrea 09/25/20 22:05 - Plan (1) Acute cholecystitis Status: Acute Plan: DAY 1 S/P LAPCHOLE, NORMAL SALINE, LEVAQUIN 500MG IV DAILY, FORTAZ 1G IV Q8H, VISTARIL 25-50MG Q8H PRN, ZOFRAN 4MG IV Q4H PRN, PHENERGAN 6.25MG IM PRN, THE POTASSIUM AND MAGNESIUM PROTOCOLS, TPN, DILAUDID 1MG IV Q3H PRN, DOPAMINE DRIP, AND A VERSED DRIP. (2) Acute UTI Status: Acute (3) Sepsis Status: Acute Qualifiers: Sepsis type: sepsis due to unspecified organism Sepsis acute organ dysfunction status: unspecified Qualified Code(s): A41.9 - Sepsis, unspecified organism (4) Intractable nausea and vomiting Status: Acute
--- NOTE | 2020-09-30 12:53 | PCM.PROG ---
Progress Note - Progress Note for Day of Date of Exam: 09/27/20 - Subjective Subjective: IS BEING TREATED FOR ACUTE UTI, ACUTE CHOLECYSTITIS, SEPSIS, AND ABDOMINAL PAIN. SHE IS DAY 2 S/P LAPCHOLE AND EXPLORATORY LAPAROTOMY. DUE TO COMPLICATIONS AFTER SURGERY, SHE WAS INTUBATED. SHE REMAINS ON THE MECHANICAL VENT THIS MORNING. HER SETTINGS THIS MORNING ARE: SIMV 12, TIDAL VOLUME 550, PEEP 5, PRESSURE SUPPORT 10, FI02 28. HER SATURATIONS HAVE BEEN 96-99% THIS MORNING AND THROUGHOUT THE NIGHT. SHE HAS HAD FEVER THROUGHOUT THE NIGHT. ON EXAMINATION, [place] [address]-690 BPM. BILATERAL LUNGS ARE NOTED WITH DIMINISHED LUNG SOUNDS THROUGHOUT. SHE IS TACHYPNEIC WELL. ABDOMEN IS ROUND, SOFT, AND NOTED TO HAVE DECREASED BOWEL SOUNDS IN ALL QUADRANTS. THERE IS A [place] DRAIN NOTED WITH A SMALL AMOUNT OF BLOODY DRAINAGE. DRESSINGS TO ABDOMEN ARE DRY AND INTACT WITH NO S/SX INFECTION NOTED. HER VITALS THIS MORNING ARE: [id number]%-172/92. LABS WERE OBTAINED. ABNORMAL LAB VALUES INCLUDE THE FOLLOWING: WBC 17.1, RBC 3.16, HGB 8.6, HCT 26.4, PLT COUNT 114, SODIUM 146, POTASSIUM 3.3, CHLORIDE 113, BUN 26, GLUCOSE 199, AST 290, ALK PHOS 205, CRP 74.60, TOTAL PROTEIN 4.9, ALBUMIN 2.3, PREALBUMIN 8.7. AN ABG WAS OBTAINED AND REVEALED: PH 7.470, PC02 34, P02 96, HC03 24.7, 02 SAT 98, BASE EXCESS 1.4, A-A GRADIENT 61, FI02 28.0. BLOOD AND URINE CULTURES ARE PENDING. A CHEST XRAY WAS OBTAINED AND REVEALED: ETT in right internal jugular central venous catheter in good position. No acute infiltrates are observed and there is no change compared to the last study of September 26, 2020. SHE IS CURRENTLY RECEIVING NORMAL SALINE, LEVAQUIN 500MG IV DAILY, FORTAZ 1G IV Q8H, VISTARIL 25-50MG Q8H PRN, ZOFRAN 4MG IV Q4H PRN, PHENERGAN 6.25MG IM PRN, THE POTASSIUM AND MAGNESIUM PROTOCOLS, TPN, DILAUDID 1MG IV Q3H PRN, DOPAMINE DRIP, AND A VERSED DRIP. WE WILL CHANGE HER IV FLUIDS TO D51/2NS AT 125 ML/HR, D/C TPN, ADD LOPRESSOR 5MG IV Q4H PRN. WE WILL ATTEMPT TO EXTUBATE PATIENT TODAY. OTHERWISE, WE PLAN TO FOLLOW UP WITH AM LABS AND CONTINUE TO MONITOR. TIME SPENT ON CLINICAL ASSESSMENT, REVIEWING LABS AND IMAGING, DECISION MAKING, AND DOC UMENTATION GREATER THAN 75 MINUTES. - Past Medical Family Social History Past Med/Fam/Surg Hx: No changes since H&P Allergies: Allergies codeine Allergy (Verified 09/22/20 20:50) - Review of Systems ROS: No change since H&P - Vital Signs and I&O's Vital Signs: Temperature 100.2 F Pulse Rate [Left] 129 Pulse Rate 144 Respiratory Rate 24 Blood Pressure [Right Arm] 153/79 Blood Pressure [Left Arm] 172/101 Blood Pressure 164/89 O2 Sat by Pulse Oximetry 92 Intake and Output: Intake & Output 09/28/20 09/29/20 09/30/20 10/01/20 11:59 11:59 11:59 11:59 Intake Total 3863 / 3863 2258 / 2258 3690 / 3690 Output Total 1592 / 1592 765 / 765 2200 / 2200 Balance 2271 / 2271 1493 / 1493 1490 / 1490 - Physical Exam Oriented: Unable to test, Other (not responsive .) Eyes: Normal Ear: Normal Nose: Normal Throat: Normal Respiratory: Diminished Cardiovascular: Normal : Normal Auscultation: Bowel Sounds: Decreased (soft abdomen . BS hypoactive ..) Tenderness: Diffuse Skin: Normal Musculoskeletal: Normal Psychiatric: Normal Mood Description: Calm Affect: Normal Speech Pattern: Artificially Ventilated - Laboratory and Diagnostics Result Diagrams: 09/30/20 07:52 09/30/20 07:52 Labs: 09/26/20 05:16 Blood Blood Culture - Preliminary 09/26/20 05:10 Blood Blood Culture - Preliminary 09/22/20 20:30 Blood Blood Culture - Final 09/22/20 20:05 Blood Blood Culture - Final 09/24/20 11:46 Urine,Clean Catch Urine Culture - Final Laboratory WBC 18.5 X10^3/uL (3.6-10.0) H D 09/30/20 07:52 RBC 3.46 X10^6/uL (3.5-5.4) L 09/30/20 07:52 Hgb 9.4 g/dL (12.0-16.0) L D 09/30/20 07:52 Hct 29.2 % (36.0-47.0) L 09/30/20 07:52 MCV 84.4 fL (80.0-100.0) 09/30/20 07:52 MCH 27.3 pg (27.0-34.0) 09/30/20 07:52 MCHC 32.3 g/dL (33.0-35.0) L 09/30/20 07:52 RDW 19.4 % (11.6-16.5) H 09/30/20 07:52 Plt Count 131 X10^3/uL (150.0-450.0) L 09/30/20 07:52 Plt Count Comment Decreased (ADEQUATE) A 09/30/20 07:52 MPV 10.3 fL (7.4-11.0) 09/30/20 07:52 Neut % (Auto) 63.3 % (42.0-75.0) 09/30/20 07:52 Lymph % (Auto) 24.7 % (21.0-51.0) 09/30/20 07:52 [place] % (Auto) 9.2 % (0.0-13.0) 09/30/20 07:52 Eos % (Auto) 0.5 % (0.9-2.9) L 09/30/20 07:52 Baso % (Auto) 2.3 % (0.2-1.0) H 09/30/20 07:52 Neut # (Auto) 11.7 x10^3/uL (2.2-4.8) H 09/30/20 07:52 Lymph # (Auto) 4.6 X10^3/uL (1.3-2.9) H 09/30/20 07:52 [place] # (Auto) 1.7 x10^3/uL (0.3-0.8) H 09/30/20 07:52 Eos # (Auto) 0.1 x10^3/uL (0.0-0.2) 09/30/20 07:52 Baso # (Auto) 0.4 X10^3/uL (0.0-0.1) H 09/30/20 07:52 Absolute Nucleated RBC 3.3 /100WBC 09/30/20 07:52 Total Counted 100 09/30/20 07:52 Neutrophils % (Manual) 59 % (39-76) 09/30/20 07:52 Band Neutrophils % 10 % (0-10) 09/30/20 07:52 Lymphocytes % (Manual) 26 % (13-43) 09/30/20 07:52 Monocytes % (Manual) 3 % (4-9) L 09/30/20 07:52 Eosinophils % (Manual) 1 % (0-6) 09/29/20 05:14 Basophils % (Manual) 1 % (0-1) 09/29/20 05:14 Metamyelocytes % 1 09/30/20 07:52 Myelocytes % 1 09/30/20 07:52 Promyelocytes % 1 09/30/20 07:52 Nucleated RBCs 8 09/30/20 07:52 Atypical Lymphocytes Rare A 09/27/20 04:05 Blast Cells Cancelled 09/24/20 04:00 Smudge Cells Cancelled 09/24/20 04:00 Toxic Granulation Cancelled 09/24/20 04:00 Dohle Bodies Cancelled 09/24/20 04:00 Isabela Rods Cancelled 09/24/20 04:00 Plt Clumps, EDTA Cancelled 09/24/20 04:00 Giant Platelets Cancelled 09/24/20 04:00 Plt Morphology Comment Normal (NORMAL) 09/30/20 07:52 RBC Morphology Abnormal (NORMAL) A 09/30/20 07:52 Dimorphic RBCs Cancelled 09/24/20 04:00 Polychromasia Cancelled 09/24/20 04:00 Hypochromasia Cancelled 09/24/20 04:00 Poikilocytosis Cancelled 09/24/20 04:00 Basophilic Stippling Cancelled 09/24/20 04:00 Anisocytosis Slight A 09/30/20 07:52 Microcytosis Cancelled 09/24/20 04:00 Macrocytosis Cancelled 09/24/20 04:00 Spherocytes Cancelled 09/24/20 04:00 Pappenheimer Bodies Cancelled 09/24/20 04:00 Sickle Cells Cancelled 09/24/20 04:00 Target Cells Cancelled 09/24/20 04:00 Tear Drop Cells Cancelled 09/24/20 04:00 Ovalocytes Cancelled 09/24/20 04:00 Stomatocytes Cancelled 09/24/20 04:00 Helmet Cells Cancelled 09/24/20 04:00 [employer] Bodies Cancelled 09/24/20 04:00 [place] Rings Cancelled 09/24/20 04:00 [place] Cells Cancelled 09/24/20 04:00 Crenated Cell Cancelled 09/24/20 04:00 Acanthocytes (Spur) Cancelled 09/24/20 04:00 Rouleaux Cancelled 09/24/20 04:00 Schistocytes Cancelled 09/24/20 04:00 Smear Path Review See note 09/24/20 04:00 ESR 7 MM/HOUR (0-20) 09/22/20 20:05 PT 18.4 SECONDS (11.8-14.3) 09/25/20 16:22 INR Target Range - 09/25/20 16:22 INR 1.58 (0.8-1.3) H 09/25/20 16:22 APTT 39.5 SECONDS (22.9-36.5) H 09/25/20 16:22 PTT Comment - 09/25/20 16:22 Sample Site Lr 09/30/20 05:58 ABG pH 7.650 (7.35-7.45) H* 09/30/20 05:58 ABG pCO2 20.0 mmHg (35.0-45.0) L 09/30/20 05:58 ABG pO2 129.0 mmHg (80.0-100.0) H 09/30/20 05:58 ABG HCO3 22.0 mmol/L (22-26) 09/30/20 05:58 ABG O2 Saturation 99.0 % (90-100) 09/30/20 05:58 ABG Base Excess 2.9 mmol/L (-2.0-2.0) H 09/30/20 05:58 Isreal Test Pos 09/30/20 05:58 A-a Gradient 103.0 mmHg 09/30/20 05:58 FiO2 36.0 09/30/20 05:58 Blood Gas Comments Kirit well cb 09/30/20 05:58 Sodium 147 mmol/L (136-145) H 09/30/20 07:52 Corrected Sodium 149 mmol/L (136-145) H 09/30/20 07:52 Potassium 3.2 mmol/L (3.5-5.1) L 09/30/20 07:52 Chloride 111 mmol/L (98-107) H 09/30/20 07:52 Carbon Dioxide 23.0 mmol/L (21-32) 09/30/20 07:52 BUN 16 mg/dL (7-18) 09/30/20 07:52 Creatinine 0.81 mg/dL (0.55-1.02) 09/30/20 07:52 Est GFR (MDRD) Af Amer > 60 (>60) 09/30/20 07:52 Est GFR (MDRD) Non-Af > 60 (>60) 09/30/20 07:52 Glucose 170 mg/dL (65-99) H 09/30/20 07:52 POC Glucose (mg/dL) 166 mg/dL (65-99) H 09/30/20 12:04 Lactic Acid 1.7 mmol/L (0.4-2.0) 09/26/20 08:47 Calcium 11.5 mg/dL (8.5-10.1) H 09/30/20 07:52 Corrected Calcium 12.4 mg/dL (8.5-10.1) H 09/30/20 07:52 Magnesium 1.6 mg/dL (1.7-2.9) L 09/29/20 05:14 Total Bilirubin 0.80 mg/dL (0.2-1.0) 09/30/20 07:52 AST 57 Units/L (15-37) H 09/30/20 07:52 ALT 37 Units/L (12-78) 09/30/20 07:52 Alkaline Phosphatase 176 Units/L (46-116) H 09/30/20 07:52 Lactate Dehydrogenase 4395 Units/L (81-234) H 09/22/20 20:05 Creatine Kinase 326 Units/L (26-192) H 09/26/20 08:47 CK-MB (CK-2) 2.5 ng/mL (0-4.0) 09/26/20 08:47 CK/CKMB % Calc 0.8 % (<4) 09/26/20 08:47 Troponin I 0.13 ng/mL (0-1.5) 09/26/20 08:47 C-Reactive Protein 74.30 mg/L (0-3.0) H 09/30/20 07:52 B-Natriuretic Peptide 37.5 pg/mL (0-79) 09/27/20 04:05 Total Protein 5.6 g/dL (6.4-8.2) L 09/30/20 07:52 Albumin 2.9 g/dL (3.4-5.0) L 09/30/20 07:52 Globulin 2.7 g/dL (2.5-4.5) 09/30/20 07:52 Albumin/Globulin Ratio 1.1 Ratio (1.1-2.1) 09/30/20 07:52 Prealbumin 8.7 mg/dL (18-35.7) L 09/27/20 04:05 Amylase 15 Units/L (25-115) L 09/24/20 04:10 Lipase 193 Units/L (73-393) 09/24/20 04:10 Specimen Type Catherized urine 09/27/20 14:03 Urine Color Dark yellow (YELLOW) 09/27/20 14:03 Urine Appearance Hazy (CLEAR) 09/27/20 14:03 Urine pH 5.0 (5.0 - 8.0) 09/27/20 14:03 Ur Specific [place] 1.020 (1.000-1.030) 09/27/20 14:03 Urine Protein 3+ (NEGATIVE) 09/27/20 14:03 Urine Glucose (UA) Negative (NEGATIVE) 09/27/20 14:03 Urine Ketones Negative (NEGATIVE) 09/27/20 14:03 Urine Occult Blood 5+ (NEGATIVE) 09/27/20 14:03 Urine Nitrite Negative (NEGATIVE) 09/27/20 14:03 Urine Bilirubin Negative (NEGATIVE) 09/27/20 14:03 Urine Urobilinogen Normal (NORMAL) 09/27/20 14:03 Ur Leukocyte Esterase Negative (NEGATIVE) 09/27/20 14:03 Urine RBC 30-50 /HPF (0-3) A 09/27/20 14:03 Urine WBC None seen /HPF (0-5) 09/27/20 14:03 Ur Squamous Epith Cells Negative /HPF (NEGATIVE) 09/27/20 14:03 Uric Acid Crystals Few /HPF (NEGATIVE) 09/27/20 14:03 Urine Bacteria Negative /HPF (NEGATIVE) 09/27/20 14:03 Ur Culture Indicated? No/not indicated 09/27/20 14:03 Urine Opiates Screen Negative (NEG=<300) 09/22/20 21:01 Urine Methadone Screen Negative (NEG=<300) 09/22/20 21:01 Ur Barbiturates Screen Negative (NEG=<200) 09/22/20 21:01 Ur Phencyclidine Scrn Negative (NEG=<25) 09/22/20 21:01 Ur Amphetamines Screen Negative (NEG=<1000) 09/22/20 21:01 U Benzodiazepines Scrn Negative (NEG=<200) 09/22/20 21:01 Urine Cocaine Screen Negative (NEG=<300) 09/22/20 21:01 U Marijuana (THC) Screen Negative (NEG=<50) 09/22/20 21:01 SARS-CoV-2 (PCR) Negative (NEGATIVE) 09/23/20 00:08 Influenza Type A (PCR) Negative (NEGATIVE) 09/23/20 00:08 Influenza Type B (PCR) Negative (NEGATIVE) 09/23/20 00:08 RSV (PCR) Negative (NEGATIVE) 09/23/20 00:08 SARS CoV-2 RNA Rapid MIKHAIL Negative (NEGATIVE) 09/30/20 10:02 Tissue Pathology To follow 09/25/20 15:24 Blood Type A POSITIVE 09/29/20 12:51 Antibody Screen Negative 09/29/20 12:51 Crossmatch See Detail 09/29/20 12:51 Tx React Prelim Eval Inconclusive 09/25/20 22:05 Tx React Symptoms Fever 09/25/20 22:05 Reaction Path Interpret Febrile reaction 09/25/20 22:[address] 09/25/20 22:05 Blood Bank Comment Performed by P2 09/25/20 22:05 - Plan (1) Acute cholecystitis Status: Acute Plan: DAY 2 S/P LAPCHOLE, D51/2 NS AT 125ML/HR, LEVAQUIN 500MG IV DAILY, FORTAZ 1G IV Q8H, VISTARIL 25-50MG Q8H PRN, ZOFRAN 4MG IV Q4H PRN, PHENERGAN 6.25MG IM PRN, THE POTASSIUM AND MAGNESIUM PROTOCOLS, TPN, DILAUDID 1MG IV Q3H PRN, DOPAMINE DRIP, AND A VERSED DRIP. (2) Acute UTI Status: Acute (3) Sepsis Status: Acute Qualifiers: Sepsis type: sepsis due to unspecified organism Sepsis acute organ dysfunction status: unspecified Qualified Code(s): A41.9 - Sepsis, unspecified organism (4) Intractable nausea and vomiting Status: Acute
[2020-09-30] MEDS: ZOSYN VIAL 3.375 GRAMS 3.375 G in NS 100 ML IV + SPIKE MINIBAG* 100 ML IV SCH ×2 (13:00→17:00)
[2020-09-30] MEDS: VANCOMYCIN IV *PREMIX 1.25 G/250 ML BAG 1.25 G/250 ML PIGGYBACK IV SCH ×2 (13:12→22:06)
[2020-09-30] MEDS: GEODON INJ IM PRN (13:20)
[2020-09-30] MEDS: DIFLUCAN 200 MG IV PREMIX* 200 MG/100 ML BAG IV SCH (15:10)
[2020-09-30] MEDS: K-RIDER 10 MEQ/NS 100 ML 10 MEQ/100 ML BAG IV PRN (22:41)
[2020-09-30] MEDS ORDERED: OFIRMEV IV 1000 MG VIAL 1,000 MG/100 ML VIAL IV ONE (23:20)
[2020-09-30] MEDS: OFIRMEV IV 1000 MG VIAL 1,000 MG/100 ML VIAL IV PRN (23:33)
[2020-10-01] MEDS: ZOSYN VIAL 3.375 GRAMS 3.375 G in NS 100 ML IV + SPIKE MINIBAG* 100 ML IV SCH ×2 (00:21→05:35)
[2020-10-01] MEDS: K-RIDER 10 MEQ/NS 100 ML 10 MEQ/100 ML BAG IV PRN ×3 (00:22→04:41)
[2020-10-01] MEDS: D5 1/2 NS 1000 ML 1,000 ML IV SCH ×2 (02:06→11:10)
[2020-10-01] MEDS: MORPHINE SULFATE INJ 2 MG INJ IVP PRN ×4 (02:07→20:30)
--- NOTE | 2020-10-01 05:26 | RAD ---
PROCEDURE: Chest X-ray 1 View .HISTORY: Short of breath.TECHNIQUE: AP view .COMPARISON: 09/30/2020.TECHNICAL QUALITY: Satisfactory .FINDINGS:Right internal jugular central venous line tip projected over the right atrium.Unremarkable cardiomediastinal silhouette.Mild prominent central vascularity similar to previous study.No pulmonary consolidation, masses, pleural fluid, or pneumothorax.IMPRESSION:Unchanged mildly prominent central vascularity with no evidence of edema or pneumonia on current study.Electronically signed by: Sarath Gonzalez (Oct 01, 2020 05:24:39)
[2020-10-01 06:34] LABS: ABG BASE EXCESS 7.3 mmol/L (-2.0-2.0); ABG HCO3 28.5 mmol/L (22-26)
[2020-10-01 06:35] LABS: ABG ALLEN TEST POS
[2020-10-01 07:03] LABS: BASOPHILS # (AUTO) 0.6 X10^3/uL (0.0-0.1); BASOPHILS % (AUTO) 3.2 % (0.2-1.0); EOSINOPHILS # (AUTO) 0.1 x10^3/uL (0.0-0.2); EOSINOPHILS % (AUTO) 0.7 % (0.9-2.9); HEMATOCRIT 27.4 % (36.0-47.0); LYMPHOCYTES # (AUTO) 4.1 X10^3/uL (1.3-2.9); LYMPHOCYTES % (AUTO) 20.8 % (21.0-51.0); MEAN CORPUSCULAR HEMOGLOBIN 27.5 pg (27.0-34.0); MEAN CORPUSCULAR VOLUME 83.4 fL (80.0-100.0); MEAN PLATELET VOLUME 10.6 fL (7.4-11.0); MONOCYTES # (AUTO) 1.3 x10^3/uL (0.3-0.8); MONOCYTES % (AUTO) 6.8 % (0.0-13.0); NEUTROPHILS # (AUTO) 13.3 x10^3/uL (2.2-4.8); NEUTROPHILS % (AUTO) 68.5 % (42.0-75.0); PLATELET COUNT 143 X10^3/uL (150.0-450.0); RED BLOOD COUNT 3.29 X10^6/uL (3.5-5.4); RED CELL DISTRIBUTION WIDTH 19.3 % (11.6-16.5); WHITE BLOOD COUNT 19.5 X10^3/uL (3.6-10.0)
[2020-10-01 07:11] LABS: PREALBUMIN 10.5 mg/dL (18-35.7)
[2020-10-01 07:17] LABS: ALANINE AMINOTRANSFERASE 24 Units/L (12-78); ALKALINE PHOSPHATASE 149 Units/L (46-116); ASPARTATE AMINO TRANSFERASE 52 Units/L (15-37); BLOOD UREA NITROGEN 20 mg/dL (7-18); CALCIUM 12.2 mg/dL (8.5-10.1); CARBON DIOXIDE 24.8 mmol/L (21-32); CHLORIDE 110 mmol/L (98-107); COR NA(FOR HYPERGLY) 149 mmol/L (136-145); CREATININE 1.03 mg/dL (0.55-1.02); SODIUM 148 mmol/L (136-145); TOTAL PROTEIN 5.7 g/dL (6.4-8.2); eGFR NON BLACK RACES 57 (>60)
[2020-10-01] MEDS: OFIRMEV IV 1000 MG VIAL 1,000 MG/100 ML VIAL IV PRN (07:59)
[2020-10-01 08:00] LABS: BAND NEUTROPHILS % 6 % (0-10); METAMYELOCYTES % 2; MYELOCYTES % 2; PLATELET MORPHOLOGY COMMENT NORMAL (NORMAL)
[2020-10-01] MEDS: ALBUMIN HUMAN 25%- 100 ML 100 ML IV SCH (08:28)
[2020-10-01] MEDS: DIFLUCAN 200 MG IV PREMIX* 200 MG/100 ML BAG IV SCH (08:30)
[2020-10-01] MEDS: VANCOMYCIN IV *PREMIX 1.25 G/250 ML BAG 1.25 G/250 ML PIGGYBACK IV SCH ×2 (08:31→21:30)
[2020-10-01] MEDS: LEVAQUIN PREMIX IV 500 MG 500 MG/100 ML BAG IV SCH (08:31)
[2020-10-01] MEDS ORDERED: ALBUMIN HUMAN 25%- 100 ML 100 ML IV ONE (10:19)
--- NOTE | 2020-10-01 10:48 | RAD ---
HISTORYABDOMINAL DISTENTION, POST GB SXSTUDYKUBCOMPARISONCT abdomen September 24, 2020.FINDINGSEvaluation of the abdomen demonstrates a normal bowel gas pattern. . No small bowel distension is observed. Surgical clips are seen the right upper quadrant from cholecystectomy skin carline in the right upper quadrant from open cholecystectomy with a surgical drain in the subhepatic region. Skin carline are also seen in the left abdomen from probable site of laparoscopic port. Sutures are also seen in the left upper quadrant in the area of the stomach and these were present preoperatively on the CT scan of September 24, 2020. Multiple phleboliths are seen in the pelvis. Subcutaneous edema is seen over the right upper abdomen probably rib secondary to surgery. No pathological soft tissue mass or calcification can be observed. The bony structures are grossly intact.IMPRESSIONPostsurgical changes from what appears to be laparoscopic in then open cholecystectomy with surgical drain in place in the right upper quadrant, prior surgery left upper quadrant but no evidence of obstruction.Electronically signed by: CHAN MARTINEZ (Oct 01, 2020 10:47:34)
[2020-10-01] MEDS ORDERED: PROCALAMINE 3 % 1,000 ML IV SCH ×2 (11:00)
[2020-10-01] MEDS: ZOFRAN INJ 4 MG VIAL IVP PRN ×2 (11:04→17:18)
[2020-10-01] MEDS ORDERED: HumuLIN R SUBCUT PRN (12:00)
[2020-10-01] MEDS ORDERED: LASIX IVP ONE (12:00)
[2020-10-01] MEDS: [UNRECOGNIZED DRUG - OTHER] IV SCH ×7 (12:40)
[2020-10-01] MEDS: MAGNESIUM SULFATE IV SCH ×7 (12:40)
[2020-10-01] MEDS: CLINIMIX IV SCH ×7 (12:40)
--- NOTE | 2020-10-01 13:47 | PCM.PROG ---
Progress Note - Progress Note for Day of Date of Exam: 09/30/20 - Subjective Subjective: IS BEING TREATED FOR ACUTE UTI, ACUTE CHOLECYSTITIS, SEPSIS, AND ABDOMINAL PAIN. SHE IS DAY 5 S/P LAPCHOLE AND EXPLORATORY LAPAROTOMY. SHE WAS EXTUBATED ON WEDNESDAY. SHE IS NO LONGER ON A DOPAMINE DRIP. SHE IS CURRENTLY ON NASAL CANNULA AT 4 LPM THIS MORNING. HER SATURATIONS HAVE BEEN 90-97% THIS MORNING AND THROUGHOUT THE NIGHT. SHE HAS HAD FEVER THROUGHOUT THE NIGHT. ON EXAMINATION, SHE CONTINUES TO BE TACHYCARDIC WITH HR 110-130 BPM. BILATERAL LUNGS ARE NOTED WITH DIMINISHED LUNG SOUNDS THROUGHOUT. ABDOMEN IS ROUND, SOFT, AND NOTED TO HAVE DECREASED BOWEL SOUNDS IN ALL QUADRANTS. THERE IS A [place] DRAIN NOTED WITH A MODERATE AMOUNT OF BLOODY DRAINAGE. DRESSINGS TO ABDOMEN ARE DRY AND INTACT WITH NO S/SX INFECTION NOTED. THERE IS 1+ EDEMA TO UPPER AND LOWER EXTREMITIES. HER VITALS THIS MORNING ARE: 100.8-130-22-91%-152/72. LABS WERE OBTAINED. ABNORMAL LAB VALUES INCLUDE THE FOLLOWING: WBC 18.5, RBC 3.46, HGB 9.4, HCT 29.2, PLT COUNG 131, SODIUM 147, POTASSIUM 3.2, CHLORIDE 111, GLUCOSE 170, CALCIUM 11.5, CORRECTED CALCIUM 12.4, AST 57, ALK PHOS 176, CRP 74.30, TOTAL PROTEIN 5.6, ALBUMIN 2.9. AN ABG WAS OBTAINED AND REVEALED: PH 7.650, PC02 20, P02 129, HC03 22.0, 02 SAT 99, BASE EXCESS 2.9, A-A GRADIENT 103, FI02 36. BLOOD AND URINE CULTURES ARE PENDING. A CHEST XRAY WAS OBTAINED THIS MORNING AND REVEALED: Worsening bilateral airspace opacities which may be seen with edema or pneumonia. SHE IS CURRENTLY RECEIVING D51/2 NORMAL SALINE AT 125 ML/HR, LEVAQUIN 500MG IV DAILY, FORTAZ 1G IV Q8H, ALBUMIN 25% IV DAILY, VISTARIL 25-50MG Q8H PRN, ZOFRAN 4MG IV Q4H PRN, PHENERGAN 6.25MG IM PRN, THE POTASSIUM AND MAGNESIUM PROTOCOLS, TPN, LOPRESSOR 5MG IV Q4H PRN, HYDRALAZINE 5MG IV Q4H PRN, HUMULIN R SLIDING SCALE, MORPHINE 2MG IV Q3H PRN. WE WILL DISCONTINUE THE FORTAZ AND START ZOSYN 3.375G IV TID, VANCOMYCIN 1.25G IV Q12H, DIFLUCAN 200MG IV DAILY, CHANGE IV FLUIDS TO NS AT 65 ML/HR, DISCONTINUE THE ATIVAN AND ADD GEODON 20MG IM BID PRN, ADD DULCOLAX SUPPOSITORY X 1 DOSE. WE WILL REPEAT BLOOD AND DRAINAGE CULTURES. WE WILL ALSO SWAB FOR COVID-19. OTHERWISE, WE PLAN TO FOLLOW UP WITH AM LABS AND CONTINUE TO MONITOR. WILL CONTINUE TO FOLLOW PATIENT. TIME SPENT ON CLINICAL ASSESSMENT, REVIEWING LABS AND IMAGING, DECISION MAKING, AND DOCUMENTATION GREATER THAN 75 MINUTES. - Past Medical Family Social History Past Med/Fam/Surg Hx: No changes since H&P Allergies: Allergies codeine Allergy (Verified 09/22/20 20:50) - Review of Systems ROS: No change since H&P - Vital Signs and I&O's Vital Signs: Temperature 99.1 F Pulse Rate [Left] 115 Pulse Rate 144 Respiratory Rate 24 Blood Pressure [Right Arm] 157/81 Blood Pressure [Left Arm] 172/101 Blood Pressure 164/89 O2 Sat by Pulse Oximetry 90 Intake and Output: Intake & Output 09/29/20 09/30/20 10/01/20 10/02/20 11:59 11:59 11:59 11:59 Intake Total 2258 / 2258 3690 / 3690 3340 / 3340 Output Total 765 / 765 2200 / 2200 5120 / 5120 Balance 1493 / 1493 1490 / 1490 -1780 / -1780 - Physical Exam Oriented: Unable to test, Other (not responsive .) Eyes: Normal Ear: Normal Nose: Normal Throat: Normal Respiratory: Diminished Cardiovascular: Normal : Normal Auscultation: Bowel Sounds: Decreased (soft abdomen . BS hypoactive ..) Palpation: Normal Tenderness: Diffuse Skin: Normal Musculoskeletal: Normal Psychiatric: Normal Mood Description: Calm Affect: Normal Speech Pattern: Inappropriate - Laboratory and Diagnostics Result Diagrams: 10/01/20 05:24 10/01/20 05:24 Labs: 09/30/20 11:50 Drainage - Preliminary 09/26/20 05:16 Blood Blood Culture - Final 09/26/20 05:10 Blood Blood Culture - Final 09/22/20 20:30 Blood Blood Culture - Final 09/22/20 20:05 Blood Blood Culture - Final 09/24/20 11:46 Urine,Clean Catch Urine Culture - Final Laboratory WBC 19.5 X10^3/uL (3.6-10.0) H 10/01/20 05:24 RBC 3.29 X10^6/uL (3.5-5.4) L 10/01/20 05:24 Hgb 9.0 g/dL (12.0-16.0) L 10/01/20 05:24 Hct 27.4 % (36.0-47.0) L 10/01/20 05:24 MCV 83.4 fL (80.0-100.0) 10/01/20 05:24 MCH 27.5 pg (27.0-34.0) 10/01/20 05:24 MCHC 33.0 g/dL (33.0-35.0) 10/01/20 05:24 RDW 19.3 % (11.6-16.5) H 10/01/20 05:24 Plt Count 143 X10^3/uL (150.0-450.0) L 10/01/20 05:24 Plt Count Comment Decreased (ADEQUATE) A 10/01/20 05:24 MPV 10.6 fL (7.4-11.0) 10/01/20 05:24 Neut % (Auto) 68.5 % (42.0-75.0) 10/01/20 05:24 Lymph % (Auto) 20.8 % (21.0-51.0) L 10/01/20 05:24 [place] % (Auto) 6.8 % (0.0-13.0) 10/01/20 05:24 Eos % (Auto) 0.7 % (0.9-2.9) L 10/01/20 05:24 Baso % (Auto) 3.2 % (0.2-1.0) H 10/01/20 05:24 Neut # (Auto) 13.3 x10^3/uL (2.2-4.8) H 10/01/20 05:24 Lymph # (Auto) 4.1 X10^3/uL (1.3-2.9) H 10/01/20 05:24 [place] # (Auto) 1.3 x10^3/uL (0.3-0.8) H 10/01/20 05:24 Eos # (Auto) 0.1 x10^3/uL (0.0-0.2) 10/01/20 05:24 Baso # (Auto) 0.6 X10^3/uL (0.0-0.1) H 10/01/20 05:24 Absolute Nucleated RBC 3.7 /100WBC 10/01/20 05:24 Total Counted 100 10/01/20 05:24 Neutrophils % (Manual) 61 % (39-76) 10/01/20 05:24 Band Neutrophils % 6 % (0-10) 10/01/20 05:24 Lymphocytes % (Manual) 16 % (13-43) 10/01/20 05:24 Monocytes % (Manual) 12 % (4-9) H 10/01/20 05:24 Eosinophils % (Manual) 2 % (0-6) 10/01/20 05:24 Basophils % (Manual) 1 % (0-1) 09/29/20 05:14 Metamyelocytes % 2 10/01/20 05:24 Myelocytes % 2 10/01/20 05:24 Promyelocytes % 1 09/30/20 07:52 Nucleated RBCs 5 10/01/20 05:24 Atypical Lymphocytes Rare A 09/27/20 04:05 Blast Cells Cancelled 09/24/20 04:00 Smudge Cells Cancelled 09/24/20 04:00 Toxic Granulation Cancelled 09/24/20 04:00 Dohle Bodies Cancelled 09/24/20 04:00 Isabela Rods Cancelled 09/24/20 04:00 Plt Clumps, EDTA Cancelled 09/24/20 04:00 Giant Platelets Cancelled 09/24/20 04:00 Plt Morphology Comment Normal (NORMAL) 10/01/20 05:24 RBC Morphology Normal (NORMAL) 10/01/20 05:24 Dimorphic RBCs Cancelled 09/24/20 04:00 Polychromasia Cancelled 09/24/20 04:00 Hypochromasia Cancelled 09/24/20 04:00 Poikilocytosis Cancelled 09/24/20 04:00 Basophilic Stippling Cancelled 09/24/20 04:00 Anisocytosis Slight A 09/30/20 07:52 Microcytosis Cancelled 09/24/20 04:00 Macrocytosis Cancelled 09/24/20 04:00 Spherocytes Cancelled 09/24/20 04:00 Pappenheimer Bodies Cancelled 09/24/20 04:00 Sickle Cells Cancelled 09/24/20 04:00 Target Cells Cancelled 09/24/20 04:00 Tear Drop Cells Cancelled 09/24/20 04:00 Ovalocytes Cancelled 09/24/20 04:00 Stomatocytes Cancelled 09/24/20 04:00 Helmet Cells Cancelled 09/24/20 04:00 [place] Bodies Cancelled 09/24/20 04:00 [place] Rings Cancelled 09/24/20 04:00 [place] Cells Cancelled 09/24/20 04:00 Crenated Cell Cancelled 09/24/20 04:00 Acanthocytes (Spur) Cancelled 09/24/20 04:00 Rouleaux Cancelled 09/24/20 04:00 Schistocytes Cancelled 09/24/20 04:00 Smear Path Review See note 09/24/20 04:00 ESR 7 MM/HOUR (0-20) 09/22/20 20:05 PT 18.4 SECONDS (11.8-14.3) 09/25/20 16:22 INR Target Range - 09/25/20 16:22 INR 1.58 (0.8-1.3) H 09/25/20 16:22 APTT 39.5 SECONDS (22.9-36.5) H 09/25/20 16:22 PTT Comment - 09/25/20 16:22 Sample Site Lr 10/01/20 05:00 ABG pH 7.600 (7.35-7.45) H* 10/01/20 05:00 ABG pCO2 29.0 mmHg (35.0-45.0) L 10/01/20 05:00 ABG pO2 63.0 mmHg (80.0-100.0) L 10/01/20 05:00 ABG HCO3 28.5 mmol/L (22-26) H 10/01/20 05:00 ABG O2 Saturation 95.0 % (90-100) 10/01/20 05:00 ABG Base Excess 7.3 mmol/L (-2.0-2.0) H 10/01/20 05:00 Isreal Test Pos 10/01/20 05:00 A-a Gradient 129.0 mmHg 10/01/20 05:00 FiO2 32.0 10/01/20 05:00 Blood Gas Comments Kirit well sw 10/01/20 05:00 Sodium 148 mmol/L (136-145) H 10/01/20 05:24 Corrected Sodium 149 mmol/L (136-145) H 10/01/20 05:24 Potassium 3.3 mmol/L (3.5-5.1) L 10/01/20 05:24 Chloride 110 mmol/L (98-107) H 10/01/20 05:24 Carbon Dioxide 24.8 mmol/L (21-32) 10/01/20 05:24 BUN 20 mg/dL (7-18) H 10/01/20 05:24 Creatinine 1.03 mg/dL (0.55-1.02) H 10/01/20 05:24 Est GFR (MDRD) Af Amer > 60 (>60) 10/01/20 05:24 Est GFR (MDRD) Non-Af 57 (>60) L 10/01/20 05:24 Glucose 128 mg/dL (65-99) H 10/01/20 05:24 POC Glucose (mg/dL) 129 mg/dL (65-99) H 10/01/20 11:09 Lactic Acid 1.7 mmol/L (0.4-2.0) 09/26/20 08:47 Calcium 12.2 mg/dL (8.5-10.1) H 10/01/20 05:24 Corrected Calcium 13.0 mg/dL (8.5-10.1) H 10/01/20 05:24 Magnesium 1.6 mg/dL (1.7-2.9) L 09/29/20 05:14 Total Bilirubin 1.00 mg/dL (0.2-1.0) 10/01/20 05:24 AST 52 Units/L (15-37) H 10/01/20 05:24 ALT 24 Units/L (12-78) 10/01/20 05:24 Alkaline Phosphatase 149 Units/L (46-116) H 10/01/20 05:24 Lactate Dehydrogenase 4395 Units/L (81-234) H 09/22/20 20:05 Creatine Kinase 326 Units/L (26-192) H 09/26/20 08:47 CK-MB (CK-2) 2.5 ng/mL (0-4.0) 09/26/20 08:47 CK/CKMB % Calc 0.8 % (<4) 09/26/20 08:47 Troponin I 0.13 ng/mL (0-1.5) 09/26/20 08:47 C-Reactive Protein 115.30 mg/L (0-3.0) H 10/01/20 05:24 B-Natriuretic Peptide 37.5 pg/mL (0-79) 09/27/20 04:05 Total Protein 5.7 g/dL (6.4-8.2) L 10/01/20 05:24 Albumin 3.0 g/dL (3.4-5.0) L 10/01/20 05:24 Globulin 2.7 g/dL (2.5-4.5) 10/01/20 05:24 Albumin/Globulin Ratio 1.1 Ratio (1.1-2.1) 10/01/20 05:24 Prealbumin 10.5 mg/dL (18-35.7) L 10/01/20 05:24 Amylase 15 Units/L (25-115) L 09/24/20 04:10 Lipase 193 Units/L (73-393) 09/24/20 04:10 Specimen Type Catherized urine 09/27/20 14:03 Urine Color Dark yellow (YELLOW) 09/27/20 14:03 Urine Appearance Hazy (CLEAR) 09/27/20 14:03 Urine pH 5.0 (5.0 - 8.0) 09/27/20 14:03 Ur Specific [employer] 1.020 (1.000-1.030) 09/27/20 14:03 Urine Protein 3+ (NEGATIVE) 09/27/20 14:03 Urine Glucose (UA) Negative (NEGATIVE) 09/27/20 14:03 Urine Ketones Negative (NEGATIVE) 09/27/20 14:03 Urine Occult Blood 5+ (NEGATIVE) 09/27/20 14:03 Urine Nitrite Negative (NEGATIVE) 09/27/20 14:03 Urine Bilirubin Negative (NEGATIVE) 09/27/20 14:03 Urine Urobilinogen Normal (NORMAL) 09/27/20 14:03 Ur Leukocyte Esterase Negative (NEGATIVE) 09/27/20 14:03 Urine RBC 30-50 /HPF (0-3) A 09/27/20 14:03 Urine WBC None seen /HPF (0-5) 09/27/20 14:03 Ur Squamous Epith Cells Negative /HPF (NEGATIVE) 09/27/20 14:03 Uric Acid Crystals Few /HPF (NEGATIVE) 09/27/20 14:03 Urine Bacteria Negative /HPF (NEGATIVE) 09/27/20 14:03 Ur Culture Indicated? No/not indicated 09/27/20 14:03 Urine Opiates Screen Negative (NEG=<300) 09/22/20 21:01 Urine Methadone Screen Negative (NEG=<300) 09/22/20 21:01 Ur Barbiturates Screen Negative (NEG=<200) 09/22/20 21:01 Ur Phencyclidine Scrn Negative (NEG=<25) 09/22/20 21:01 Ur Amphetamines Screen Negative (NEG=<1000) 09/22/20 21:01 U Benzodiazepines Scrn Negative (NEG=<200) 09/22/20 21:01 Urine Cocaine Screen Negative (NEG=<300) 09/22/20 21:01 U Marijuana (THC) Screen Negative (NEG=<50) 09/22/20 21:01 SARS-CoV-2 (PCR) Negative (NEGATIVE) 09/23/20 00:08 Influenza Type A (PCR) Negative (NEGATIVE) 09/23/20 00:08 Influenza Type B (PCR) Negative (NEGATIVE) 09/23/20 00:08 RSV (PCR) Negative (NEGATIVE) 09/23/20 00:08 SARS CoV-2 RNA Rapid MIKHAIL Negative (NEGATIVE) 09/30/20 10:02 Tissue Pathology To follow 09/25/20 15:24 Blood Type A POSITIVE 09/29/20 12:51 Antibody Screen Negative 09/29/20 12:51 Crossmatch See Detail 09/29/20 12:51 Tx React Prelim Eval Inconclusive 09/25/20 22:05 Tx React Symptoms Fever 09/25/20 22:05 Reaction Path Interpret Febrile reaction 09/25/20 22:[address] 09/25/20 22:05 Blood Bank Comment Performed by Andrea 09/25/20 22:05 - Plan (1) Acute cholecystitis Status: Acute Plan: DAY 5 S/P LAPCHOLE, NS AT 65 ML/HR, LEVAQUIN 500MG IV DAILY, ZOSYN IV, VANCOMYCIN IV, DIFLUCAN 200MG IV DAILYVISTARIL 25-50MG Q8H PRN, ZOFRAN 4MG IV Q4H PRN, PHENERGAN 6.25MG IM PRN, THE POTASSIUM AND MAGNESIUM PROTOCOLS, LOPRESSOR PRN, HYDRALAZINE PRN, TPN, HUMULIN R SLIDING SCALE, MORPHINE PRN, GEODON 20MG IM BID PRN (2) Acute UTI Status: Acute (3) Sepsis Status: Acute Qualifiers: Sepsis type: sepsis due to unspecified organism Sepsis acute organ dysfunction status: unspecified Qualified Code(s): A41.9 - Sepsis, unspecified organism (4) Intractable nausea and vomiting Status: Acute (5) Pneumonia Status: Acute Qualifiers: Pneumonia type: due to unspecified organism Laterality: bilateral Lung location: unspecified part of lung Qualified Code(s): J18.9 - Pneumonia, unspecified organism
--- NOTE | 2020-10-01 13:54 | DR.PROGNOT ---
Hospital Progress Notes - Progress Note for Day of: Progress Note Date: 10/01/20 - Chief Complaint Chief Complaint: developed - History of Present Illness History of Present Illness: cleared lower lobe infiltrate . only mild response to pain stimuli . mild drainage in [place] . PH 7.6 with PCO2 29. PO2 63 . Na 148. K 3.3 BUN/Crea 30/1.03. Ca 12.2 - Past Medical Family Social History Past Med/Fam/Surg Hx: No changes since H&P Allergies: Allergies codeine Allergy (Verified 09/22/20 20:50) - Review Of Systems ROS: No change since H&P - Vital Signs Vital Signs: Temperature 99.1 F Pulse Rate [Left] 115 Pulse Rate 144 Respiratory Rate 24 Blood Pressure [Right Arm] 157/81 Blood Pressure [Left Arm] 172/101 Blood Pressure 164/89 O2 Sat by Pulse Oximetry 90 - Physical Exam Oriented: Unable to test, Other (not responsive .) Eyes: Normal Ear: Normal Nose: Normal Throat: Normal Respiratory: Diminished Cardiovascular: Normal : Normal GI:Auscultation: Decreased (soft abdomen . BS hypoactive ..) GI:Palpation: Normal GI: Tenderness: Diffuse (soft , flat abdomen with hypoactive BS .) Skin: Normal Musculoskeletal: Normal Psychiatric: Normal Mood Description: Calm Affect: Normal Speech Pattern: Inappropriate - Laboratory and Diagnostics Result Diagrams: 10/01/20 05:24 10/01/20 05:24 Labs: 09/30/20 11:50 Drainage - Preliminary 09/26/20 05:16 Blood Blood Culture - Final 09/26/20 05:10 Blood Blood Culture - Final 09/22/20 20:30 Blood Blood Culture - Final 09/22/20 20:05 Blood Blood Culture - Final 09/24/20 11:46 Urine,Clean Catch Urine Culture - Final Laboratory WBC 19.5 X10^3/uL (3.6-10.0) H 10/01/20 05:24 RBC 3.29 X10^6/uL (3.5-5.4) L 10/01/20 05:24 Hgb 9.0 g/dL (12.0-16.0) L 10/01/20 05:24 Hct 27.4 % (36.0-47.0) L 10/01/20 05:24 MCV 83.4 fL (80.0-100.0) 10/01/20 05:24 MCH 27.5 pg (27.0-34.0) 10/01/20 05:24 MCHC 33.0 g/dL (33.0-35.0) 10/01/20 05:24 RDW 19.3 % (11.6-16.5) H 10/01/20 05:24 Plt Count 143 X10^3/uL (150.0-450.0) L 10/01/20 05:24 Plt Count Comment Decreased (ADEQUATE) A 10/01/20 05:24 MPV 10.6 fL (7.4-11.0) 10/01/20 05:24 Neut % (Auto) 68.5 % (42.0-75.0) 10/01/20 05:24 Lymph % (Auto) 20.8 % (21.0-51.0) L 10/01/20 05:24 [place] % (Auto) 6.8 % (0.0-13.0) 10/01/20 05:24 Eos % (Auto) 0.7 % (0.9-2.9) L 10/01/20 05:24 Baso % (Auto) 3.2 % (0.2-1.0) H 10/01/20 05:24 Neut # (Auto) 13.3 x10^3/uL (2.2-4.8) H 10/01/20 05:24 Lymph # (Auto) 4.1 X10^3/uL (1.3-2.9) H 10/01/20 05:24 [place] # (Auto) 1.3 x10^3/uL (0.3-0.8) H 10/01/20 05:24 Eos # (Auto) 0.1 x10^3/uL (0.0-0.2) 10/01/20 05:24 Baso # (Auto) 0.6 X10^3/uL (0.0-0.1) H 10/01/20 05:24 Absolute Nucleated RBC 3.7 /100WBC 10/01/20 05:24 Total Counted 100 10/01/20 05:24 Neutrophils % (Manual) 61 % (39-76) 10/01/20 05:24 Band Neutrophils % 6 % (0-10) 10/01/20 05:24 Lymphocytes % (Manual) 16 % (13-43) 10/01/20 05:24 Monocytes % (Manual) 12 % (4-9) H 10/01/20 05:24 Eosinophils % (Manual) 2 % (0-6) 10/01/20 05:24 Basophils % (Manual) 1 % (0-1) 09/29/20 05:14 Metamyelocytes % 2 10/01/20 05:24 Myelocytes % 2 10/01/20 05:24 Promyelocytes % 1 09/30/20 07:52 Nucleated RBCs 5 10/01/20 05:24 Atypical Lymphocytes Rare A 09/27/20 04:05 Blast Cells Cancelled 09/24/20 04:00 Smudge Cells Cancelled 09/24/20 04:00 Toxic Granulation Cancelled 09/24/20 04:00 Dohle Bodies Cancelled 09/24/20 04:00 Isabela Rods Cancelled 09/24/20 04:00 Plt Clumps, EDTA Cancelled 09/24/20 04:00 Giant Platelets Cancelled 09/24/20 04:00 Plt Morphology Comment Normal (NORMAL) 10/01/20 05:24 RBC Morphology Normal (NORMAL) 10/01/20 05:24 Dimorphic RBCs Cancelled 09/24/20 04:00 Polychromasia Cancelled 09/24/20 04:00 Hypochromasia Cancelled 09/24/20 04:00 Poikilocytosis Cancelled 09/24/20 04:00 Basophilic Stippling Cancelled 09/24/20 04:00 Anisocytosis Slight A 09/30/20 07:52 Microcytosis Cancelled 09/24/20 04:00 Macrocytosis Cancelled 09/24/20 04:00 Spherocytes Cancelled 09/24/20 04:00 Pappenheimer Bodies Cancelled 09/24/20 04:00 Sickle Cells Cancelled 09/24/20 04:00 Target Cells Cancelled 09/24/20 04:00 Tear Drop Cells Cancelled 09/24/20 04:00 Ovalocytes Cancelled 09/24/20 04:00 Stomatocytes Cancelled 09/24/20 04:00 Helmet Cells Cancelled 09/24/20 04:00 [place] Bodies Cancelled 09/24/20 04:00 [place] Rings Cancelled 09/24/20 04:00 [place] Cells Cancelled 09/24/20 04:00 Crenated Cell Cancelled 09/24/20 04:00 Acanthocytes (Spur) Cancelled 09/24/20 04:00 Rouleaux Cancelled 09/24/20 04:00 Schistocytes Cancelled 09/24/20 04:00 Smear Path Review See note 09/24/20 04:00 ESR 7 MM/HOUR (0-20) 09/22/20 20:05 PT 18.4 SECONDS (11.8-14.3) 09/25/20 16:22 INR Target Range - 09/25/20 16:22 INR 1.58 (0.8-1.3) H 09/25/20 16:22 APTT 39.5 SECONDS (22.9-36.5) H 09/25/20 16:22 PTT Comment - 09/25/20 16:22 Sample Site Lr 10/01/20 05:00 ABG pH 7.600 (7.35-7.45) H* 10/01/20 05:00 ABG pCO2 29.0 mmHg (35.0-45.0) L 10/01/20 05:00 ABG pO2 63.0 mmHg (80.0-100.0) L 10/01/20 05:00 ABG HCO3 28.5 mmol/L (22-26) H 10/01/20 05:00 ABG O2 Saturation 95.0 % (90-100) 10/01/20 05:00 ABG Base Excess 7.3 mmol/L (-2.0-2.0) H 10/01/20 05:00 Isreal Test Pos 10/01/20 05:00 A-a Gradient 129.0 mmHg 10/01/20 05:00 FiO2 32.0 10/01/20 05:00 Blood Gas Comments [place]irit well sw 10/01/20 05:00 Sodium 148 mmol/L (136-145) H 10/01/20 05:24 Corrected Sodium 149 mmol/L (136-145) H 10/01/20 05:24 Potassium 3.3 mmol/L (3.5-5.1) L 10/01/20 05:24 Chloride 110 mmol/L (98-107) H 10/01/20 05:24 Carbon Dioxide 24.8 mmol/L (21-32) 10/01/20 05:24 BUN 20 mg/dL (7-18) H 10/01/20 05:24 Creatinine 1.03 mg/dL (0.55-1.02) H 10/01/20 05:24 Est GFR (MDRD) Af Amer > 60 (>60) 10/01/20 05:24 Est GFR (MDRD) Non-Af 57 (>60) L 10/01/20 05:24 Glucose 128 mg/dL (65-99) H 10/01/20 05:24 POC Glucose (mg/dL) 129 mg/dL (65-99) H 10/01/20 11:09 Lactic Acid 1.7 mmol/L (0.4-2.0) 09/26/20 08:47 Calcium 12.2 mg/dL (8.5-10.1) H 10/01/20 05:24 Corrected Calcium 13.0 mg/dL (8.5-10.1) H 10/01/20 05:24 Magnesium 1.6 mg/dL (1.7-2.9) L 09/29/20 05:14 Total Bilirubin 1.00 mg/dL (0.2-1.0) 10/01/20 05:24 AST 52 Units/L (15-37) H 10/01/20 05:24 ALT 24 Units/L (12-78) 10/01/20 05:24 Alkaline Phosphatase 149 Units/L (46-116) H 10/01/20 05:24 Lactate Dehydrogenase 4395 Units/L (81-234) H 09/22/20 20:05 Creatine Kinase 326 Units/L (26-192) H 09/26/20 08:47 CK-MB (CK-2) 2.5 ng/mL (0-4.0) 09/26/20 08:47 CK/CKMB % Calc 0.8 % (<4) 09/26/20 08:47 Troponin I 0.13 ng/mL (0-1.5) 09/26/20 08:47 C-Reactive Protein 115.30 mg/L (0-3.0) H 10/01/20 05:24 B-Natriuretic Peptide 37.5 pg/mL (0-79) 09/27/20 04:05 Total Protein 5.7 g/dL (6.4-8.2) L 10/01/20 05:24 Albumin 3.0 g/dL (3.4-5.0) L 10/01/20 05:24 Globulin 2.7 g/dL (2.5-4.5) 10/01/20 05:24 Albumin/Globulin Ratio 1.1 Ratio (1.1-2.1) 10/01/20 05:24 Prealbumin 10.5 mg/dL (18-35.7) L 10/01/20 05:24 Amylase 15 Units/L (25-115) L 09/24/20 04:10 Lipase 193 Units/L (73-393) 09/24/20 04:10 Specimen Type Catherized urine 09/27/20 14:03 Urine Color Dark yellow (YELLOW) 09/27/20 14:03 Urine Appearance Hazy (CLEAR) 09/27/20 14:03 Urine pH 5.0 (5.0 - 8.0) 09/27/20 14:03 Ur Specific [place] 1.020 (1.000-1.030) 09/27/20 14:03 Urine Protein 3+ (NEGATIVE) 09/27/20 14:03 Urine Glucose (UA) Negative (NEGATIVE) 09/27/20 14:03 Urine Ketones Negative (NEGATIVE) 09/27/20 14:03 Urine Occult Blood 5+ (NEGATIVE) 09/27/20 14:03 Urine Nitrite Negative (NEGATIVE) 09/27/20 14:03 Urine Bilirubin Negative (NEGATIVE) 09/27/20 14:03 Urine Urobilinogen Normal (NORMAL) 09/27/20 14:03 Ur Leukocyte Esterase Negative (NEGATIVE) 09/27/20 14:03 Urine RBC 30-50 /HPF (0-3) A 09/27/20 14:03 Urine WBC None seen /HPF (0-5) 09/27/20 14:03 Ur Squamous Epith Cells Negative /HPF (NEGATIVE) 09/27/20 14:03 Uric Acid Crystals Few /HPF (NEGATIVE) 09/27/20 14:03 Urine Bacteria Negative /HPF (NEGATIVE) 09/27/20 14:03 Ur Culture Indicated? No/not indicated 09/27/20 14:03 Urine Opiates Screen Negative (NEG=<300) 09/22/20 21:01 Urine Methadone Screen Negative (NEG=<300) 09/22/20 21:01 Ur Barbiturates Screen Negative (NEG=<200) 09/22/20 21:01 Ur Phencyclidine Scrn Negative (NEG=<25) 09/22/20 21:01 Ur Amphetamines Screen Negative (NEG=<1000) 09/22/20 21:01 U Benzodiazepines Scrn Negative (NEG=<200) 09/22/20 21:01 Urine Cocaine Screen Negative (NEG=<300) 09/22/20 21:01 U Marijuana (THC) Screen Negative (NEG=<50) 09/22/20 21:01 SARS-CoV-2 (PCR) Negative (NEGATIVE) 09/23/20 00:08 Influenza Type A (PCR) Negative (NEGATIVE) 09/23/20 00:08 Influenza Type B (PCR) Negative (NEGATIVE) 09/23/20 00:08 RSV (PCR) Negative (NEGATIVE) 09/23/20 00:08 SARS CoV-2 RNA Rapid MIKHAIL Negative (NEGATIVE) 09/30/20 10:02 Tissue Pathology To follow 09/25/20 15:24 Blood Type A POSITIVE 09/29/20 12:51 Antibody Screen Negative 09/29/20 12:51 Crossmatch See Detail 09/29/20 12:51 Tx React Prelim Eval Inconclusive 09/25/20 22:05 Tx React Symptoms Fever 09/25/20 22:05 Reaction Path Interpret Febrile reaction 09/25/20 22:[address] 09/25/20 22:05 Blood Bank Comment Performed by P2 09/25/20 22:05 - Assessment and Plan 1: sepsis from gangrenous GB and UTI . s/p cholecystectomy . respiratory alkalosis. to try rebreather mask. same IV ATB and PO care .. Pt is still critical with metabolic encephalopathy .. on TPN now . check Tylenol level - Problem Patient Problems: Patient Problems Sepsis (Acute) A41.9 Acute UTI (Acute) N39.0 Intractable nausea and vomiting (Acute) R11.2 Acute cholecystitis (Acute) K81.0 Pneumonia (Acute) J18.9
[2020-10-01] MEDS: MERREM VIAL 1 G in NS 100 ML IV + SPIKE MINIBAG* 100 ML IV SCH ×2 (13:59→22:40)
[2020-10-01] MEDS ORDERED: NS 500 ML IV 500 ML with AREDIA 90 MG IV ONE ×2 (14:00)
[2020-10-01 16:07] LABS: ABG BASE EXCESS 5.1 mmol/L (-2.0-2.0); ABG HCO3 26.9 mmol/L (22-26)
[2020-10-01] MEDS ORDERED: PHARMACY COMMENT IV NR (20:30)
[2020-10-01 21:30] LABS: CREATININE 1.04 mg/dL (0.55-1.02); VANCOMYCIN,TROUGH 18.8 ug/mL (15-20)
[2020-10-02] MEDS ORDERED: MORPHINE SULFATE INJ 2 MG INJ ONE (00:22)
[2020-10-02] MEDS: GEODON INJ IM PRN ×2 (00:31→13:20)
[2020-10-02] MEDS: MORPHINE SULFATE INJ 2 MG INJ IVP PRN (00:31)
[2020-10-02] MEDS: MAGNESIUM SULFATE IV SCH ×13 (04:39→21:44)
[2020-10-02] MEDS: [UNRECOGNIZED DRUG - OTHER] IV SCH ×13 (04:39→21:44)
[2020-10-02] MEDS: CLINIMIX IV SCH ×13 (04:39→21:44)
[2020-10-02] MEDS: MERREM VIAL 1 G in NS 100 ML IV + SPIKE MINIBAG* 100 ML IV SCH ×3 (05:35→21:44)
[2020-10-02 06:19] LABS: BASOPHILS # (AUTO) 0.7 X10^3/uL (0.0-0.1); BASOPHILS % (AUTO) 4.3 % (0.2-1.0); EOSINOPHILS # (AUTO) 0.2 x10^3/uL (0.0-0.2); HEMATOCRIT 26.1 % (36.0-47.0); HEMOGLOBIN 8.7 g/dL (12.0-16.0); LYMPHOCYTES # (AUTO) 4.8 X10^3/uL (1.3-2.9); LYMPHOCYTES % (AUTO) 28.7 % (21.0-51.0); MEAN CORPUSCULAR HEMOGLOBIN 27.8 pg (27.0-34.0); MEAN CORPUSCULAR HGB CONC 33.1 g/dL (33.0-35.0); MEAN CORPUSCULAR VOLUME 83.8 fL (80.0-100.0); MEAN PLATELET VOLUME 10.3 fL (7.4-11.0); MONOCYTES # (AUTO) 1.5 x10^3/uL (0.3-0.8); MONOCYTES % (AUTO) 9.1 % (0.0-13.0); NEUTROPHILS # (AUTO) 9.5 x10^3/uL (2.2-4.8); NEUTROPHILS % (AUTO) 56.9 % (42.0-75.0); PLATELET COUNT 139 X10^3/uL (150.0-450.0); RED BLOOD COUNT 3.12 X10^6/uL (3.5-5.4); RED CELL DISTRIBUTION WIDTH 19.8 % (11.6-16.5)
[2020-10-02 06:51] LABS: ABG BASE EXCESS 6.3 mmol/L (-2.0-2.0); ABG HCO3 29.4 mmol/L (22-26)
[2020-10-02 06:52] LABS: ABG ALLEN TEST POSS
[2020-10-02 06:57] LABS: ALANINE AMINOTRANSFERASE 20 Units/L (12-78); ALBUMIN 3.4 g/dL (3.4-5.0); ALKALINE PHOSPHATASE 130 Units/L (46-116); ASPARTATE AMINO TRANSFERASE 65 Units/L (15-37); BLOOD UREA NITROGEN 30 mg/dL (7-18); CARBON DIOXIDE 25.4 mmol/L (21-32); CHLORIDE 112 mmol/L (98-107); COR NA(FOR HYPERGLY) 153 mmol/L (136-145); CREATININE 0.94 mg/dL (0.55-1.02); TOTAL PROTEIN 5.9 g/dL (6.4-8.2); eGFR NON BLACK RACES > 60 (>60)
[2020-10-02 07:27] LABS: CALCIUM 12.7 mg/dL (8.5-10.1); SODIUM 150 mmol/L (136-145)
--- NOTE | 2020-10-02 07:34 | RAD ---
HISTORYSOBSTUDYCHEST, 1 VIEWCOMPARISONPortable chest October 01, 2020.FINDINGSThe trachea is midline. The cardiac silhouette is unremarkable . The perihilar infiltrate on the left is stable. There is worsening airspace disease in the right upper lobe which may be a combination of pneumonia and atelectasis. There is a right internal jugular central venous catheter tip in the right atrium. A calcified nodule is seen to the right the tracheal airway and the lower neck.. The bony thorax is unremarkable.IMPRESSIONNo change in the left perihilar prominent central vascularity versus interstitial infiltrate but increasing airspace disease right upper lobe which may be atelectasis versus developing pneumonia. Recommend radiographic follow-up.Right internal jugular central venous catheter in place.Electronically signed by: CHAN MARTINEZ (Oct 02, 2020 07:32:34)
[2020-10-02 08:10] LABS: WHITE BLOOD COUNT 16.7 X10^3/uL (3.6-10.0)
[2020-10-02 08:11] LABS: BAND NEUTROPHILS % 10 % (0-10); PLATELET MORPHOLOGY COMMENT NORMAL (NORMAL)
[2020-10-02 08:12] LABS: METAMYELOCYTES % 1
[2020-10-02] MEDS: ALBUMIN HUMAN 25%- 100 ML 100 ML IV SCH (09:46)
[2020-10-02] MEDS: VANCOMYCIN IV *PREMIX 1.25 G/250 ML BAG 1.25 G/250 ML PIGGYBACK IV SCH ×2 (09:46→21:44)
[2020-10-02] MEDS: LEVAQUIN PREMIX IV 500 MG 500 MG/100 ML BAG IV SCH (09:46)
--- NOTE | 2020-10-02 12:03 | CT ---
HISTORYDECREASED LOCSTUDYCT head without [id number] images of the head were obtained without IV contrast. Automatic exposure control was utilized.FINDINGSThere is age-appropriate generalized cortical involution with concomitant ventricular and sulcal enlargement. There is no acute bleed, mass effect, or abnormal extra-axial collection. No acute osseous abnormality. The visualized paranasal sinuses and mastoid air cells are clear.IMPRESSIONNo acute intracranial abnormality.Consider MRI if there is concern for acute infarct and it will make a difference in patient management.Electronically signed by: HOLLIE HONEYCUTT (Oct 02, 2020 12:01:12)
[2020-10-02] MEDS: DIFLUCAN 200 MG IV PREMIX* 200 MG/100 ML BAG IV SCH (12:14)
[2020-10-02] MEDS: LACRI-LUBE S.O.P. EACHEYE SCH ×2 (12:17→21:44)
--- NOTE | 2020-10-02 13:34 | PCM.PROG ---
Progress Note - Progress Note for Day of Date of Exam: 10/01/20 - Subjective Subjective: IS BEING TREATED FOR ACUTE UTI, ACUTE CHOLECYSTITIS, SEPSIS, AND ABDOMINAL PAIN. SHE IS DAY 6 S/P LAPCHOLE AND EXPLORATORY LAPAROTOMY. SHE IS CURRENTLY ON NASAL CANNULA AT 4 LPM THIS MORNING. HER SATURATIONS HAVE BEEN 90-93% THIS MORNING AND THROUGHOUT THE NIGHT. SHE HAS HAD FEVER THROUGHOUT THE NIGHT. ON EXAMINATION, SHE IS LYING IN BED WITH EYES CLOSED. SHE DOES NOT OPEN EYES TO VERBAL STIMULI. SHE DOES NOT FOLLOW COMMANDS. SHE DOES MOAN TO PAINFUL STIMULI. SHE CONTINUES TO BE TACHYCARDIC WITH HR 110- 120 BPM. BILATERAL LUNGS ARE NOTED WITH DIMINISHED LUNG SOUNDS THROUGHOUT. SHE HAS RAPID, SHALLOW RESPIRATIONS. ABDOMEN IS ROUND, SOFT, AND NOTED TO HAVE DECREASED BOWEL SOUNDS IN ALL QUADRANTS. THERE IS A MODESTO DRAIN NOTED WITH A MODERATE AMOUNT OF BLOODY DRAINAGE. DRAINAGE DOES APPEAR TO HAVE DECREASED SINCE YESTERDAY. DRESSINGS TO ABDOMEN ARE DRY AND INTACT WITH NO S/SX INFECTION NOTED. THERE IS 1+ EDEMA TO UPPER AND LOWER EXTREMITIES. HER VITALS THIS MORNING ARE: 101.0-121-24-90%-174/82. LABS WERE OBTAINED. ABNORMAL LAB VALUES INCLUDE THE FOLLOWING: WBC 19.5, RBC 3.29, HGB 9.0, HCT 27.4, PLT COUNT 143, SODIUM 148, POTASSIUM 3.3, BUN 20, CREATININE 1.03, GLUCOSE 128, CALCIUM 12.2, AST 52, ALK PHOS 149, CRP 115.30, TOTAL PROTEIN 5.7, ALBUMIN 3.0 AN ABG WAS OBTAINED AND REVEALED: PH 7.600, PC02 29, P02 63, HC03 28.5, 02 SAT 95, BASE EXCESS 7.3, A-A GRADIENT 129, FI02 32. BLOOD AND DRAINAGE CULTURES ARE PENDING. A CHEST XRAY WAS OBTAINED THIS MORNING AND REVEALED: Unchanged mildly prominent central vascularity with no evidence of edema or pneumonia on current study. TODAY, WE WILL CHANGE HER IV FLUIDS TO NS AT 75 ML/HR, START TPN, ADD AREDIA 90MG IV X 1 FOR HYPERCALCEMIA, DISCONTINUE THE ZOSYN AND ADD MERREM IV, INCREASE ALBUMIN TO BID, ADMINISTER LASIX 40MG IV X 1 DOSE, CHECK AN IONIZED CALCIUM LEVEL, AND CONSULT SPEECH THERAPY. OTHERWISE, WE WILL CONTINUE WITH CURRENT PLAN OF CARE TODAY. WE PLAN TO FOLLOW UP WITH AM LABS, CHEST XRAY, ABG, AND CONTINUE TO MONITOR. WILL CONTINUE TO FOLLOW PATIENT. TIME SPENT ON CLINICAL ASSESSMENT, REVIEWING LABS AND IMAGING, DECISION MAKING, AND DOCUMENTATION GREATER THAN 75 MINUTES. - Past Medical Family Social History Past Med/Fam/Surg Hx: No changes since H&P Allergies: Allergies codeine Allergy (Verified 09/22/20 20:50) - Review of Systems ROS: No change since H&P - Vital Signs and I&O's Vital Signs: Temperature 99.0 F Pulse Rate [Left] 117 Pulse Rate 144 Respiratory Rate 28 Blood Pressure [Right Arm] 153/73 Blood Pressure [Left Arm] 172/101 Blood Pressure 164/89 O2 Sat by Pulse Oximetry 93 Intake and Output: Intake & Output 09/30/20 10/01/20 10/02/20 10/03/20 11:59 11:59 11:59 11:59 Intake Total 3690 / 3690 3340 / 3340 2300 / 2300 Output Total 2200 / 2200 5120 / 5120 3540 / 3540 Balance 1490 / 1490 -1780 / -1780 -1240 / -1240 - Physical Exam Oriented: Unable to test, Other (not responsive .) Eyes: Normal Ear: Normal Nose: Normal Throat: Normal Respiratory: Diminished Cardiovascular: Normal : Normal Auscultation: Bowel Sounds: Decreased (soft abdomen . BS hypoactive ..) Tenderness: Diffuse (soft , flat abdomen with hypoactive BS .) Skin: Normal Musculoskeletal: Normal Psychiatric: Normal Mood Description: Calm Affect: Normal Speech Pattern: Inappropriate - Laboratory and Diagnostics Result Diagrams: 10/03/20 05:18 10/03/20 05:18 Labs: 09/30/20 12:28 Blood Blood Culture - Preliminary 09/30/20 11:48 Blood Blood Culture - Preliminary 09/30/20 11:50 Drainage - Preliminary 09/26/20 05:16 Blood Blood Culture - Final 09/26/20 05:10 Blood Blood Culture - Final 09/22/20 20:30 Blood Blood Culture - Final 09/22/20 20:05 Blood Blood Culture - Final 09/24/20 11:46 Urine,Clean Catch Urine Culture - Final Laboratory WBC 16.7 X10^3/uL (3.6-10.0) H 10/02/20 05:26 RBC 3.12 X10^6/uL (3.5-5.4) L 10/02/20 05:26 Hgb 8.7 g/dL (12.0-16.0) L 10/02/20 05:26 Hct 26.1 % (36.0-47.0) L 10/02/20 05:26 MCV 83.8 fL (80.0-100.0) 10/02/20 05:26 MCH 27.8 pg (27.0-34.0) 10/02/20 05:26 MCHC 33.1 g/dL (33.0-35.0) 10/02/20 05:26 RDW 19.8 % (11.6-16.5) H 10/02/20 05:26 Plt Count 139 X10^3/uL (150.0-450.0) L 10/02/20 05:26 Plt Count Comment Decreased (ADEQUATE) A 10/02/20 05:26 MPV 10.3 fL (7.4-11.0) 10/02/20 05:26 Neut % (Auto) 56.9 % (42.0-75.0) 10/02/20 05:26 Lymph % (Auto) 28.7 % (21.0-51.0) 10/02/20 05:26 [place] % (Auto) 9.1 % (0.0-13.0) 10/02/20 05:26 Eos % (Auto) 1.0 % (0.9-2.9) 10/02/20 05:26 Baso % (Auto) 4.3 % (0.2-1.0) H 10/02/20 05:26 Neut # (Auto) 9.5 x10^3/uL (2.2-4.8) H 10/02/20 05:26 Lymph # (Auto) 4.8 X10^3/uL (1.3-2.9) H 10/02/20 05:26 [place] # (Auto) 1.5 x10^3/uL (0.3-0.8) H 10/02/20 05:26 Eos # (Auto) 0.2 x10^3/uL (0.0-0.2) 10/02/20 05:26 Baso # (Auto) 0.7 X10^3/uL (0.0-0.1) H 10/02/20 05:26 Absolute Nucleated RBC 5.0 /100WBC 10/02/20 05:26 Total Counted 100 10/02/20 05:26 Neutrophils % (Manual) 54 % (39-76) 10/02/20 05:26 Band Neutrophils % 10 % (0-10) 10/02/20 05:26 Lymphocytes % (Manual) 28 % (13-43) 10/02/20 05:26 Monocytes % (Manual) 7 % (4-9) 10/02/20 05:26 Eosinophils % (Manual) 2 % (0-6) 10/01/20 05:24 Basophils % (Manual) 1 % (0-1) 09/29/20 05:14 Metamyelocytes % 1 10/02/20 05:26 Myelocytes % 2 10/01/20 05:24 Promyelocytes % 1 09/30/20 07:52 Nucleated RBCs 12 10/02/20 05:26 Atypical Lymphocytes Rare A 09/27/20 04:05 Blast Cells Cancelled 09/24/20 04:00 Smudge Cells Cancelled 09/24/20 04:00 Toxic Granulation Cancelled 09/24/20 04:00 Dohle Bodies Cancelled 09/24/20 04:00 Isabela Rods Cancelled 09/24/20 04:00 Plt Clumps, EDTA Cancelled 09/24/20 04:00 Giant Platelets Cancelled 09/24/20 04:00 Plt Morphology Comment Normal (NORMAL) 10/02/20 05:26 RBC Morphology Normal (NORMAL) 10/02/20 05:26 Dimorphic RBCs Cancelled 09/24/20 04:00 Polychromasia Cancelled 09/24/20 04:00 Hypochromasia Cancelled 09/24/20 04:00 Poikilocytosis Cancelled 09/24/20 04:00 Basophilic Stippling Cancelled 09/24/20 04:00 Anisocytosis Slight A 09/30/20 07:52 Microcytosis Cancelled 09/24/20 04:00 Macrocytosis Cancelled 09/24/20 04:00 Spherocytes Cancelled 09/24/20 04:00 Pappenheimer Bodies Cancelled 09/24/20 04:00 Sickle Cells Cancelled 09/24/20 04:00 Target Cells Cancelled 09/24/20 04:00 Tear Drop Cells Cancelled 09/24/20 04:00 Ovalocytes Cancelled 09/24/20 04:00 Stomatocytes Cancelled 09/24/20 04:00 Helmet Cells Cancelled 09/24/20 04:00 [place] Bodies Cancelled 09/24/20 04:00 [place] Rings Cancelled 09/24/20 04:00 [place] Cells Cancelled 09/24/20 04:00 Crenated Cell Cancelled 09/24/20 04:00 Acanthocytes (Spur) Cancelled 09/24/20 04:00 Rouleaux Cancelled 09/24/20 04:00 Schistocytes Cancelled 09/24/20 04:00 Smear Path Review See note 09/24/20 04:00 ESR 7 MM/HOUR (0-20) 09/22/20 20:05 PT 18.4 SECONDS (11.8-14.3) 09/25/20 16:22 INR Target Range - 09/25/20 16:22 INR 1.58 (0.8-1.3) H 09/25/20 16:22 APTT 39.5 SECONDS (22.9-36.5) H 09/25/20 16:22 PTT Comment - 09/25/20 16:22 Sample Site L rad 10/02/20 06:45 ABG pH 7.520 (7.35-7.45) H 10/02/20 06:45 ABG pCO2 36.0 mmHg (35.0-45.0) 10/02/20 06:45 ABG pO2 63.0 mmHg (80.0-100.0) L 10/02/20 06:45 ABG HCO3 29.4 mmol/L (22-26) H 10/02/20 06:45 ABG O2 Saturation 94.0 % (90-100) 10/02/20 06:45 ABG Base Excess 6.3 mmol/L (-2.0-2.0) H 10/02/20 06:45 Isreal Test Poss 10/02/20 06:45 A-a Gradient 149.0 mmHg 10/02/20 06:45 FiO2 36.0 10/02/20 06:45 Blood Gas Comments Kirit well kb 10/02/20 06:45 Sodium 150 mmol/L (136-145) H* 10/02/20 05:26 Corrected Sodium 153 mmol/L (136-145) H 10/02/20 05:26 Potassium 2.8 mmol/L (3.5-5.1) L* 10/02/20 05:26 Chloride 112 mmol/L (98-107) H 10/02/20 05:26 Carbon Dioxide 25.4 mmol/L (21-32) 10/02/20 05:26 BUN 30 mg/dL (7-18) H 10/02/20 05:26 Creatinine 0.94 mg/dL (0.55-1.02) 10/02/20 05:26 Est GFR (MDRD) Af Amer > 60 (>60) 10/02/20 05:26 Est GFR (MDRD) Non-Af > 60 (>60) 10/02/20 05:26 Glucose 228 mg/dL (65-99) H 10/02/20 05:26 POC Glucose (mg/dL) 173 mg/dL (65-99) H 10/02/20 11:02 Lactic Acid 1.7 mmol/L (0.4-2.0) 09/26/20 08:47 Calcium 12.7 mg/dL (8.5-10.1) H* 10/02/20 05:26 Corrected Calcium TNP 10/02/20 05:26 Magnesium 1.6 mg/dL (1.7-2.9) L 09/29/20 05:14 Total Bilirubin 0.90 mg/dL (0.2-1.0) 10/02/20 05:26 AST 65 Units/L (15-37) H 10/02/20 05:26 ALT 20 Units/L (12-78) 10/02/20 05:26 Alkaline Phosphatase 130 Units/L (46-116) H 10/02/20 05:26 Lactate Dehydrogenase 4395 Units/L (81-234) H 09/22/20 20:05 Creatine Kinase 326 Units/L (26-192) H 09/26/20 08:47 CK-MB (CK-2) 2.5 ng/mL (0-4.0) 09/26/20 08:47 CK/CKMB % Calc 0.8 % (<4) 09/26/20 08:47 Troponin I 0.13 ng/mL (0-1.5) 09/26/20 08:47 C-Reactive Protein 115.30 mg/L (0-3.0) H 10/01/20 05:24 B-Natriuretic Peptide 37.5 pg/mL (0-79) 09/27/20 04:05 Total Protein 5.9 g/dL (6.4-8.2) L 10/02/20 05:26 Albumin 3.4 g/dL (3.4-5.0) 10/02/20 05:26 Globulin 2.5 g/dL (2.5-4.5) 10/02/20 05:26 Albumin/Globulin Ratio 1.4 Ratio (1.1-2.1) 10/02/20 05:26 Prealbumin 10.5 mg/dL (18-35.7) L 10/01/20 05:24 Amylase 15 Units/L (25-115) L 09/24/20 04:10 Lipase 193 Units/L (73-393) 09/24/20 04:10 Specimen Type Catherized urine 09/27/20 14:03 Urine Color Dark yellow (YELLOW) 09/27/20 14:03 Urine Appearance Hazy (CLEAR) 09/27/20 14:03 Urine pH 5.0 (5.0 - 8.0) 09/27/20 14:03 Ur Specific [place] 1.020 (1.000-1.030) 09/27/20 14:03 Urine Protein 3+ (NEGATIVE) 09/27/20 14:03 Urine Glucose (UA) Negative (NEGATIVE) 09/27/20 14:03 Urine Ketones Negative (NEGATIVE) 09/27/20 14:03 Urine Occult Blood 5+ (NEGATIVE) 09/27/20 14:03 Urine Nitrite Negative (NEGATIVE) 09/27/20 14:03 Urine Bilirubin Negative (NEGATIVE) 09/27/20 14:03 Urine Urobilinogen Normal (NORMAL) 09/27/20 14:03 Ur Leukocyte Esterase Negative (NEGATIVE) 09/27/20 14:03 Urine RBC 30-50 /HPF (0-3) A 09/27/20 14:03 Urine WBC None seen /HPF (0-5) 09/27/20 14:03 Ur Squamous Epith Cells Negative /HPF (NEGATIVE) 09/27/20 14:03 Uric Acid Crystals Few /HPF (NEGATIVE) 09/27/20 14:03 Urine Bacteria Negative /HPF (NEGATIVE) 09/27/20 14:03 Ur Culture Indicated? No/not indicated 09/27/20 14:03 Vancomycin Trough 18.8 ug/mL (15-20) 10/01/20 20:35 Urine Opiates Screen Negative (NEG=<300) 09/22/20 21:01 Urine Methadone Screen Negative (NEG=<300) 09/22/20 21:01 Acetaminophen < 0.0 ug/mL (10-30) L 10/01/20 14:26 Ur Barbiturates Screen Negative (NEG=<200) 09/22/20 21:01 Ur Phencyclidine Scrn Negative (NEG=<25) 09/22/20 21:01 Ur Amphetamines Screen Negative (NEG=<1000) 09/22/20 21:01 U Benzodiazepines Scrn Negative (NEG=<200) 09/22/20 21:01 Urine Cocaine Screen Negative (NEG=<300) 09/22/20 21:01 U Marijuana (THC) Screen Negative (NEG=<50) 09/22/20 21:01 SARS-CoV-2 (PCR) Negative (NEGATIVE) 09/23/20 00:08 Influenza Type A (PCR) Negative (NEGATIVE) 10/01/20 18:10 Influenza Type B (PCR) Negative (NEGATIVE) 10/01/20 18:10 RSV (PCR) Negative (NEGATIVE) 09/23/20 00:08 SARS CoV-2 RNA Rapid MIKHAIL Negative (NEGATIVE) 10/01/20 18:10 Tissue Pathology To follow 09/25/20 15:24 Miscellaneous Test Cancelled 10/01/20 05:24 Blood Type A POSITIVE 09/29/20 12:51 Antibody Screen Negative 09/29/20 12:51 Crossmatch See Detail 09/29/20 12:51 Tx React Prelim Eval Inconclusive 09/25/20 22:05 Tx React Symptoms Fever 09/25/20 22:05 Reaction Path Interpret Febrile reaction 09/25/20 22:[address] 09/25/20 22:05 Blood Bank Comment Performed by P2 09/25/20 22:05 - Plan (1) Acute cholecystitis Status: Acute Plan: DAY 5 S/P LAPCHOLE, NS AT 65 ML/HR, LEVAQUIN 500MG IV DAILY, ZOSYN IV, VANCOMYCIN IV, DIFLUCAN 200MG IV DAILYVISTARIL 25-50MG Q8H PRN, ZOFRAN 4MG IV Q4H PRN, PHENERGAN 6.25MG IM PRN, THE POTASSIUM AND MAGNESIUM PROTOCOLS, LOPRESSOR PRN, HYDRALAZINE PRN, TPN, HUMULIN R SLIDING SCALE, MORPHINE PRN, GEOD ON 20MG IM BID PRN (2) Acute UTI Status: Acute Plan: NS AT KVO, LEVAQUIN 500MG IV DAILY, FORTAZ 1G IV Q8H, ZOFRAN 4MG IV Q4H PRN NAUSEA, CLINIMIX FOR NUTRITION AT 40 ML/HR. (3) Sepsis Status: Acute Qualifiers: Sepsis type: sepsis due to unspecified organism Sepsis acute organ dysfunction status: unspecified Qualified Code(s): A41.9 - Sepsis, unspecified organism (4) Intractable nausea and vomiting Status: Acute (5) Pneumonia Status: Acute Qualifiers: Pneumonia type: due to unspecified organism Laterality: bilateral Lung location: unspecified part of lung Qualified Code(s): J18.9 - Pneumonia, unspecified organism
--- NOTE | 2020-10-02 17:12 | DR.PROGNOT ---
Hospital Progress Notes - Progress Note for Day of: Progress Note Date: 10/02/20 - History of Present Illness History of Present Illness: no changes , still unresponsive . moving her RUE . R 24 P 114. WBC 16.7 Hgb 8.7 Na 150. K 2.8 PH 7.57 base excess 6.3 LFT normal [place] normal .. ca 12. brain CT normal . - Past Medical Family Social History Past Med/Fam/Surg Hx: No changes since H&P Allergies: Allergies codeine Allergy (Verified 09/22/20 20:50) - Review Of Systems ROS: No change since H&P - Vital Signs Vital Signs: Temperature 99.8 F Pulse Rate [Left] 114 Pulse Rate 144 Respiratory Rate 24 Blood Pressure [Right Arm] 156/72 Blood Pressure [Left Arm] 172/101 Blood Pressure 164/89 O2 Sat by Pulse Oximetry 90 - Physical Exam Oriented: Unable to test, Other (not responsive .) Eyes: Normal Ear: Normal Nose: Normal Throat: Normal Respiratory: Diminished Cardiovascular: Normal : Normal GI:Auscultation: Decreased (soft abdomen . BS hypoactive ..) GI:Palpation: Normal GI: Tenderness: Diffuse (soft , flat abdomen with hypoactive BS .) Skin: Normal Musculoskeletal: Normal Psychiatric: Normal Mood Description: Calm Affect: Normal Speech Pattern: Inappropriate - Laboratory and Diagnostics Result Diagrams: 10/02/20 05:26 10/02/20 05:26 Labs: 09/30/20 12:28 Blood Blood Culture - Preliminary 09/30/20 11:48 Blood Blood Culture - Preliminary 09/30/20 11:50 Drainage - Preliminary 09/26/20 05:16 Blood Blood Culture - Final 09/26/20 05:10 Blood Blood Culture - Final 09/22/20 20:30 Blood Blood Culture - Final 09/22/20 20:05 Blood Blood Culture - Final 09/24/20 11:46 Urine,Clean Catch Urine Culture - Final Laboratory WBC 16.7 X10^3/uL (3.6-10.0) H 10/02/20 05:26 RBC 3.12 X10^6/uL (3.5-5.4) L 10/02/20 05:26 Hgb 8.7 g/dL (12.0-16.0) L 10/02/20 05:26 Hct 26.1 % (36.0-47.0) L 10/02/20 05:26 MCV 83.8 fL (80.0-100.0) 10/02/20 05:26 MCH 27.8 pg (27.0-34.0) 10/02/20 05:26 MCHC 33.1 g/dL (33.0-35.0) 10/02/20 05:26 RDW 19.8 % (11.6-16.5) H 10/02/20 05:26 Plt Count 139 X10^3/uL (150.0-450.0) L 10/02/20 05:26 Plt Count Comment Decreased (ADEQUATE) A 10/02/20 05:26 MPV 10.3 fL (7.4-11.0) 10/02/20 05:26 Neut % (Auto) 56.9 % (42.0-75.0) 10/02/20 05:26 Lymph % (Auto) 28.7 % (21.0-51.0) 10/02/20 05:26 [place] % (Auto) 9.1 % (0.0-13.0) 10/02/20 05:26 Eos % (Auto) 1.0 % (0.9-2.9) 10/02/20 05:26 Baso % (Auto) 4.3 % (0.2-1.0) H 10/02/20 05:26 Neut # (Auto) 9.5 x10^3/uL (2.2-4.8) H 10/02/20 05:26 Lymph # (Auto) 4.8 X10^3/uL (1.3-2.9) H 10/02/20 05:26 [place] # (Auto) 1.5 x10^3/uL (0.3-0.8) H 10/02/20 05:26 Eos # (Auto) 0.2 x10^3/uL (0.0-0.2) 10/02/20 05:26 Baso # (Auto) 0.7 X10^3/uL (0.0-0.1) H 10/02/20 05:26 Absolute Nucleated RBC 5.0 /100WBC 10/02/20 05:26 Total Counted 100 10/02/20 05:26 Neutrophils % (Manual) 54 % (39-76) 10/02/20 05:26 Band Neutrophils % 10 % (0-10) 10/02/20 05:26 Lymphocytes % (Manual) 28 % (13-43) 10/02/20 05:26 Monocytes % (Manual) 7 % (4-9) 10/02/20 05:26 Eosinophils % (Manual) 2 % (0-6) 10/01/20 05:24 Basophils % (Manual) 1 % (0-1) 09/29/20 05:14 Metamyelocytes % 1 10/02/20 05:26 Myelocytes % 2 10/01/20 05:24 Promyelocytes % 1 09/30/20 07:52 Nucleated RBCs 12 10/02/20 05:26 Atypical Lymphocytes Rare A 09/27/20 04:05 Blast Cells Cancelled 09/24/20 04:00 Smudge Cells Cancelled 09/24/20 04:00 Toxic Granulation Cancelled 09/24/20 04:00 Dohle Bodies Cancelled 09/24/20 04:00 Isabela Rods Cancelled 09/24/20 04:00 Plt Clumps, EDTA Cancelled 09/24/20 04:00 Giant Platelets Cancelled 09/24/20 04:00 Plt Morphology Comment Normal (NORMAL) 10/02/20 05:26 RBC Morphology Normal (NORMAL) 10/02/20 05:26 Dimorphic RBCs Cancelled 09/24/20 04:00 Polychromasia Cancelled 09/24/20 04:00 Hypochromasia Cancelled 09/24/20 04:00 Poikilocytosis Cancelled 09/24/20 04:00 Basophilic Stippling Cancelled 09/24/20 04:00 Anisocytosis Slight A 09/30/20 07:52 Microcytosis Cancelled 09/24/20 04:00 Macrocytosis Cancelled 09/24/20 04:00 Spherocytes Cancelled 09/24/20 04:00 Pappenheimer Bodies Cancelled 09/24/20 04:00 Sickle Cells Cancelled 09/24/20 04:00 Target Cells Cancelled 09/24/20 04:00 Tear Drop Cells Cancelled 09/24/20 04:00 Ovalocytes Cancelled 09/24/20 04:00 Stomatocytes Cancelled 09/24/20 04:00 Helmet Cells Cancelled 09/24/20 04:00 [place] Bodies Cancelled 09/24/20 04:00 [place] Rings Cancelled 09/24/20 04:00 [place] Cells Cancelled 09/24/20 04:00 Crenated Cell Cancelled 09/24/20 04:00 Acanthocytes (Spur) Cancelled 09/24/20 04:00 Rouleaux Cancelled 09/24/20 04:00 Schistocytes Cancelled 09/24/20 04:00 Smear Path Review See note 09/24/20 04:00 ESR 7 MM/HOUR (0-20) 09/22/20 20:05 PT 18.4 SECONDS (11.8-14.3) 09/25/20 16:22 INR Target Range - 09/25/20 16:22 INR 1.58 (0.8-1.3) H 09/25/20 16:22 APTT 39.5 SECONDS (22.9-36.5) H 09/25/20 16:22 PTT Comment - 09/25/20 16:22 Sample Site L rad 10/02/20 06:45 ABG pH 7.520 (7.35-7.45) H 10/02/20 06:45 ABG pCO2 36.0 mmHg (35.0-45.0) 10/02/20 06:45 ABG pO2 63.0 mmHg (80.0-100.0) L 10/02/20 06:45 ABG HCO3 29.4 mmol/L (22-26) H 10/02/20 06:45 ABG O2 Saturation 94.0 % (90-100) 10/02/20 06:45 ABG Base Excess 6.3 mmol/L (-2.0-2.0) H 10/02/20 06:45 Isreal Test Poss 10/02/20 06:45 A-a Gradient 149.0 mmHg 10/02/20 06:45 FiO2 36.0 10/02/20 06:45 Blood Gas Comments Kirit well kb 10/02/20 06:45 Sodium 150 mmol/L (136-145) H* 10/02/20 05:26 Corrected Sodium 153 mmol/L (136-145) H 10/02/20 05:26 Potassium 2.8 mmol/L (3.5-5.1) L* 10/02/20 05:26 Chloride 112 mmol/L (98-107) H 10/02/20 05:26 Carbon Dioxide 25.4 mmol/L (21-32) 10/02/20 05:26 BUN 30 mg/dL (7-18) H 10/02/20 05:26 Creatinine 0.94 mg/dL (0.55-1.02) 10/02/20 05:26 Est GFR (MDRD) Af Amer > 60 (>60) 10/02/20 05:26 Est GFR (MDRD) Non-Af > 60 (>60) 10/02/20 05:26 Glucose 228 mg/dL (65-99) H 10/02/20 05:26 POC Glucose (mg/dL) 183 mg/dL (65-99) H 10/02/20 16:58 Lactic Acid 1.7 mmol/L (0.4-2.0) 09/26/20 08:47 Calcium 12.7 mg/dL (8.5-10.1) H* 10/02/20 05:26 Corrected Calcium TNP 10/02/20 05:26 Magnesium 1.6 mg/dL (1.7-2.9) L 09/29/20 05:14 Total Bilirubin 0.90 mg/dL (0.2-1.0) 10/02/20 05:26 AST 65 Units/L (15-37) H 10/02/20 05:26 ALT 20 Units/L (12-78) 10/02/20 05:26 Alkaline Phosphatase 130 Units/L (46-116) H 10/02/20 05:26 Lactate Dehydrogenase 4395 Units/L (81-234) H 09/22/20 20:05 Creatine Kinase 326 Units/L (26-192) H 09/26/20 08:47 CK-MB (CK-2) 2.5 ng/mL (0-4.0) 09/26/20 08:47 CK/CKMB % Calc 0.8 % (<4) 09/26/20 08:47 Troponin I 0.13 ng/mL (0-1.5) 09/26/20 08:47 C-Reactive Protein 115.30 mg/L (0-3.0) H 10/01/20 05:24 B-Natriuretic Peptide 37.5 pg/mL (0-79) 09/27/20 04:05 Total Protein 5.9 g/dL (6.4-8.2) L 10/02/20 05:26 Albumin 3.4 g/dL (3.4-5.0) 10/02/20 05:26 Globulin 2.5 g/dL (2.5-4.5) 10/02/20 05:26 Albumin/Globulin Ratio 1.4 Ratio (1.1-2.1) 10/02/20 05:26 Prealbumin 10.5 mg/dL (18-35.7) L 10/01/20 05:24 Amylase 15 Units/L (25-115) L 09/24/20 04:10 Lipase 193 Units/L (73-393) 09/24/20 04:10 Specimen Type Catherized urine 09/27/20 14:03 Urine Color Dark yellow (YELLOW) 09/27/20 14:03 Urine Appearance Hazy (CLEAR) 09/27/20 14:03 Urine pH 5.0 (5.0 - 8.0) 09/27/20 14:03 Ur Specific [place] 1.020 (1.000-1.030) 09/27/20 14:03 Urine Protein 3+ (NEGATIVE) 09/27/20 14:03 Urine Glucose (UA) Negative (NEGATIVE) 09/27/20 14:03 Urine Ketones Negative (NEGATIVE) 09/27/20 14:03 Urine Occult Blood 5+ (NEGATIVE) 09/27/20 14:03 Urine Nitrite Negative (NEGATIVE) 09/27/20 14:03 Urine Bilirubin Negative (NEGATIVE) 09/27/20 14:03 Urine Urobilinogen Normal (NORMAL) 09/27/20 14:03 Ur Leukocyte Esterase Negative (NEGATIVE) 09/27/20 14:03 Urine RBC 30-50 /HPF (0-3) A 09/27/20 14:03 Urine WBC None seen /HPF (0-5) 09/27/20 14:03 Ur Squamous Epith Cells Negative /HPF (NEGATIVE) 09/27/20 14:03 Uric Acid Crystals Few /HPF (NEGATIVE) 09/27/20 14:03 Urine Bacteria Negative /HPF (NEGATIVE) 09/27/20 14:03 Ur Culture Indicated? No/not indicated 09/27/20 14:03 Vancomycin Trough 18.8 ug/mL (15-20) 10/01/20 20:35 Urine Opiates Screen Negative (NEG=<300) 09/22/20 21:01 Urine Methadone Screen Negative (NEG=<300) 09/22/20 21:01 Acetaminophen < 0.0 ug/mL (10-30) L 10/01/20 14:26 Ur Barbiturates Screen Negative (NEG=<200) 09/22/20 21:01 Ur Phencyclidine Scrn Negative (NEG=<25) 09/22/20 21:01 Ur Amphetamines Screen Negative (NEG=<1000) 09/22/20 21:01 U Benzodiazepines Scrn Negative (NEG=<200) 09/22/20 21:01 Urine Cocaine Screen Negative (NEG=<300) 09/22/20 21:01 U Marijuana (THC) Screen Negative (NEG=<50) 09/22/20 21:01 SARS-CoV-2 (PCR) Negative (NEGATIVE) 09/23/20 00:08 Influenza Type A (PCR) Negative (NEGATIVE) 10/01/20 18:10 Influenza Type B (PCR) Negative (NEGATIVE) 10/01/20 18:10 RSV (PCR) Negative (NEGATIVE) 09/23/20 00:08 SARS CoV-2 RNA Rapid [place] Negative (NEGATIVE) 10/01/20 18:10 Tissue Pathology To follow 09/25/20 15:24 Miscellaneous Test Cancelled 10/01/20 05:24 Blood Type A POSITIVE 09/29/20 12:51 Antibody Screen Negative 09/29/20 12:51 Crossmatch See Detail 09/29/20 12:51 Tx React Prelim Eval Inconclusive 09/25/20 22:05 Tx React Symptoms Fever 09/25/20 22:05 Reaction Path Interpret Febrile reaction 09/25/20 22:[address] 09/25/20 22:05 Blood Bank Comment Performed by P2 09/25/20 22:05 - Assessment and Plan 1: sepsis from gangrenous GB and UTI . s/p cholecystectomy . respiratory alkalosis. Pt is still critical with metabolic encephalopathy .. on TPN now . rebreathing mask . to correct hypertatremia and hypokalemia - Problem Patient Problems: Patient Problems Sepsis (Acute) A41.9 Acute UTI (Acute) N39.0 Intractable nausea and vomiting (Acute) R11.2 Acute cholecystitis (Acute) K81.0 Pneumonia (Acute) J18.9
[2020-10-02] MEDS: OFIRMEV IV 1000 MG VIAL 1,000 MG/100 ML VIAL IV PRN ×2 (18:11→23:51)
[2020-10-02] MEDS ORDERED: OFIRMEV IV 1000 MG VIAL 1,000 MG/100 ML VIAL IV ONE (18:13)
[2020-10-03] MEDS: MORPHINE SULFATE INJ 2 MG INJ IVP PRN (00:51)
[2020-10-03] MEDS ORDERED: NS 100 ML IV 100 ML IV ONE (00:52)
[2020-10-03 05:43] LABS: ABG BASE EXCESS 5.8 mmol/L (-2.0-2.0); ABG HCO3 28.2 mmol/L (22-26)
[2020-10-03 05:44] LABS: ABG ALLEN TEST POS
[2020-10-03] MEDS: CLINIMIX IV SCH ×6 (05:51)
[2020-10-03] MEDS: MERREM VIAL 1 G in NS 100 ML IV + SPIKE MINIBAG* 100 ML IV SCH (05:51)
[2020-10-03] MEDS: [UNRECOGNIZED DRUG - OTHER] IV SCH ×6 (05:51)
[2020-10-03] MEDS: MAGNESIUM SULFATE IV SCH ×6 (05:51)
[2020-10-03 06:05] LABS: BASOPHILS # (AUTO) 0.2 X10^3/uL (0.0-0.1); EOSINOPHILS # (AUTO) 0.2 x10^3/uL (0.0-0.2); EOSINOPHILS % (AUTO) 0.9 % (0.9-2.9); HEMATOCRIT 26.8 % (36.0-47.0); HEMOGLOBIN 8.7 g/dL (12.0-16.0); LYMPHOCYTES # (AUTO) 6.7 X10^3/uL (1.3-2.9); LYMPHOCYTES % (AUTO) 34.8 % (21.0-51.0); MEAN CORPUSCULAR HEMOGLOBIN 27.5 pg (27.0-34.0); MEAN CORPUSCULAR HGB CONC 32.5 g/dL (33.0-35.0); MEAN CORPUSCULAR VOLUME 84.6 fL (80.0-100.0); MEAN PLATELET VOLUME 10.4 fL (7.4-11.0); MONOCYTES # (AUTO) 1.9 x10^3/uL (0.3-0.8); MONOCYTES % (AUTO) 9.8 % (0.0-13.0); NEUTROPHILS # (AUTO) 10.3 x10^3/uL (2.2-4.8); NEUTROPHILS % (AUTO) 53.5 % (42.0-75.0); PLATELET COUNT 131 X10^3/uL (150.0-450.0); RED BLOOD COUNT 3.17 X10^6/uL (3.5-5.4); RED CELL DISTRIBUTION WIDTH 19.6 % (11.6-16.5); WHITE BLOOD COUNT 19.2 X10^3/uL (3.6-10.0)
[2020-10-03 06:17] LABS: ALANINE AMINOTRANSFERASE 18 Units/L (12-78); ALBUMIN 3.3 g/dL (3.4-5.0); ALKALINE PHOSPHATASE 125 Units/L (46-116); ASPARTATE AMINO TRANSFERASE 71 Units/L (15-37); BLOOD UREA NITROGEN 37 mg/dL (7-18); CARBON DIOXIDE 26.3 mmol/L (21-32); COR CA(FOR HYPOALB) 13.1 mg/dL (8.5-10.1); COR NA(FOR HYPERGLY) 156 mmol/L (136-145); CREATININE 0.93 mg/dL (0.55-1.02); TOTAL PROTEIN 5.9 g/dL (6.4-8.2); eGFR NON BLACK RACES > 60 (>60)
[2020-10-03 06:26] LABS: CALCIUM 12.5 mg/dL (8.5-10.1); CHLORIDE 115 mmol/L (98-107); SODIUM 154 mmol/L (136-145)
[2020-10-03 06:32] LABS: BAND NEUTROPHILS % 3 % (0-10); METAMYELOCYTES % 3; PLATELET MORPHOLOGY COMMENT NORMAL (NORMAL)
[2020-10-03 06:33] LABS: ANISOCYTOSIS SLIGHT
--- NOTE | 2020-10-03 07:58 | RAD ---
HISTORYSOBSTUDYCHEST, 1 VIEWCOMPARISONPortable chest October 02, 2020.FINDINGSThe trachea is midline. The cardiac silhouette is unremarkable. Right-sided internal jugular central venous catheters in place tip in the right atrium. The lungs are clear without focal infiltrate or effusion. The left perihilar vascular congestion and interstitial process has significantly improved since yesterday's film. The bony thorax is unremarkable.IMPRESSIONLow lung volumes but improvement in the left perihilar vascular congestion and/or perihilar interstitial process compared to yesterdays film.Right internal jugular central venous catheter in placeElectronically signed by: CHAN MARTINEZ (Oct 03, 2020 07:56:55)
[2020-10-03] MEDS: LACRI-LUBE S.O.P. EACHEYE SCH (09:15)
[2020-10-03] MEDS: LEVAQUIN PREMIX IV 500 MG 500 MG/100 ML BAG IV SCH (09:15)
[2020-10-03] MEDS ORDERED: DIPRIVAN VIAL ONE (10:45)
[2020-10-03] MEDS ORDERED: QUELICIN (OR ANECTINE) ONE (10:45)
[2020-10-03] MEDS ORDERED: LOVENOX INJ 30 MG SYR SC ONE (11:11)
--- NOTE | 2020-10-03 11:14 | PCM.PROG ---
Progress Note - Progress Note for Day of Date of Exam: 10/02/20 - Subjective Subjective: IS BEING TREATED FOR ACUTE UTI, ACUTE CHOLECYSTITIS, SEPSIS, AND HYPERCALCEMIA. SHE IS DAY 7 S/P LAPCHOLE AND EXPLORATORY LAPAROTOMY. SHE IS CURRENTLY ON NASAL CANNULA AT 4 LPM THIS MORNING. HER SATURATIONS HAVE BEEN 90-93% THIS MORNING AND THROUGHOUT THE NIGHT. SHE HAS CONTINUES TO HAVE FEVER THROUGHOUT THE NIGHT. ON EXAMINATION, SHE IS CURRENTLY LYIING IN BED WITH EYES CLOSED. SHE DOES NOT OPEN EYES TO VERBAL STIMULI, BUT DOES MOAN OUT. SHE CONTINUES TO BE TACHYCARDIC WITH HR 110-120 BPM. BILATERAL LUNGS ARE NOTED WITH DIMINISHED LUNG SOUNDS THROUGHOUT. SHE HAS RAPID, SHALLOW RESPIRATIONS. ABDOMEN IS ROUND, SOFT, AND NOTED TO HAVE DECREASED BOWEL SOUNDS IN ALL QUADRANTS. THERE IS A MODESTO DRAIN NOTED WITH A MODERATE AMOUNT OF BLOODY DRAINAGE. DRAINAGE DOES APPEAR TO HAVE DECREASED SINCE YESTERDAY. DRESSINGS TO ABDOMEN ARE DRY AND INTACT WITH NO S/SX INFECTION NOTED. THERE IS 1+ EDEMA TO UPPER AND LOWER EXTREMITIES. HER VITALS THIS MORNING ARE: 99.8-118-25-93%-163/72. LABS WERE OBTAINED. ABNORMAL LAB VALUES INCLUDE THE FOLLOWING: WBC 16.7, RBC 3.12, HGB 8.7, HCT 26.1, PLT COUNT 139, SODIUM 150, POTASSIUM 2.8, CHLORIDE 112, BUN 30, GLUCOSE 228, CALCIUM 12.7, AST 65, ALK PHOS 130, TOTAL PROTEIN 5.9. PRELIMINARY BLOOD AND DRAINAGE CULTURES ARE NEGATIVE. AN ABG WAS OBTAINED AND REVEALED: PH 7.520, PC02 36, P02 63, HC03 29.4, 02 SAT 94, BASE EXCESS 6.3, A-A GRADIENT 149, FI02 36. A CHEST XRAY WAS OBTAINED THIS MORNING AND REVEALED: No change in the left perihilar prominent central vascularity versus interstitial infiltrate but increasing airspace disease right upper lobe which may be atelectasis versus developing pneumonia. Recommend radiographic follow-up. Right internal jugular central venous catheter in place. WE REPEATED A BRAIN CT AND IT WAS NEGATIVE FOR ACUTE INTRACRANIAL ABNORMALITY. WE WILL CONTINUE CURRENTLY PLAN OF CARE TODAY FOR SEPSIS AND HYPERCALCEMIA. WE WILL CONTINUE TO CONSULT WITH ABOUT PLAN OF CARE. OTHERWISE, WE PLAN TO FOLLOW UP WITH AM LABS, CHEST XRAY, ABG, AND CONTINUE TO MONITOR.. TIME SPENT ON CLINICAL ASSESSMENT, REVIEWING LABS AND IMAGING, DECISION MAKING, AND DOCUMENTATION GREATER THAN 75 MINUTES. - Past Medical Family Social History Past Med/Fam/Surg Hx: No changes since H&P Allergies: Allergies codeine Allergy (Verified 09/22/20 20:50) - Review of Systems ROS: No change since H&P - Vital Signs and I&O's Vital Signs: Temperature 97.9 F Pulse Rate [Left] 111 Pulse Rate 144 Respiratory Rate 34 Blood Pressure [Right Arm] 158/88 Blood Pressure [Left Arm] 172/101 Blood Pressure 164/89 O2 Sat by Pulse Oximetry 91 Intake and Output: Intake & Output 09/30/20 10/01/20 10/02/20 10/03/20 11:59 11:59 11:59 11:59 Intake Total 3690 / 3690 3340 / 3340 2300 / 2300 2073 / 2073 Output Total 2200 / 2200 5120 / 5120 3720 / 3720 1890 / 1890 Balance 1490 / 1490 -1780 / -1780 -1420 / -1420 184 / 184 - Physical Exam Oriented: Unable to test Eyes: Normal Ear: Normal Nose: Normal Throat: Normal Respiratory: Diminished Cardiovascular: Normal : Normal Auscultation: Bowel Sounds: Decreased (soft abdomen . BS hypoactive ..) Palpation: Normal Tenderness: Diffuse (soft , flat abdomen with hypoactive BS .) Skin: Normal Musculoskeletal: Normal Psychiatric: Other (PATIENT ONLY MOANS TO VERBAL/TACTILE STIMULULATION ) Mood Description: Calm Affect: Normal Speech Pattern: Inappropriate - Laboratory and Diagnostics Result Diagrams: 10/03/20 05:18 10/03/20 05:18 Labs: 09/30/20 11:50 Drainage - Preliminary 09/30/20 11:48 Blood Blood Culture - Preliminary 09/30/20 12:28 Blood Blood Culture - Preliminary 09/26/20 05:16 Blood Blood Culture - Final 09/26/20 05:10 Blood Blood Culture - Final 09/22/20 20:30 Blood Blood Culture - Final 09/22/20 20:05 Blood Blood Culture - Final 09/24/20 11:46 Urine,Clean Catch Urine Culture - Final Laboratory WBC 19.2 X10^3/uL (3.6-10.0) H 10/03/20 05:18 RBC 3.17 X10^6/uL (3.5-5.4) L 10/03/20 05:18 Hgb 8.7 g/dL (12.0-16.0) L 10/03/20 05:18 Hct 26.8 % (36.0-47.0) L 10/03/20 05:18 MCV 84.6 fL (80.0-100.0) 10/03/20 05:18 MCH 27.5 pg (27.0-34.0) 10/03/20 05:18 MCHC 32.5 g/dL (33.0-35.0) L 10/03/20 05:18 RDW 19.6 % (11.6-16.5) H 10/03/20 05:18 Plt Count 131 X10^3/uL (150.0-450.0) L 10/03/20 05:18 Plt Count Comment Decreased (ADEQUATE) A 10/03/20 05:18 MPV 10.4 fL (7.4-11.0) 10/03/20 05:18 Neut % (Auto) 53.5 % (42.0-75.0) 10/03/20 05:18 Lymph % (Auto) 34.8 % (21.0-51.0) 10/03/20 05:18 Wright % (Auto) 9.8 % (0.0-13.0) 10/03/20 05:18 Eos % (Auto) 0.9 % (0.9-2.9) 10/03/20 05:18 Baso % (Auto) 1.0 % (0.2-1.0) 10/03/20 05:18 Neut # (Auto) 10.3 x10^3/uL (2.2-4.8) H 10/03/20 05:18 Lymph # (Auto) 6.7 X10^3/uL (1.3-2.9) H 10/03/20 05:18 Wright # (Auto) 1.9 x10^3/uL (0.3-0.8) H 10/03/20 05:18 Eos # (Auto) 0.2 x10^3/uL (0.0-0.2) 10/03/20 05:18 Baso # (Auto) 0.2 X10^3/uL (0.0-0.1) H 10/03/20 05:18 Absolute Nucleated RBC 3.9 /100WBC 10/03/20 05:18 Total Counted 100 10/03/20 05:18 Neutrophils % (Manual) 52 % (39-76) 10/03/20 05:18 Band Neutrophils % 3 % (0-10) 10/03/20 05:18 Lymphocytes % (Manual) 38 % (13-43) 10/03/20 05:18 Monocytes % (Manual) 4 % (4-9) 10/03/20 05:18 Eosinophils % (Manual) 2 % (0-6) 10/01/20 05:24 Basophils % (Manual) 1 % (0-1) 09/29/20 05:14 Metamyelocytes % 3 10/03/20 05:18 Myelocytes % 2 10/01/20 05:24 Promyelocytes % 1 09/30/20 07:52 Nucleated RBCs 6 10/03/20 05:18 Atypical Lymphocytes Rare A 09/27/20 04:05 Blast Cells Cancelled 09/24/20 04:00 Smudge Cells Cancelled 09/24/20 04:00 Toxic Granulation Cancelled 09/24/20 04:00 Dohle Bodies Cancelled 09/24/20 04:00 Isabela Rods Cancelled 09/24/20 04:00 Plt Clumps, EDTA Cancelled 09/24/20 04:00 Giant Platelets Cancelled 09/24/20 04:00 Plt Morphology Comment Normal (NORMAL) 10/03/20 05:18 RBC Morphology Abnormal (NORMAL) A 10/03/20 05:18 Dimorphic RBCs Cancelled 09/24/20 04:00 Polychromasia Cancelled 09/24/20 04:00 Hypochromasia Cancelled 09/24/20 04:00 Poikilocytosis Cancelled 09/24/20 04:00 Basophilic Stippling Cancelled 09/24/20 04:00 Anisocytosis Slight A 10/03/20 05:18 Microcytosis Cancelled 09/24/20 04:00 Macrocytosis Cancelled 09/24/20 04:00 Spherocytes Cancelled 09/24/20 04:00 Pappenheimer Bodies Cancelled 09/24/20 04:00 Sickle Cells Cancelled 09/24/20 04:00 Target Cells Cancelled 09/24/20 04:00 Tear Drop Cells Cancelled 09/24/20 04:00 Ovalocytes Cancelled 09/24/20 04:00 Stomatocytes Cancelled 09/24/20 04:00 Helmet Cells Cancelled 09/24/20 04:00 Lockhart-Dunnell Bodies Cancelled 09/24/20 04:00 Isabel Rings Cancelled 09/24/20 04:00 [place] Cells Cancelled 09/24/20 04:00 Crenated Cell Cancelled 09/24/20 04:00 Acanthocytes (Spur) Cancelled 09/24/20 04:00 Rouleaux Cancelled 09/24/20 04:00 Schistocytes Cancelled 09/24/20 04:00 Smear Path Review See note 09/24/20 04:00 ESR 7 MM/HOUR (0-20) 09/22/20 20:05 PT 18.4 SECONDS (11.8-14.3) 09/25/20 16:22 INR Target Range - 09/25/20 16:22 INR 1.58 (0.8-1.3) H 09/25/20 16:22 APTT 39.5 SECONDS (22.9-36.5) H 09/25/20 16:22 PTT Comment - 09/25/20 16:22 D-Dimer 3.13 ug/ml (0.0-0.57) H* 10/03/20 05:18 Sample Site Rrad 10/03/20 05:41 ABG pH 7.540 (7.35-7.45) H 10/03/20 05:41 ABG pCO2 33.0 mmHg (35.0-45.0) L 10/03/20 05:41 ABG pO2 65.0 mmHg (80.0-100.0) L 10/03/20 05:41 ABG HCO3 28.2 mmol/L (22-26) H 10/03/20 05:41 ABG O2 Saturation 95.0 % (90-100) 10/03/20 05:41 ABG Base Excess 5.8 mmol/L (-2.0-2.0) H 10/03/20 05:41 Isreal Test Pos 10/03/20 05:41 A-a Gradient 93.0 mmHg 10/03/20 05:41 FiO2 28.0 10/03/20 05:41 Blood Gas Comments Kirit well-mtf 10/03/20 05:41 Sodium 154 mmol/L (136-145) H* 10/03/20 05:18 Corrected Sodium 156 mmol/L (136-145) H 10/03/20 05:18 Potassium 3.0 mmol/L (3.5-5.1) L* 10/03/20 05:18 Chloride 115 mmol/L (98-107) H* 10/03/20 05:18 Carbon Dioxide 26.3 mmol/L (21-32) 10/03/20 05:18 BUN 37 mg/dL (7-18) H 10/03/20 05:18 Creatinine 0.93 mg/dL (0.55-1.02) 10/03/20 05:18 Est GFR (MDRD) Af Amer > 60 (>60) 10/03/20 05:18 Est GFR (MDRD) Non-Af > 60 (>60) 10/03/20 05:18 Glucose 197 mg/dL (65-99) H 10/03/20 05:18 POC Glucose (mg/dL) 192 mg/dL (65-99) H 10/03/20 05:42 Lactic Acid 1.7 mmol/L (0.4-2.0) 09/26/20 08:47 Calcium 12.5 mg/dL (8.5-10.1) H* 10/03/20 05:18 Corrected Calcium 13.1 mg/dL (8.5-10.1) H 10/03/20 05:18 Ionized Calcium Marisela 1.70 mmol/L (1.11-1.30) H* 10/01/20 10:30 Ionized Calcium pH 7.4 1.86 mmol/L (1.11-1.30) H* 10/01/20 10:30 Magnesium 2.0 mg/dL (1.7-2.9) 10/03/20 05:18 Total Bilirubin 0.80 mg/dL (0.2-1.0) 10/03/20 05:18 AST 71 Units/L (15-37) H 10/03/20 05:18 ALT 18 Units/L (12-78) 10/03/20 05:18 Alkaline Phosphatase 125 Units/L (46-116) H 10/03/20 05:18 Lactate Dehydrogenase 1870 Units/L (81-234) H 10/03/20 05:18 Creatine Kinase 326 Units/L (26-192) H 09/26/20 08:47 CK-MB (CK-2) 2.5 ng/mL (0-4.0) 09/26/20 08:47 CK/CKMB % Calc 0.8 % (<4) 09/26/20 08:47 Troponin I 0.13 ng/mL (0-1.5) 09/26/20 08:47 C-Reactive Protein 115.30 mg/L (0-3.0) H 10/01/20 05:24 B-Natriuretic Peptide 37.5 pg/mL (0-79) 09/27/20 04:05 Total Protein 5.9 g/dL (6.4-8.2) L 10/03/20 05:18 Albumin 3.3 g/dL (3.4-5.0) L 10/03/20 05:18 Globulin 2.6 g/dL (2.5-4.5) 10/03/20 05:18 Albumin/Globulin Ratio 1.3 Ratio (1.1-2.1) 10/03/20 05:18 Prealbumin 10.5 mg/dL (18-35.7) L 10/01/20 05:24 Amylase 15 Units/L (25-115) L 09/24/20 04:10 Lipase 193 Units/L (73-393) 09/24/20 04:10 Carcinoembryonic Ag 1.4 ng/mL (0.0-3.0) 10/01/20 10:30 Specimen Type Catherized urine 09/27/20 14:03 Urine Color Dark yellow (YELLOW) 09/27/20 14:03 Urine Appearance Hazy (CLEAR) 09/27/20 14:03 Urine pH 5.0 (5.0 - 8.0) 09/27/20 14:03 Ur Specific [place] 1.020 (1.000-1.030) 09/27/20 14:03 Urine Protein 3+ (NEGATIVE) 09/27/20 14:03 Urine Glucose (UA) Negative (NEGATIVE) 09/27/20 14:03 Urine Ketones Negative (NEGATIVE) 09/27/20 14:03 Urine Occult Blood 5+ (NEGATIVE) 09/27/20 14:03 Urine Nitrite Negative (NEGATIVE) 09/27/20 14:03 Urine Bilirubin Negative (NEGATIVE) 09/27/20 14:03 Urine Urobilinogen Normal (NORMAL) 09/27/20 14:03 Ur Leukocyte Esterase Negative (NEGATIVE) 09/27/20 14:03 Urine RBC 30-50 /HPF (0-3) A 09/27/20 14:03 Urine WBC None seen /HPF (0-5) 09/27/20 14:03 Ur Squamous Epith Cells Negative /HPF (NEGATIVE) 09/27/20 14:03 Uric Acid Crystals Few /HPF (NEGATIVE) 09/27/20 14:03 Urine Bacteria Negative /HPF (NEGATIVE) 09/27/20 14:03 Ur Culture Indicated? No/not indicated 09/27/20 14:03 Vancomycin Trough 18.8 ug/mL (15-20) 10/01/20 20:35 Urine Opiates Screen Negative (NEG=<300) 09/22/20 21:01 Urine Methadone Screen Negative (NEG=<300) 09/22/20 21:01 Acetaminophen < 0.0 ug/mL (10-30) L 10/01/20 14:26 Ur Barbiturates Screen Negative (NEG=<200) 09/22/20 21:01 Ur Phencyclidine Scrn Negative (NEG=<25) 09/22/20 21:01 Ur Amphetamines Screen Negative (NEG=<1000) 09/22/20 21:01 U Benzodiazepines Scrn Negative (NEG=<200) 09/22/20 21:01 Urine Cocaine Screen Negative (NEG=<300) 09/22/20 21:01 U Marijuana (THC) Screen Negative (NEG=<50) 09/22/20 21:01 SARS-CoV-2 (PCR) Negative (NEGATIVE) 09/23/20 00:08 Influenza Type A (PCR) Negative (NEGATIVE) 10/01/20 18:10 Influenza Type B (PCR) Negative (NEGATIVE) 10/01/20 18:10 RSV (PCR) Negative (NEGATIVE) 09/23/20 00:08 SARS CoV-2 RNA Rapid MIKHAIL Negative (NEGATIVE) 10/01/20 18:10 Tissue Pathology To follow 09/25/20 15:24 Miscellaneous Test Cancelled 10/01/20 05:24 Blood Type A POSITIVE 09/29/20 12:51 Antibody Screen Negative 09/29/20 12:51 Crossmatch See Detail 09/29/20 12:51 Tx React Prelim Eval Inconclusive 09/25/20 22:05 Tx React Symptoms Fever 09/25/20 22:05 Reaction Path Interpret Febrile reaction 09/25/20 22:[address] 09/25/20 22:05 Blood Bank Comment Performed by P2 09/25/20 22:05 - Plan (1) Acute cholecystitis Status: Acute Plan: DAY 7 S/P LAPCHOLE, NS AT 65 ML/HR, LEVAQUIN 500MG IV DAILY, ZOSYN IV, VANCOMYCIN IV, DIFLUCAN 200MG IV DAILY, VISTARIL 25-50MG Q8H PRN, ZOFRAN 4MG IV Q4H PRN, PHENERGAN 6.25MG IM PRN, THE POTASSIUM AND MAGNESIUM PROTOCOLS, LOPRESSOR PRN, HYDRALAZINE PRN, TPN, HUMULIN R SLIDING SCALE, MORPHINE PRN, G EODON 20MG IM BID PRN (2) Acute UTI Status: Acute (3) Sepsis Status: Acute Qualifiers: Sepsis type: sepsis due to unspecified organism Sepsis acute organ dysfunction status: unspecified Qualified Code(s): A41.9 - Sepsis, unspecified organism (4) Pneumonia Status: Acute Qualifiers: Pneumonia type: due to unspecified organism Laterality: bilateral Lung location: unspecified part of lung Qualified Code(s): J18.9 - Pneumonia, unspecified organism (5) Hypercalcemia Status: Acute (6) Respiratory alkalosis Status: Acute
[2020-10-03 11:58] LABS: ABG BASE EXCESS 4.9 mmol/L (-2.0-2.0); ABG HCO3 27.9 mmol/L (22-26)
[2020-10-03 11:59] LABS: ABG ALLEN TEST POS
--- NOTE | 2020-10-03 12:07 | RAD ---
HISTORYNGT TUBE PLACEMENT HX DM, HTN. SX GASTRIC BYPASS, APPENDIX, HYST. RECENT GBSTUDYKUBCOMPARISONAbdominal film October 01, 2020.FINDINGSEvaluation of the abdomen demonstrates a normal bowel gas pattern. Skin carline are seen right upper quadrant and left lower quadrant from recent surgery. Surgical clips are seen from cholecystectomy sutures are seen along the area of the stomach in the left upper quadrant consistent with gastric bypass surgery. Phleboliths are seen in the pelvis. The NG tube is been placed in is in good position with both the tip of the NG tube in the side hole in the left mid abdomen in the normal expected location of the body of the stomach. The tip significantly caudal to the gastric sutures suggest the stomach is distended. No pathological soft tissue mass or calcification can be observed. The bony structures are grossly intact.IMPRESSIONPostsurgical changes from recent cholecystectomy.An NG tube is in place but the tip lies significantly lower than the gastric sutures which are seen along the lesser curve suggesting that the stomach is distended with fluid.Electronically signed by: CHAN MARTINEZ (Oct 03, 2020 12:04:48)
--- NOTE | 2020-10-03 12:18 | RAD ---
HISTORYET TUBE PLACEMENTSTUDYCHEST x-ray, 1 VIEWCOMPARISONX-ray 10/03/2020FINDINGSTracheostomy tube is seen terminating 4.1 cm above the leandra. Enteric tube passes into the stomach. Central venous catheter terminates in the region of the right atrium of heart. Heart is normal in size. Right lung apex is excluded. No large pneumothorax is seen. Possible minimal persistent infiltrate in the left perihilar region. No pleural effusion is seen.IMPRESSIONEndotracheal tube terminates 4.1 cm above the leandra.Electronically signed by: Jack Benitez (Oct 03, 2020 12:16:49)
[2020-10-03 12:26] LABS: ABG HCO3 24.5 mmol/L (22-26)
[2020-10-03 12:27] LABS: ABG ALLEN TEST POS
[2020-10-03] MEDS ORDERED: VERSED IV PREMIX 100 MG/100 ML IV.SOLN IV PRN (13:31)
[2020-10-03] MEDS ORDERED: DIPRIVAN PREMIX 1 GRAM IV 1,000 MG/100 ML VIAL IV PRN (13:31)
[2020-10-03] MEDS ORDERED: OFIRMEV IV 1000 MG VIAL 1,000 MG/100 ML VIAL IV ONE (14:13)
[2020-10-03] MEDS: OFIRMEV IV 1000 MG VIAL 1,000 MG/100 ML VIAL IV PRN (14:20)
[2020-10-03 15:37] VITALS: BP 133/68
[2020-10-04 09:29] LABS: PARATHYROID HORMONE INT 12 pg/mL (15-65)
[2020-10-05 02:46] LABS: ALBUMIN (SPEP) 3.24 g/dL (3.75-5.01); ALPHA-1 (SPEP) 0.54 g/dL (0.19-0.46); ALPHA-2 (SPEP) 0.59 g/dL (0.48-1.05); GAMMA (SPEP) 0.33 g/dL (0.62-1.51)
== END 2020-10-03 15:25 | disposition short-term general hospital (02) | DRG 871 ==
LOC: ER 19:51 → OBS 09-23 01:14 → MED/SURG 09-26 03:14 → OBS 09-27 14:21
PROVIDERS: ADMIT Internal Medicine; ATTEND Internal Medicine